=== PATIENT | male | born 1965 | race Caucasian/White ===

== ENCOUNTER → 2017-04-08 09:30 | Outpatient (CLI) | payer MEDICAID ==
[2016-05-19 04:00] VITALS: BMI 26.5
[~2017-04-08 09:30] MED LIST: ANTIVERT25 MG PO; BENTYL10 MG PO; CYCLOBENZAPRINE10 MG PO; ENULOSE10 G/15 ML PO; HYDROCODON-ACE1 EAC7 PO; HYDROCODONE-APA1 TAB PO; IPRAT-ALBUT 0.5-3 ML UPD; LEVAQUIN750 MG PO; MEVACOR20 MG PO; MIRALAX17 GM PO; MUCINEX600 MG PO; NICODERM C1 PATCH .1 TRANSDERM; PERCOCET 10/3251 TA1 PO; PRILOSEC20 MG PO; PROZAC40 MG PO; REQUIP1 MG PO; ROBAXIN500 MG PO; TESSALON PERLE100 MG PO; XANAX0.5 MG PO; ZESTORETIC 10/11 TAB PO
[2017-04-08 11:05] LABS: BASOPHILS 0.2 % (0-2); EOSINOPHILS 0.4 % (0-7); HEMATOCRIT 43.9 % (42.0-54.0); IMMATURE GRANULOCYTES 0.1 % (0-5); LYMPHOCYTES 34.7 % (15-50); MCH 30.2 pg (26.0-34.0); MCHC 34.2 g/dL (31.0-37.0); MCV 88.5 fL (80.0-100.0); MEAN PLATELET VOLUME 9.4 fL (7.4-10.4); MONOCYTES 5.5 % (2-11); NEUTROPHILS 59.1 % (40-80); RBC 4.96 10x6/uL (4.20-6.10); RDW 12.9 % (11.5-14.5); WBC 8.6 10x3/uL (4.8-10.8)
[2017-04-08 11:11] LABS: PLATELET COUNT 200 10x3/uL (130-400)
[2017-04-09 08:22] LABS: IMMUNOGLOBULIN E 5 IU/mL (0-100)
[2017-04-09 09:18] LABS: IMMUNOGLOBULIN A 208 mg/dL (90-386); IMMUNOGLOBULIN G 955 mg/dL (700-1600); IMMUNOGLOBULIN M 22 mg/dL (20-172)
== END | disposition home or self-care (01) ==
LOC: D.RT 09:30
PROVIDERS: Internal Medicine Pulmonary Disease
DX: J44.9 Chronic obstructive pulmonary disease, unspecified (principal)

== ENCOUNTER 2017-06-25 15:03 | Emergency (ER) | payer MEDICAID ==
[2016-05-19 04:00] VITALS: BMI 26.5
[2017-06-25 17:01] LABS: BASOPHILS 0.3 % (0-2); EOSINOPHILS 0.6 % (0-7); HEMATOCRIT 42.6 % (42.0-54.0); HEMOGLOBIN 14.6 g/dL (13.5-17.5); IMMATURE GRANULOCYTES 0.1 % (0-5); LYMPHOCYTES 38.2 % (15-50); MCHC 34.3 g/dL (31.0-37.0); MCV 87.7 fL (80.0-100.0); MONOCYTES 6.6 % (2-11); NEUTROPHILS 54.2 % (40-80); PLATELET COUNT 166 10x3/uL (130-400); RBC 4.86 10x6/uL (4.20-6.10); RDW 12.5 % (11.5-14.5); WBC 6.7 10x3/uL (4.8-10.8)
[2017-06-25 17:15] LABS: APTT 29.8 SECONDS (22.8-39.4); INR 1.01 (0.85-1.17); PROTIME 13.1 SECONDS (11.6-15.0)
[2017-06-25 17:23] LABS: ALBUMIN 3.9 g/dL (3.4-5.0); ALKALINE PHOSPHATASE 114 U/L (46-116); ALT (SGPT) 28 U/L (10-68); BILIRUBIN - TOTAL 0.45 mg/dL (0.2-1.3); CALC OSMOLALITY 276 mosm/kg (275-300); CALCIUM 8.9 mg/dL (8.5-10.1); CARBON DIOXIDE 31.6 mmol/L (21.0-32.0); CHLORIDE - SERUM 100 mmol/L (98-107); CREATININE - SERUM 0.8 mg/dL (0.6-1.3); GLUCOSE 107 mg/dL (74-106); SODIUM 140 mmol/L (136-145); UREA NITROGEN 6 mg/dL (7-18); eGFR NON AFRICAN AMERICAN > 90 mL/min (90-120)
== END 2017-06-25 19:55 | disposition home or self-care (01) ==
LOC: D.ER 15:03
PROVIDERS: Emergency Medicine
DX: R19.4 Change in bowel habit (principal); E87.6 Hypokalemia; K21.9 Gastro-esophageal reflux disease without esophagitis; I10 Essential (primary) hypertension

== ENCOUNTER → 2018-01-08 07:22 | Outpatient (CLI) | payer MEDICAID ==
[2016-05-19 04:00] VITALS: BMI 26.5
== END | disposition home or self-care (01) ==
LOC: D.RT 07:22
DX: J44.9 Chronic obstructive pulmonary disease, unspecified (principal)

== ENCOUNTER 2018-01-27 08:45 | Outpatient (CLI) | payer MEDICAID ==
[~2018-01-27] VITALS: Ht 172.7 cm; Wt 82.6 kg
[2018-01-27] MEDS ORDERED: BREO ELLIPTA 21 EACH (09:08)
[2018-01-27 09:17] VITALS: BP 133/88; Ht 172.7 cm; Wt 82.6 kg
[2018-01-27 09:25] LABS: BASOPHILS 0.4 % (0-2); EOSINOPHILS 1.1 % (0-7); HEMATOCRIT 40.4 % (42.0-54.0); HEMOGLOBIN 13.6 g/dL (13.5-17.5); IMMATURE GRANULOCYTES 0.3 % (0-5); LYMPHOCYTES 30.2 % (15-50); MCH 30.1 pg (26.0-34.0); MCHC 33.7 g/dL (31.0-37.0); MCV 89.4 fL (80.0-100.0); MONOCYTES 6.5 % (2-11); NEUTROPHILS 61.5 % (40-80); PLATELET COUNT 195 10x3/uL (130-400); RBC 4.52 10x6/uL (4.20-6.10); RDW 12.7 % (11.5-14.5)
[2018-01-27 09:31] LABS: APTT 29.1 SECONDS (22.8-39.4); INR 0.98 (0.85-1.17); PROTIME 12.6 SECONDS (11.6-15.0)
[2018-01-27 13:16] LABS: EOS BF 16 %; MACROPHAGES BF 22 %; MESOTHELIALS BF 38 %; NEUT - BF 9 %
[2018-01-29 15:28] LABS: AFB SPECIMEN PROCESSING Concentration (())
[2018-01-30 10:20] LABS: FUNGUS STAIN Final report (())
[2018-02-06 08:16] LABS: VIRAL - RESULT No virus isolated. (())
[2018-02-25 15:28] LABS: FUNGUS MYCOLOGY CULTURE Final report (())
[2018-03-23 13:13] LABS: ACID FAST CULTURE Negative (()); ACID FAST SMEAR Negative (())
== END 2018-01-27 13:45 | disposition home or self-care (01) ==
LOC: D.OPS 08:45
PROVIDERS: Internal Medicine Pulmonary Disease
DX: J84.9 Interstitial pulmonary disease, unspecified (principal); J44.9 Chronic obstructive pulmonary disease, unspecified; R05 Cough; J30.9 Allergic rhinitis, unspecified; K21.9 Gastro-esophageal reflux disease without esophagitis; Z72.0 Tobacco use; R93.8 Abnormal findings on diagnostic imaging of other specified body structures; R94.2 Abnormal results of pulmonary function studies; I10 Essential (primary) hypertension; Z01.812 Encounter for preprocedural laboratory examination

== ENCOUNTER 2018-02-26 23:49 | Observation (INO) | payer MEDICAID ==
[~2018-02-26] VITALS: Ht 172.7 cm; Wt 80.6 kg
--- NOTE | ~2018-02-26 | HEMODYNAMI ---
PATIENT:DAJA LAZARO MEDICAL RECORD: [id number] : 65 [facility] [facility] [id number] ADMISSION DATE: 02/27/18 Generatedon:02/27/201811:32 Patient name: DAJA LAZARO Patient #: [id number] SS N: : 1965 Date of study: 02/27/2018 Page: Of Hemodynamic Procedure Report Patient Data Patient Demographics Procedure consent was obtained First Name: DAJA Gender: Male Last Name: TEJAS : 1965 Middle Initial: E Age: 52 year(s) Patient #: [id number] Race: Unknown Additional ID: [id number] Contact details Address: [address] [place] [address] State: [place] City: [place] Zip code: [address] Admission Admission Data Admission Date: 02/27/2018 Admission Time: 2:18 Room #: .2125 Procedure Procedure Types Cath Procedure Diagnostic Procedure LHC LH w/Coronaries Sedation Charges Moderate Sedation up to 15 minutes PCI Procedure Coronary Stent Coronary Stent Initial PTCA PTCA Additional Peripheral Cath Diagnostic Procedure Cath Peripheral Ldpqf-Uvivwll-Vwu-Off Procedure Description Procedure Date Procedure Date: 02/27/2018 Procedure Start Time: 11:06 Procedure End Time: 11:30 Procedure Staff Name Function Jesus Lake MD Performing Physician Michelle Castro RT Monitor Carli Ashton RN Nurse Marizol Nguyen RT Scrub Procedure Data Cath Procedure Fluoroscopy Diagnostic fluoroscopy Total fluoroscopy Time: 7.2 time: 7.2 min min Diagnostic fluoroscopy Total fluoroscopy dose: dose: 1318 mGy 1318 mGy Contrast Material Contrast Material Type Amount (ml) Isovue 300 175 Entry Location Entry Primary Successful Side Size Upsize Upsize Entry Closure Succes sful Closure Location (Fr) 1 (Fr) 2 (Fr) Remarks Device Remarks Femoral Right 6 Fr Exoseal artery Short Estimated blood loss: 10 ml Diagnostic catheters Device Type Used For End Catheter Placement MULTIPACK Pigtail 5 Fr Procedure catheter MULTIPACK JL 4.0 5Fr Procedure catheter MULTIPACK 3DRC 5Fr Procedure catheter Procedure Complications No complications Procedure Medications Medication Administration Route Dosage Oxygen NC 2 l/min Lidocaine 2% added to field 20 Heparin Flush Bag added to field 2 bags (1000units/500ml NS) 0.9% NaCl I.V. 100 ml/hr Versed I.V. 2 mg Fentanyl I.V. 100 mcg Versed I.V. 1 mg Fentanyl I.V. 50 mcg Versed I.V. 1 mg Fentanyl I.V. 50 mcg Heparin Bolus I.V. 4000 units Integrilin (Bolus I.V. 7.3 ml 2mg/ml) Versed I.V. 0.5 mg Fentanyl I.V. 25 mcg Plavix P.O. 600 mg Hemodynamics Rest Heart Rate: 72 (bpm) Snapshots Pre Cath Intra NCS Post Cath Vital Signs Time Heart Resp SPO2 etCO2 NIBP (mmHg) Rhythm Pain Status Sedation Rate (ipm) (%) (mmHg) Level (bpm) 10:43:38 75 15 95 0 128/90(111) NSR 4 (11) , 10(A) Distressing 10:47:48 79 15 92 37.1 131/83(110) NSR 4 (11) , 10(A) Distressing 10:51:57 79 13 97 28.9 123/88(114) NSR 4 (11) , 10(A) Distressing 10:56:05 74 16 97 13.3 114/84(97) NSR 4 (11) , 10(A) Distressing 11:00:09 77 18 97 19.3 113/87(110) NSR 4 (11) , 10(A) Distressing 11:04:15 73 18 97 17.8 104/72(94) NSR 4 (11) , 10(A) Distressing 11:08:21 76 16 97 17 101/70(96) NSR 4 (11) , 9(A) Distressing 11:13:22 78 16 97 20 114/79(89) NSR 4 (11) , 9(A) Distressing 11:17:23 77 16 97 22.2 111/70(91) NSR 4 (11) , 9(A) Distressing 11:21:29 75 16 97 8.1 93/68(85) NSR 4 (11) , 9(A) Distressing 11:25:35 74 17 97 21.5 100/57(77) NSR 4 (11) , 10(A) Distressing Medications Time Medication Route Dose Verified Delivered Reason Notes Effectiveness by by 10:43:53 Oxygen NC 2 Jesus Buffie used for l/min Aleksandra Ashton RN procedure 10:43:58 Lidocaine 2% added 20ml Jesus Jesus for local to vial Aleksandra Lake MD anesthetic field 10:44:06 Heparin Flush added 2 Jesus Jesus used for Bag to bags Aleksandra Lake MD procedure (1000units/500ml field NS) 10:44:14 0.9% NaCl I.V. 100 Jesus Buffie Per physician ml/hr Aleksandra Ashton RN 11:01:40 Versed I.V. 2 mg Jesus Buffie for sedation Aleksandra Ashton RN 11:01:45 Fentanyl I.V. 100 Jesus Buffie for sedation mcg Aleksandra Ashton RN 11:05:52 Versed I.V. 1 mg Jesus Rhoadesie for sedation Aleksandra Ashton RN 11:05:56 Fentanyl I.V. 50 Jesus Buffie for sedation mcg Aleksandra Ashton RN 11:08:16 Versed I.V. 1 mg Jesus Buffie for sedation Aleksandra Ashton RN 11:08:19 Fentanyl I.V. 50 Jesus Buffie for sedation mcg Aleksandra Ashton RN 11:14:23 Heparin Bolus I.V. 4000 Jesus Buffie for VERIFI ED units Aleksandra Ashton RN anticoagulation WITH DR LAKE 11:15:12 Integrilin I.V. 7.3 Jesus Boyce for WASTED (Bolus 2mg/ml) ml Aleksandra Ashton RN antiplatelet 2.7 ML therapy OF VIAL 11:21:38 Versed I.V. 0.5 Jesus Buffie for sedation mg Aleksandra Ashton RN 11:21:42 Fentanyl I.V. 25 Jesus Buffie for sedation mcg Aleksandra Ashton RN 11:28:46 Plavix P.O. 600 Jesus Buffie for mg Aleksandra Ashton RN antiplatelet therapy Procedure Log Time Note 10:24:21 Diagnostic Cath status Elective 10:24:23 Michelle Castro RT(R) sent for patient. Start room use. 10:24:24 Time tracking: Regular hours 10:24:28 Plan of Care:Hemodynamics will remain stable., Cardiac rhythm will remain stable., Comfort level will be maintained., Respiratory function will remain adequate., Patient/ family verbilizes understanding of procedure., Procedure tolerated without complication., Recovers from procedure without complications.. 10:24:35 Patient received from Med II to CCL 2 Alert and oriented. Tansferred to table in Supine position. 10:41:57 Warm blankets applied, and rebecca hugger turned on for patient comfort. 10:41:58 Correct patient and procedure confirmed by team. 10:41:59 Signed procedure consent form obtained from patient. 10:42:01 ECG and BP/O2 sat monitors applied to patient. 10:42:03 Vital chart was started 10:42:05 Baseline sample Acquired. 10:42:08 Rhythm: sinus rhythm 10:42:09 Full Disclosure recording started 10:42:16 H&P Date Dictated: 02/27/2018 New H&P dictated by physician.. 10:42:18 Pre-procedure instructions explained to patient. 10:42:18 Pre-op teaching completed and patient verbalized understanding. 10:42:20 Family unavailable. 10:42:25 Patient NPO since Midnight. 10:42:37 Is the patient allergic to Iodine/contrast media? No. 10:42:39 Was the patient premedicated? No 10:42:41 Is patient on blood thinner?Yes 10:42:44 ACC The patient was administered the following blood thiners within the last 24 hours: ACCPlavix 10:42:47 Patient diabetic? No. 10:42:49 Previous problem with sedation/anesthesia? No ? 10:42:54 Snore? Yes 10:43:06 Sleep apnea? No 10:43:07 Deviated septum? No 10:43:07 Opens mouth fully? Yes 10:43:08 Sticks out tongue? Yes 10:43:22 Airway obstruction? Yes copd chronic pneumonia 10:43:26 Dentures? No ? 10:43:30 Pre procedure: right dorsailis pedis pulse 1+ Palpable, but thready & weak; easily obliterated 10:43:32 Pre procedure: left dorsailis pedis pulse 1+ Palpable, but thready & weak; easily obliterated 10:43:36 Patient pain scale 4/10 ?. 10:43:42 IV patent on arrival in right forearm with 0.9% NaCl at [facility]. 10:43:45 Lab results completed and on chart. 10:43:51 Bilateral groins area was prepped with chlora-prep and draped in sterile fashion 10:43:53 Oxygen 2 l/min NC was administered by Carli Ashton RN; used for procedure; 10:43:53 Alarms reviewed by R. N. 10:43:53 Sharps counted by scrub and verified by R.N. 10:43:58 Lidocaine 2% 20ml vial added to field was administered by Jesus Lake MD; for local anesthetic; 10:44:06 Heparin Flush Bag (1000units/500ml NS) 2 bags added to field was administered by Jesus Lake MD; used for procedure; 10:44:14 0.9% NaCl 100 ml/hr I.V. was administered by Carli Ashton RN; Per physician; 10:52:15 Physician paged 11:01:17 Physician arrived 11::17 --------ALL STOP TIME OUT------ 11:01:18 Final Timeout: patient, procedure, and site verified with staff and physician. All members of the team are in agreement. 11:01:22 Bilateral groins site verified by team. 11:01:27 Physical assessment completed. ASA score P 2 - A patient with mild systemic disease as per Jesus Lake MD. 11:01:32 Sedation plan: IV Moderate Sedation Medication:Versed, Fentanyl 11:01:40 Versed 2 mg I.V. was administered by Carli Ashton RN; for sedation; 11::45 Fentanyl 100 mcg I.V. was administered by Carli Ashton RN; for sedation; 11:02:07 Use device set Femoral Dx 11:02:09 ACIST Syringe (62092) opened to sterile field. 11:02:09 Bag Decanter (2002) opened to sterile field. 11:02:11 Medline Cath Pack ([id number]) opened to sterile field. 11:02:17 Zero performed for pressure channel P1 11:03:21 SHEATH 6Fr Prelude ([id number]) opened to sterile field. 11:03:24 DIAGNOSTIC WIRE .035 260cm J wire (456639) opened to sterile field. 11:03:27 ACIST Hand Control (24525) opened to sterile field. 11:03:27 ACIST Manifold (48396) opened to sterile field. 11:03:30 DIAGNOSTIC Multipack 5Fr catheter set ([id number]) opened to sterile field. 11:03:31 Tegaderm 4 x 4 (1626W) opened to sterile field. 11:03:38 PERCUTANEOUS ENTRY 19GA needle opened to sterile field. 11:05:52 Versed 1 mg I.V. was administered by Carli Ashton RN; for sedation; 11::56 Fentanyl 50 mcg I.V. was administered by Carli Ashton RN; for sedation; 11:06:33 Procedure started. 11:06:41 Local anesthetic to right femoral artery with Lidocaine 2% by Jesus Lake MD.INITIAL ACCESS ONLY 11:07:30 A 6 Fr Short sheath was inserted into the Right Femoral artery 11:08:16 Versed 1 mg I.V. was administered by Carli Ashton RN; for sedation; 11:08:19 Fentanyl 50 mcg I.V. was administered by Carli Ashton RN; for sedation; 11:09:00 A MULTIPACK Pigtail 5 Fr catheter was advanced over the wire and used for Procedure. 11:09:08 LV angiography performed. 11:09:57 Left leg runoff performed. 11:09:58 Right leg runoff performed. 11:10:06 Catheter removed. 11:10:21 A MULTIPACK JL 4.0 5Fr catheter was advanced over the wire and used for Procedure. 11:11:48 LCA angiography performed. 11:11:50 Catheter removed. 11:12:00 A MULTIPACK 3DRC 5Fr catheter was advanced over the wire and used for Procedure. 11:12:10 RCA angiography performed. 11:12:43 INFLATOR Merit BasixCompak (ZU1574) opened to sterile field. 11:13:40 GUIDE 6FR XBLAD 3.5 catheter ([id number]) opened to sterile field. 11:13:41 CHOICE PT Extra Support 182cm wire ([id number]) opened to sterile field. 11:13:56 Catheter removed. 11:13:58 Proceeding to intervention. 11:14:12 6 Fr XBLAD 3.5 guide catheter was inserted over the wire 11:14:20 Choice pt ex wire advanced. 11:14:21 Wire advanced across lesion. 11:14:23 Heparin Bolus 4000 units I.V. was administered by Carli Ashton RN; for anticoagulation; VERIFIED WITH DR LAKE 11:15:12 Integrilin (Bolus 2mg/ml) 7.3 ml I.V. was administered by Carli Ashton RN; for antiplatelet therapy; WASTED 2.7 ML OF VIAL 11:17:46 Place stent Inflation Number: 1 A INTEGRITY RX 2.5 x 26 stent ([id number]) was prepped and advanced across the Mid LAD. The stent was deployed at 15 CHARLY for 0:07 (min:sec). 11:20:32 Wire redirected to diag. 11:21:38 Versed 0.5 mg I.V. was administered by Carli Ashton RN; for sedation; 11::42 Fentanyl 25 mcg I.V. was administered by Carli Ashton RN; for sedation; 11:21:49 Inflate balloon Inflation number: 1 A EUPHORA 2.0 x 12 Balloon ([id number]) was prepped and advanced across the 2nd Diag, then inflated to 13 CHARLY for 0:11 (min:sec). 11:22:14 Inflation number: 2 The EUPHORA 2.0 x 12 Balloon ([id number]) was reinflated across the 2nd Diag, to 13 CHARLY for 0:20 (min:sec). 11:23:49 Inflation number: 2 The EUPHORA 2.0 x 12 Balloon ([id number]) was reinflated across the Mid LAD, to 13 CHARLY for 0:07 (min:sec). 11:24:39 EXOSEAL 6Fr (EX600) opened to sterile field. 11:24:55 Wire removed. 11:24:55 Guide catheter removed. 11:25:08 Sheath removed intact; hemostasis achieved with Exoseal to the Right Femoral artery. 11:26:07 Procedure ended.(Physican Out) 11:26:33 Fluoroscopy time 07.20 minutes. ::38 Fluoroscopy dose: 1318 mGy ::38 Flurop Dose total: 1318 11::43 Contrast amount:Isovue 300 175ml. 11:26:45 Sharps counted by scrub and verified by R.N. 11:26:47 Insertion/operative site no bleeding no hematoma. 11:26:52 Post right femoral artery:stable 11:26:56 Post Procedure Pulses reassessed and unchanged 11:26:59 Post-procedure physical assessment completed. ASA score P 2 - A patient with mild systemic disease as per Jesus Lake MD. 11:27:06 Post procedure rhythm: unchanged. 11:27:09 Estimated blood loss: 10 ml 11:27:11 Post procedure instruction explained to patient.Patient verbalizes understanding. 11::39 Procedure type changed to Cath procedure, Diagnostic procedure, LHC, LHC w/Coronaries, Sedation Charges, Moderate Sedation up to 15 minutes, PCI procedure, Coronary Stent, Coronary Stent Initial, PTCA, PTCA Additional, Peripheral Cath Diagnostic Procedure, Cath Peripheral, Macci-Mqgemix-Osd-Off 11::43 Procedure and supply charges have been captured, reviewed, submitted and are correct. 11::39 Procedure Complication : No complications 11::43 Vital chart was stopped 11::46 Plavix 600 mg P.O. was administered by Carli Ashton RN; for antiplatelet therapy; 11::55 See physician's report for complete and final results. 11::57 Report given to Pre/Post Procedure Room. 11:30:26 Patient transfered to Pre/Post Procedure Room with Stretcher. 11:30:44 Procedure ended. 11:30:44 Full Disclosure recording stopped 11:30:47 End room use (Document Last) 11:30:58 ACC-PCI Only Patient was given prescriptions, or instructed by Jesus Lake MD to start/continue the following medications upon discharge: Plavix Intervention Summary Intervention Notes Time ActionType Lesion and Equipment Action# Pressure Duration Attributes Used 11:17:46 Place stent Mid LAD INTEGRITY RX 1 15 00:07 2.5 x 26 stent ([id number]) 11:21:49 Inflate 2nd Diag EUPHORA 2.0 1 13 00:11 balloon x 12 Balloon ([id number]) 11:22:14 Reinflate 2nd Diag EUPHORA 2.0 2 13 00:20 balloon x 12 Balloon ([id number]) 11:23:49 Reinflate Mid LAD EUPHORA 2.0 2 13 00:07 balloon x 12 Balloon ([id number]) Device Usage Item Name Manufacture Quantity Catalog Number Hospital Part Current Mini [facility] Lot# / Charge Number Stock Stock Serial# Code [facility] 1 17867 358313 757783 226774 20 Syringe Medical (84744) Systems Inc Bag Decanter Microtek 1 2001S 197449 55062 581267 5 () Medical Inc. Medline Cath Cardinal 1 [id number] 195395 58641 146458 5 Pack Health ([id number]) SHEATH 6Fr Merit 1 [id number] 119983 420845 905189 5 Prelude Medical ([id number]) DIAGNOSTIC St [place] 1 817952 650893 132786 531305 30 WIRE .035 260cm J wire (171311) ACIST Hand Acist 1 55459 253012 538025 594717 5 Control Medical (26924) Systems Inc ACIST Acist 1 89198 613698 410617 994198 5 Manifold Medical (39370) Systems Inc DIAGNOSTIC Cardinal 1 YK5439 668120 43383 596895 30 Multipack Bib + Tuck 5Fr catheter set (SM2550) Tegaderm 4 x 3M 1 1626W 805898 316815 691057 5 4 (1626W) PERCUTANEOUS [facility] 1 M04847 652447 556295 5 ENTRY 19GA needle MULTIPACK Cardinal 1 791830 5 Pigtail 5 Fr Health catheter MULTIPACK JL Cardinal 1 929416 5 4.0 5Fr Health catheter MULTIPACK Cardinal 1 129376 5 3DRC 5Fr Health catheter INFLATOR Merit 1 [id number] 742370 969007 438127 15 ecomom BasixCompak (KF6359) GUIDE 6FR Cardinal 1 [id number] 564669 141241 795723 10 XBLAD 3.5 Health catheter ([id number]) CHOICE PT [place] 1 [id number] 074378 630463 295374 5 Extra Scientific Support 182cm wire ([id number]) INTEGRITY RX Medtronic 1 [id number] 339161 206613 882997 5 [id number] 2.5 x 26 stent ([id number]) EUPHORA 2.0 Medtronic 1 [id number] 048135 178119 614718 5 [id number] x 12 Balloon ([id number]) EXOSEAL 6Fr Cardinal 1 EX600 113525 650538 576112 10 (EX600) Health Signature Audit [place] Stage Time Signature Unsigned Intra-Procedure 02/27/2018 Michelle Castro 11:32:39 AM RT(R) Signatures Monitor : Michelle Matthew Signature : RT Date : Time : [address] [place] [address]
--- NOTE | ~2018-02-26 | OP ---
PATIENT NAME: DAJA LAZARO MEDICAL RECORD: [id number] :65 LOCATION:[facility] ADMISSION DATE:02/27/18 SURGEON: PURNIMA CARTER MD DATE OF OPERATION: 02/27/2018 PROCEDURES: 1. PTCA stent LAD. 2. Left heart catheterization. 3. Selective coronary angiography. 4. Left ventriculogram. 5. PTCA, LAD diagonal PROCEDURE IN DETAIL: After informed consent was obtained and after detailed description of the risks, benefits as well as alternative therapies, the patient elected to proceed with angiogram and angioplasty. The right femoral area is prepped and draped in normal sterile fashion. Right femoral artery was cannulated via modified Seldinger technique with placement of 6-Iraqi sheath. All catheters exchanged through this sheath. FINDINGS: The left ventriculogram was performed in standard 30-degree JONES view, reveals good cardiac wall motion throughout all segments. Overall ejection fraction estimated 60%. SELECTIVE CORONARY ANGIOGRAPHY: 1. Left main is with no significant angiographic disease. 2. Left anterior descending has 75% to 80% stenosis in the mid vessel, otherwise only mild irregularities. 3. Left circumflex has mild irregularities, but no flow-limiting stenosis. 4. Right coronary has mild irregularities, but no flow-limiting stenosis. PTCA STENT OF THE LAD: The stent used was a 2.5 x 26 mm Integrity, this caused plaque shift into the diagonal. The diagonal was ballooned with a 2-0 balloon. Result was 0% residual stenosis. OVERALL IMPRESSION: Successful PTCA stent of the LAD going from 75% initial stenosis to 0% residual with mormonism of RENATO-3 flow. TRANSINT:[id number] Voice Confirmation ID: [id number] DOCUMENT ID: [id number] PURNIMA CARTER MD CC: [id number] DICTATION DATE: 02/27/18 1131 PLANT GENERAL MANAGER: 02/27/18 1211 ADM IN [place] [id number] [place] [address]
--- NOTE | ~2018-02-26 | OP ---
PATIENT NAME: DAJA LAZARO MEDICAL RECORD: [id number] :65 LOCATION:[facility] ADMISSION DATE:02/27/18 SURGEON: PURNIMA CARTER MD DATE OF OPERATION: 02/27/2018 PROCEDURES: 1. Aortofemoral runoff. 2. Abdominal aortography. INDICATION: Claudication and peripheral vascular disease. PROCEDURE IN DETAIL: After informed consent was obtained and after a detailed explanation of risks, benefits as well as alternative therapies, the patient elected to proceed with angiogram and angioplasty. The right femoral area had a preexisting sheath. All catheters from cardiac intervention. All catheters exchanged through this sheath. FINDINGS: Abdominal aortography was performed. The catheter was pulled down for aortofemoral runoff. Abdominal aortography reveals no significant abdominal aortic disease, no dissection or aneurysmal formation. RIGHT LEG: A. Iliac: The common internal and external iliacs have mild irregularities, but no flow-limiting stenosis. B. Femoral system: The common superficial and deep femoral have mild irregularities, but no flow-limiting stenosis. C. Popliteal and infrapopliteal vessels have mild irregularities, but no flow-limiting stenosis. There is preserved 3-vessel runoff to the foot. LEFT LEG: A. Iliac: The common internal and external iliacs have mild irregularities, but no flow-limiting stenosis. B. Femoral system: The common superficial and deep femoral have mild irregularities, but no flow-limiting stenosis. C. Popliteal and infrapopliteal vessels have mild irregularities, but no flow-limiting stenosis. There is preserved 3-vessel runoff to the foot. OVERALL IMPRESSION: No significant peripheral vascular disease is present. Leg pain is nonarterial vascular in etiology. TRANSINT:[id number] Voice Confirmation ID: [id number] DOCUMENT ID: [id number] PURNIMA CARTER MD CC: [id number] DICTATION DATE: 02/27/18 1131 STEAM PRESSER: 02/27/18 1213 ADM IN [place] [id number] [place] [address]
[~2018-02-26 23:49] MED LIST changes: +BREO ELLIPTA 21 EACH
[2018-02-27 00:22] LABS: BASOPHILS 0.3 % (0-2); EOSINOPHILS 0.8 % (0-7); HEMATOCRIT 36.7 % (42.0-54.0); HEMOGLOBIN 12.6 g/dL (13.5-17.5); IMMATURE GRANULOCYTES 0.1 % (0-5); LYMPHOCYTES 39.4 % (15-50); MCH 30.3 pg (26.0-34.0); MCHC 34.3 g/dL (31.0-37.0); MCV 88.2 fL (80.0-100.0); MEAN PLATELET VOLUME 9.7 fL (7.4-10.4); MONOCYTES 6.7 % (2-11); NEUTROPHILS 52.7 % (40-80); PLATELET COUNT 170 10x3/uL (130-400); RBC 4.16 10x6/uL (4.20-6.10)
[2018-02-27 00:43] LABS: ALBUMIN 3.4 g/dL (3.4-5.0); ALKALINE PHOSPHATASE 69 U/L (46-116); ALT (SGPT) 18 U/L (10-68); CALC OSMOLALITY 282 mosm/kg (275-300); CALCIUM 8.6 mg/dL (8.5-10.1); CARBON DIOXIDE 27.4 mmol/L (21.0-32.0); CHLORIDE - SERUM 106 mmol/L (98-107); CREATININE - SERUM 0.9 mg/dL (0.6-1.3); GLUCOSE 105 mg/dL (74-106); PROTEIN - SERUM 6.8 g/dL (6.4-8.2); SODIUM 143 mmol/L (136-145); TROPONIN-I < 0.017 ng/mL (0.000-0.060); UREA NITROGEN 7 mg/dL (7-18); eGFR NON AFRICAN AMERICAN > 90 mL/min (90-120)
[2018-02-27 04:45] VITALS: BP 145/81; BMI 27.0
[2018-02-27 08:57] VITALS: Ht 172.7 cm; Wt 80.6 kg
[2018-02-27 09:03] LABS: BASOPHILS 0.2 % (0-2); EOSINOPHILS 1.1 % (0-7); HEMATOCRIT 37.9 % (42.0-54.0); HEMOGLOBIN 12.7 g/dL (13.5-17.5); IMMATURE GRANULOCYTES 0.2 % (0-5); LYMPHOCYTES 38.4 % (15-50); MCHC 33.5 g/dL (31.0-37.0); MCV 89.4 fL (80.0-100.0); MEAN PLATELET VOLUME 10.3 fL (7.4-10.4); MONOCYTES 5.8 % (2-11); NEUTROPHILS 54.3 % (40-80); PLATELET COUNT 177 10x3/uL (130-400); RBC 4.24 10x6/uL (4.20-6.10); RDW 13.2 % (11.5-14.5); WBC 8.5 10x3/uL (4.8-10.8)
[2018-02-27 09:07] LABS: CALC OSMOLALITY 276 mosm/kg (275-300); CALCIUM 8.7 mg/dL (8.5-10.1); CARBON DIOXIDE 26.3 mmol/L (21.0-32.0); CHLORIDE - SERUM 102 mmol/L (98-107); CREATININE - SERUM 0.9 mg/dL (0.6-1.3); GLUCOSE 94 mg/dL (74-106); POTASSIUM - SERUM 3.2 mmol/L (3.5-5.1); SODIUM 140 mmol/L (136-145); UREA NITROGEN 7 mg/dL (7-18); eGFR NON AFRICAN AMERICAN > 90 mL/min (90-120)
[2018-02-27 09:35] VITALS: BP 150/92
[2018-02-27] MEDS ORDERED: PLAVIX75 MG PO (11:54)
[2018-02-27] MEDS ORDERED: BAYER CHEWABLE81 MG PO (11:54)
== END 2018-02-27 15:31 | disposition home or self-care (01) ==
LOC: D.ER 23:49 → D.M2 02-27 02:18 → OBSVTIME 02-27 02:18 → D.CLR 02-27 11:55
PROVIDERS: Emergency Medicine; Internal Medicine Interventional Cardiology
DX: I25.110 Atherosclerotic heart disease of native coronary artery with unstable angina pectoris (principal); I73.9 Peripheral vascular disease, unspecified; I10 Essential (primary) hypertension; E78.5 Hyperlipidemia, unspecified; K75.9 Inflammatory liver disease, unspecified; J44.9 Chronic obstructive pulmonary disease, unspecified; F41.8 Other specified anxiety disorders; Z72.0 Tobacco use

== ENCOUNTER 2018-03-10 18:19 | Emergency (ER) | payer MEDICAID ==
[2018-02-27 08:57] VITALS: BMI 27.0
[~2018-03-10 18:19] MED LIST changes: +BAYER CHEWABLE81 MG PO; +PLAVIX75 MG PO
[2018-03-10 19:28] LABS: BASOPHILS 0.6 % (0-2); EOSINOPHILS 0.9 % (0-7); HEMATOCRIT 41.5 % (42.0-54.0); HEMOGLOBIN 14.6 g/dL (13.5-17.5); IMMATURE GRANULOCYTES 0.2 % (0-5); LYMPHOCYTES 42.8 % (15-50); MCH 30.7 pg (26.0-34.0); MCHC 35.2 g/dL (31.0-37.0); MCV 87.2 fL (80.0-100.0); MEAN PLATELET VOLUME 9.7 fL (7.4-10.4); MONOCYTES 6.1 % (2-11); NEUTROPHILS 49.4 % (40-80); PLATELET COUNT 186 10x3/uL (130-400); RBC 4.76 10x6/uL (4.20-6.10); RDW 12.6 % (11.5-14.5); WBC 8.2 10x3/uL (4.8-10.8)
[2018-03-10 19:39] LABS: ALBUMIN 3.8 g/dL (3.4-5.0); ALKALINE PHOSPHATASE 75 U/L (46-116); ALT (SGPT) 24 U/L (10-68); BILIRUBIN - TOTAL 0.44 mg/dL (0.2-1.3); CALC OSMOLALITY 276 mosm/kg (275-300); CALCIUM 9.5 mg/dL (8.5-10.1); CARBON DIOXIDE 25.1 mmol/L (21.0-32.0); CHLORIDE - SERUM 101 mmol/L (98-107); CREATININE - SERUM 0.8 mg/dL (0.6-1.3); GLUCOSE 120 mg/dL (74-106); POTASSIUM - SERUM 3.3 mmol/L (3.5-5.1); PROTEIN - SERUM 7.7 g/dL (6.4-8.2); SODIUM 139 mmol/L (136-145); UREA NITROGEN 7 mg/dL (7-18); eGFR NON AFRICAN AMERICAN > 90 mL/min (90-120)
[2018-03-10 19:50] LABS: CKMB 0.1 U/L (0.0-3.6); CREATINE KINASE 97 UL (21-232); TROPONIN-I 0.022 ng/mL (0.000-0.060)
== END 2018-03-10 22:35 | disposition home or self-care (01) ==
LOC: D.ER 18:19
PROVIDERS: Family Medicine
DX: R07.9 Chest pain, unspecified (principal); Z98.890 Other specified postprocedural states; I10 Essential (primary) hypertension; E87.6 Hypokalemia; F17.200 Nicotine dependence, unspecified, uncomplicated

== ENCOUNTER 2019-02-04 21:40 | Observation (INO) | payer MEDICAID ==
[~2019-02-04] VITALS: Ht 172.7 cm; Wt 81.8 kg
--- NOTE | ~2019-02-04 | HEMODYNAMI ---
PATIENT:DAJA LAZARO MEDICAL RECORD: [id number] : 65 LOCATION:[id number] ADMISSION DATE: 02/04/19 Generatedon:02/05/201914:37 Patient name: DAJA LAZARO Patient #: [id number] SS N: : 1965 Date of study: 02/05/2019 Page: Of Hemodynamic Procedure Report Patient Data Patient Demographics Procedure consent was obtained First Name: DAJA Gender: Male Last Name: TEJAS : 1965 Middle Initial: E Age: 53 year(s) Patient #: [id number] Race: Unknown Additional ID: [id number] Contact details [address]: [address] [place] [address] [facility] [place] [facility] Zip code: [address] Past Medical History Allergies: No known allergies Admission Admission Data Admission Date: 02/04/2019 Admission Time: 22:59 Room #: 2203 Procedure Procedure Types Cath Procedure Diagnostic Procedure C [facility] w/Coronaries Aortic Root Angiography Sedation Charges Moderate Sedation up to 15 minutes PCI Procedure Coronary Stent Coronary Stent Initial Procedure Description Procedure Date Procedure Date: 02/05/2019 Procedure Start Time: 14:09 Procedure End Time: 14:37 Procedure Staff Name Function Frederick Rudd MD Performing Physician Lavern Salazar RT Monitor Yolanda Valiente RN Nurse Marizol Nguyen RT Scrub Madi Silva RN Vp Security Procedure Data Cath Procedure Fluoroscopy Diagnostic fluoroscopy Total fluoroscopy Time: 5.1 time: 5.1 min min Diagnostic fluoroscopy Total fluoroscopy dose: dose: 1009 mGy 1009 mGy Contrast Material Contrast Material Type Amount (ml) Isovue 300 120 Entry Location Entry Primary Successful Side Size Upsize Upsize Entry Closure Succes sful Closure Location (Fr) 1 (Fr) 2 (Fr) Remarks Device Remarks Femoral Left 5 Fr 6 Fr Exoseal artery Short Estimated blood loss: 10 ml Diagnostic catheters Device Type Used For End Catheter Placement MULTIPACK JL 4.0 5Fr Left Coronary catheter Angiography MULTIPACK 3DRC 5Fr Right Coronary catheter Angiography MULTIPACK Pigtail 5 Fr LV Angiography catheter MULTIPACK Pigtail 5 Fr Aortic Root catheter Angiography Procedure Complications No complications Procedure Medications Medication Administration Route Dosage 0.9% NaCl I.V. 100 ml/hr Oxygen etCO2 Nasal cannula 2 l/min Lidocaine 2% added to field 20 Heparin Flush Bag added to field 2 bags (1000units/500ml NS) Versed I.V. 2 mg Fentanyl I.V. 50 mcg Versed I.V. 2 mg Fentanyl I.V. 50 mcg Heparin Bolus I.V. 8000 units Hemodynamics Rest Heart Rate: 71 (bpm) Pressure Samples Time Site Value (mmHg) Purpose Heart Use Rate(bpm) 14:15 LV 141/3,19 EDP 82 14:15 AO 132/71(103) Pullback 81 14:15 LV 141/1,18 Pullback 81 Gradients Valve Time Site 1 Site 2 Mean SEP/DFP Peak To Heart Use (mmHg) (sec/min) Peak Rate (mmHg) (bpm) Aortic 14:15 LV AO 15 20 9 81 141/1,18 132/71(103) Calculations Valve P-P Mean Valve Index Valve Source Name Gradient Area Flow (cm2) Aortic 9 15 9 15 Snapshots Pre Cath Intra NCS Post Cath Vital Signs Time Heart Resp SPO2 etCO2 NIBP (mmHg) Rhythm Pain Sedation Rate (ipm) (%) (mmHg) Status Level (bpm) 13:57:34 64 16 100 36.9 165/99(148) NSR 0 (11) 10(A) , No pain 14:01:48 69 16 98 37.7 153/94(130) NSR 0 (11) 10(A) , No pain 14:06:00 77 11 98 27.9 152/110(127) NSR 0 (11) 10(A) , No pain 14:10:12 76 12 98 24.1 149/103(121) NSR 0 (11) 9(A) , No pain 14:14:24 79 10 99 31.6 148/99(131) NSR 0 (11) 9(A) , No pain 14:18:23 83 11 98 38.4 136/97(127) NSR 0 (11) 9(A) , No pain 14:22:31 83 11 98 31.7 138/92(110) NSR 0 (11) 9(A) , No pain 14:26:41 84 11 98 26.3 127/88(106) NSR 0 (11) 9(A) , No pain 14:30:49 81 11 98 20.3 131/82(97) NSR 0 (11) 10(A) , No pain 14:34:57 83 12 98 24.1 137/84(112) NSR 0 (11) 10(A) , No pain Medications Time Medication Route Dose Verified Delivered Reason Notes Effectiveness by by 13:56:36 0.9% NaCl I.V. 100 Frederick Yolanda used for ml/hr Tobin Valiente sheriffs officer 13:56:42 Oxygen etCO2 2 Frederick Yolanda used for Nasal l/min Tobin Valiente procedure cannula RN 13:56:47 Lidocaine 2% added 20ml Frederick Frederick for local to vial Tobin Rudd MD anesthetic field 13:56:52 Heparin Flush added 2 Frederick Frederick used for Bag to bags Tobin Rudd MD procedure (1000units/500ml field NS) 14:03:53 Versed I.V. 2 mg Frederick Yolanda for sedation Tobin Valiente RN 14:03:59 Fentanyl I.V. 50 Frederick Yolanda for sedation mcg Tobin Valiente RN 14:08:01 Versed I.V. 2 mg Frederick Yolanda for sedation Tobin Valiente RN 14:08:12 Fentanyl I.V. 50 Frederick Yolanda for sedation mcg Tobin Valiente RN 14:19:40 Heparin Bolus I.V. 8000 Frederick Yolanda for verif ied units Tobin Valiente anticoagulation with Dr. NAMRATA Rudd Procedure Log Time Note 13:35:48 Time tracking: Regular hours (M-F 7:00 - 5:00) 13:35:52 Plan of Care:Hemodynamics will remain stable., Cardiac rhythm will remain stable., Comfort level will be maintained., Respiratory function will remain adequate., Patient/ family verbilizes understanding of procedure., Procedure tolerated without complication., Recovers from procedure without complications.. 13:36:49 Madi Silva RN sent for patient. Start room use. 13:52:23 Patient received from Med/Surg to CCL 2 Alert and oriented. Tansferred to table in Supine position. 13:52:24 Warm blankets applied, and rebecca hugger turned on for patient comfort. 13:52:24 Correct patient and procedure confirmed by team. 13::25 Signed procedure consent form obtained from patient. 13:52:26 ECG and BP/O2 sat monitors applied to patient. 13:52:27 Full Disclosure recording started 13:56:25 Vital chart was started 13:56:36 0.9% NaCl 100 ml/hr I.V. was administered by Yolanda Valiente RN; used for procedure; 13:56:42 Oxygen 2 l/min etCO2 Nasal cannula was administered by Yolanda Valienet RN; used for procedure; 13:56:47 Lidocaine 2% 20ml vial added to field was administered by Frederick Rudd MD; for local anesthetic; 13:56:52 Heparin Flush Bag (1000units/500ml NS) 2 bags added to field was administered by Frederick Rudd MD; used for procedure; 14:00:14 Baseline sample Acquired. 14:00:16 Rhythm: sinus rhythm 14:00:29 H&P Date Dictated: 02/05/2019 Within 30 days and on chart.. 14:00:31 Pre-procedure instructions explained to patient. 14:00:31 Pre-op teaching completed and patient verbalized understanding. 14:00:34 Family in waiting room. 14:00:36 Patient NPO since Midnight. 14:00:43 Patient allergic to No known allergies 14:00:45 Is the patient allergic to Iodine/contrast media? No. 14:00:47 Is patient on blood thinner?Yes 14:00:48 Patient diabetic? No. 14:00:59 Previous problem with sedation/anesthesia? No ? 14:01:02 Snore? No 14:01:12 Sleep apnea? No 14:01:14 Deviated septum? No 14:01:16 Opens mouth fully? Yes 14:01:17 Sticks out tongue? Yes 14:01:21 Airway obstruction? Yes COPD 14:01:23 Dentures? No ? 14:01:28 Pre procedure: left dorsailis pedis pulse 2+ Normal; easily identifiable; not easily obliterated 14:01:30 Patient pain scale 0/10 ?. 14:01:38 IV patent on arrival in left forearm with 0.9% NaCl at [facility]. 14:01:40 Lab results completed and on chart. 14:01:45 Left groin area was prepped with chlora-prep and draped in sterile fashion 14:01:45 Alarms reviewed by R. N. 14:01:46 Sharps counted by scrub and verified by R.N. 14:02:49 ACC The patient was administered the following blood thiners within the last 24 hours: ACCPlavix 14:02:56 Use device set Femoral Dx 14:02:58 ACIST Syringe (46035) opened to sterile field. 14:02:58 Bag Decanter (2002S) opened to sterile field. 14:02:58 Medline Cath Pack ([id number]) opened to sterile field. 14:02:59 DIAGNOSTIC WIRE .035 260cm J wire (757036) opened to sterile field. 14:03:00 ACIST Hand Control (76803) opened to sterile field. 14:03:00 ACIST Manifold (43603) opened to sterile field. 14:03:01 DIAGNOSTIC Multipack 5Fr catheter set (ID3173) opened to sterile field. 14:03:02 SHEATH 5FR Cameron (NKZ640) opened to sterile field. 14:03:03 Tegaderm 4 x 4 (1626W) opened to sterile field. 14:03:21 Final Timeout: patient, procedure, and site verified with staff and physician. All members of the team are in agreement. 14:03:22 Left groin site verified by team. 14:03:25 Maximum allowable Isovue 300 dose 300ml. Physician notified. (300ml for normal creatinines. For patients with creatinine of 1.7 or higher multiply weight(kg) x 5 divided by creatinine.) 14:03:29 Fire Safety Assessment: A--An alcohol-based skin anteseptic being used preoperatively., C--Open oxygen or nitrous oxide is being used., D--An ESU, laser, or fiber-optic light is being used. 14:03:31 Physical assessment completed. ASA score P 2 - A patient with mild systemic disease as per Frederick Rudd MD. 14:03:34 Sedation plan: IV Moderate Sedation Medication:Versed, Fentanyl 14:03:53 Versed 2 mg I.V. was administered by Yolanda Valiente RN; for sedation; 14:03:59 Fentanyl 50 mcg I.V. was administered by Yolanda Rocco RN; for sedation; 14:07:03 Zero performed for pressure channel P1 14:08:01 Versed 2 mg I.V. was administered by Yolanda Valiente RN; for sedation; 14:08:12 Fentanyl 50 mcg I.V. was administered by Yolanda Valiente RN; for sedation; 14:08:44 Procedure started. 14:09:14 Local anesthetic to left femerol artery with Lidocaine 2% by Frederick Rudd MD.INITIAL ACCESS ONLY 14:10:19 A 5 Fr sheath was inserted into the Left Femoral artery 14:10:56 A MULTIPACK JL 4.0 5Fr catheter was advanced over the wire and used for Left Coronary Angiography. 14:12:29 Catheter removed. 14:12:38 A MULTIPACK 3DRC 5Fr catheter was advanced over the wire and used for Right Coronary Angiography. 14:13:59 Catheter removed. 14:14:10 A MULTIPACK Pigtail 5 Fr catheter was advanced over the wire and used for LV Angiography. 14:14:18 Use device set RUDD PCI 14:14:20 SHEATH 6FR Cameron (NEF156) opened to sterile field. 14:14:23 TUBING High Pressure Extension Tubing (Tobin) ([id number]) opened to sterile field. 14:14:24 INFLATOR Merit BasixCompak (FB1630) opened to sterile field. 14:14:25 BMW 300cm Purdys 2 J wire ([id number]) opened to sterile field. 14:14:28 GUIDE 6FR XBLAD 3.5 catheter ([id number]) opened to sterile field. 14:14:36 LV hemodynamics recorded. 14:14:37 LV gram done using JONES 14:14:41 Injector settings: Ml/sec: 5, Volume: 15, 14:15:37 EF : 55 % 14:17:29 Catheter removed. 14:17:36 Sheath upsized to a 6 Fr Short. 14:17:54 6 Fr XBLAD 3.5 guide catheter was inserted over the wire 14:19:40 Heparin Bolus 8000 units I.V. was administered by Yolanda Valiente RN; for anticoagulation; verified with Dr. Rudd 14:20:36 BMW wire advanced. 14:23:03 Inflate balloon Inflation number: 1 A EUPHORA 2.0 x 20 Balloon ([id number]) was prepped and advanced across the Mid LAD, then inflated to 15 CHARLY for 0:35 (min:sec). 14:24:19 Balloon removed over the wire. 14:25:14 GUIDE 6FR EBU 3.5 catheter ([id number]) opened to sterile field. 14:27:11 Place stent Inflation Number: 2 A DEON OTW 2.5 x 30 stent ([id number]) was prepped and advanced across the Mid LAD. The stent was deployed at 10 CHARLY for 0:17 (min:sec). 14:27:57 Stent catheter was removed intact over wire. 14:28:01 Wire removed. 14:28:01 Guide catheter removed. 14:28:18 EXOSEAL 6Fr (EX600) opened to sterile field. 14:29:37 Procedure type changed to Cath procedure, Diagnostic procedure, LHC, LHC w/Coronaries, Aortic Root Angiography, Sedation Charges, Moderate Sedation up to 15 minutes, PCI procedure, Coronary Stent, Coronary Stent Initial 14:30:36 A MULTIPACK Pigtail 5 Fr catheter was advanced over the wire and used for Aortic Root Angiography. 14:32:25 Sheath removed intact; hemostasis achieved with Exoseal to the Left Femoral artery. 14:32:28 Procedure ended.(Physican Out) 14:32:35 Fluoroscopy time 05.10 minutes. 14:32:38 Fluoroscopy dose: 1009 mGy 14:32:38 Flurop Dose total: 1009 14:32:41 Contrast amount:Isovue 300 120ml. 14:32:58 Sharps counted by scrub and verified by R.N. 14:33:04 Insertion/operative site no bleeding no hematoma. 14:33:07 Post-op/insertion site Left Femoral artery dressed using a 4 x 4 and Tegaderm. 14:33:25 Post Procedure Pulses reassessed and unchanged 14:33:30 Post-procedure physical assessment completed. ASA score P 2 - A patient with mild systemic disease as per Frederick Rudd MD. 14:33:36 Post procedure rhythm: unchanged. 14:33:41 Estimated blood loss: 10 ml 14:33:43 Post procedure instruction explained to patient.Patient verbalizes understanding. 14:33:44 Patient needs reinforcement of post procedure teaching. 14:33:48 Procedure Complication : No complications 14:33:51 See physician's report for complete and final results. 14:35:12 Procedure and supply charges have been captured, reviewed, submitted and are correct. 14:35:23 Patient transfered to Pre/Post Procedure Room with Stretcher. 14:35:30 Vital chart was stopped 14:35:45 Report given to Pre/Post Procedure Room. 14:37:31 Procedure ended. 14:37:31 Full Disclosure recording stopped 14:37:35 End room use (Document Last) Intervention Summary Intervention Notes Time ActionType Lesion and Equipment Action# Pressure Duration Attributes Used 14:23:03 Inflate Mid LAD EUPHORA 2.0 x 1 15 00:35 balloon 20 Balloon ([id number]) 14:27:11 Place stent Mid LAD DEON OTW 2.5 2 10 00:17 x 30 stent ([id number]) Device Usage Item Name Manufacture Quantity Catalog Hospital Part Current Minim al Lot# / Number Charge Number Stock Stock Serial# Code ACIST Syringe Acist 1 12257 190289 867662 731702 20 (14489) Medical Systems Inc Bag Decanter Microtek 1 2001S 307068 93873 605675 5 (2001S) Medical Inc. Medline Cath Medline 1 [id number] 705857 71887 472225 5 Pack ([id number]) DIAGNOSTIC St Gurdeep 1 037317 945751 255005 228747 30 WIRE .035 260cm J wire (280106) ACIST Hand Acist 1 17251 339242 715346 091077 5 Control Medical (96310) Systems Inc ACIST Acist 1 75614 816283 377423 020861 5 Manifold Medical (32123) Systems Inc DIAGNOSTIC Cardinal 1 AK4107 912714 17774 945143 30 Multipack 5Fr Health catheter set (KM4563) SHEATH 5FR Terumo 1 YOX719 019311 904062 925049 5 Cameron (EBC554) Tegaderm 4 x 3M 1 1626W 511592 548627 653538 5 4 (1626W) MULTIPACK JL Cardinal 1 183133 5 4.0 5Fr Health catheter MULTIPACK Cardinal 1 341390 5 3DRC 5Fr Health catheter MULTIPACK Cardinal 1 636913 5 Pigtail 5 Fr Health catheter SHEATH 6FR Terumo 1 HRD156 426974 162224 680677 40 Cameron (CBL526) TUBING High Merit 1 YD4862Q 831781 30731 364954 10 Pressure Medical Extension Tubing (Rudd) (RT8530Y) INFLATOR Merit 1 RC0962 596700 774335 294739 15 Merit Medical BasixCompak (PQ0190) BMW 300cm Langston 1 [id number] 098361 190277 383469 5 Purdys 2 J Vascular wire (6006159M) GUIDE 6FR Cardinal 1 41266367 950393 134978 459257 10 XBLAD 3.5 Health catheter ([id number]) EUPHORA 2.0 x Medtronic 1 [id number] 360012 792640 018397 5 [id number] 20 Balloon (UAA0177U) GUIDE 6FR EBU Medtronic 1 VU7OHY58 989986 10272 217969 3 3.5 catheter (KC9WRT51) DEON OTW 2.5 Medtronic 1 [id number] 054293 80513 779469 5 [id number] x 30 stent ([id number]) EXOSEAL 6Fr Cardinal 1 EX600 419214 213548 189725 10 (EX600) Health Signature Audit [place] Stage Time Signature Unsigned Intra-Procedure 02/05/2019 Lavern 2:37:49 PM Counts RT(R) Signatures Monitor : Lavern Signature : Counts RT Date : Time : [place] [id number] [facility] [place] [address]
[2019-02-04 22:19] LABS: BASOPHILS 0.3 % (0-2); EOSINOPHILS 0.8 % (0-7); HEMATOCRIT 41.2 % (42.0-54.0); HEMOGLOBIN 14.1 g/dL (13.5-17.5); IMMATURE GRANULOCYTES 0.3 % (0-5); LYMPHOCYTES 30.3 % (15-50); MCH 29.6 pg (26.0-34.0); MCHC 34.2 g/dL (31.0-37.0); MCV 86.6 fL (80.0-100.0); MEAN PLATELET VOLUME 9.5 fL (7.4-10.4); MONOCYTES 4.8 % (2-11); NEUTROPHILS 63.5 % (40-80); PLATELET COUNT 193 10x3/uL (130-400); RBC 4.76 10x6/uL (4.20-6.10); RDW 13.6 % (11.5-14.5); WBC 11.5 10x3/uL (4.8-10.8)
[2019-02-04 22:23] LABS: APTT 28.7 SECONDS (22.8-39.4); INR 0.96 (0.85-1.17); PROTIME 12.3 SECONDS (11.6-15.0)
[2019-02-04 22:32] LABS: ALBUMIN 3.7 g/dL (3.4-5.0); ALKALINE PHOSPHATASE 85 U/L (46-116); ALT (SGPT) 18 U/L (10-68); BILIRUBIN - TOTAL 0.27 mg/dL (0.2-1.3); CALC OSMOLALITY 265 mosm/kg (275-300); CARBON DIOXIDE 28.8 mmol/L (21.0-32.0); CHLORIDE - SERUM 99 mmol/L (98-107); CREATININE - SERUM 0.9 mg/dL (0.6-1.3); GLUCOSE 115 mg/dL (74-106); POTASSIUM - SERUM 3.1 mmol/L (3.5-5.1); PROTEIN - SERUM 7.8 g/dL (6.4-8.2); SODIUM 133 mmol/L (136-145); UREA NITROGEN 9 mg/dL (7-18); eGFR NON AFRICAN AMERICAN > 90 mL/min (90-120)
[2019-02-04 22:35] VITALS: BP 147/99
[2019-02-04 22:46] LABS: CKMB 0.3 U/L (0.0-3.6); CREATINE KINASE 118 UL (21-232); MAGNESIUM - SERUM 1.7 mg/dL (1.8-2.4)
[2019-02-04 22:47] LABS: TROPONIN-I < 0.017 ng/mL (0.000-0.060)
--- NOTE | 2019-02-04 23:35 | NUR ---
RECIEVED TO FLOOD ACCOMPANIED BY ER STAFF. STATES PAIN IS LESSENING SINCE MORPHINE. STATES HE HAS HAD DIARRHEA FOR A COUPLE DAYS AND HAS HAD BACK, CHEST, AND STOMACHE PAIN. TELEMETRY APPLIED. WILL CONTINUE TO MONITOR.
[2019-02-04] MEDS ORDERED: TOPROL XL25 MG PO (23:46)
[2019-02-04] MEDS ORDERED: FLOMAX0.4 MG PO (23:47)
[2019-02-04] MEDS ORDERED: REQUIP1 MG PO (23:48)
[2019-02-04] MEDS ORDERED: LOVASTATIN40 MG PO (23:49)
[2019-02-04] MEDS ORDERED: HYDROCODON-ACE1 EAC7 PO (23:51)
[2019-02-04] MEDS ORDERED: SINGULAIR10 MG PO (23:51)
[2019-02-04] MEDS ORDERED: FENOFIBRATE160 MG PO (23:52)
[2019-02-04] MEDS ORDERED: LEVSIN/ANASP0.125 MG PO (23:54)
[2019-02-04] MEDS ORDERED: TESSALON PERLE100 MG PO (23:55)
[2019-02-04] MEDS ORDERED: CYCLOBENZAPRINE10 MG PO (23:56)
[2019-02-04] MEDS ORDERED: PROZAC40 MG PO (23:57)
[2019-02-04] MEDS ORDERED: OMEPRAZOLE40 MG PO (23:57)
[2019-02-04] MEDS ORDERED: LISINOPRIL10 MG PO (23:58)
[2019-02-05 00:55] VITALS: BP 146/94
--- NOTE | 2019-02-05 03:10 | NUR ---
I have reviewed this patient and I concur with the Shift Assessment completed by the Licensed Practical Nurse today this shift.
[2019-02-05 04:42] VITALS: BP 146/94; BMI 27.4
[2019-02-05 05:33] VITALS: BP 150/101
--- NOTE | 2019-02-05 08:19 | NUR ---
AWAKE AND ALERT. ORIENTED X3. NO C/O OF CHEST PAIN AT THIS TIME. REPORTS PAIN FROM RIGHT ABDOMEN TO LEFT SHOULDER AREA. WILL MONITOR. SKIN IS INTACT WITHOUT REDNESS. SL TO RIGHT FOREARM IS PATENT WITHOUT REDNESS AT INSERTION SITE. DENIES NEEDS. PLACED NPO AT THIS TIME FOR POSSIBLE PROCEDURE.
[2019-02-05 08:36] LABS: BASOPHILS 0.3 % (0-2); EOSINOPHILS 0.6 % (0-7); HEMATOCRIT 38.2 % (42.0-54.0); IMMATURE GRANULOCYTES 0.2 % (0-5); LYMPHOCYTES 31.2 % (15-50); MCH 29.7 pg (26.0-34.0); MCV 87.4 fL (80.0-100.0); MEAN PLATELET VOLUME 9.6 fL (7.4-10.4); MONOCYTES 5.4 % (2-11); NEUTROPHILS 62.3 % (40-80); PLATELET COUNT 188 10x3/uL (130-400); RBC 4.37 10x6/uL (4.20-6.10); RDW 13.8 % (11.5-14.5); WBC 10.8 10x3/uL (4.8-10.8)
[2019-02-05 08:43] LABS: CALC OSMOLALITY 279 mosm/kg (275-300); CALCIUM 9.2 mg/dL (8.5-10.1); CARBON DIOXIDE 24.5 mmol/L (21.0-32.0); CHLORIDE - SERUM 102 mmol/L (98-107); CREATININE - SERUM 0.8 mg/dL (0.6-1.3); GLUCOSE 112 mg/dL (74-106); POTASSIUM - SERUM 3.4 mmol/L (3.5-5.1); SODIUM 141 mmol/L (136-145); UREA NITROGEN 8 mg/dL (7-18); eGFR NON AFRICAN AMERICAN > 90 mL/min (90-120)
[2019-02-05 08:54] VITALS: BP 161/93
--- NOTE | 2019-02-05 09:47 | NUR ---
REQUESTED AND GIVNE 4MG MORPHINE SLOW IVP FOR C/O NECK AND BACK OF HEAD PAIN LEVEL 10. WILL MONITOR.
[2019-02-05 11:39] VITALS: Ht 172.7 cm; Wt 81.8 kg
[2019-02-05 12:11] VITALS: BP 157/99
--- NOTE | 2019-02-05 13:45 | NUR ---
OFF UNIT VIA BED FOR SHORTHAND REPORTER. FAMILY IN ROOM.
--- NOTE | 2019-02-05 15:10 | NUR ---
PATIENT RECIEVED FROM THE [facility] VIA HOSPITAL BED AND [facility] TEAM. PATIENT IS STABLE AND VSS. O2PER NC AT 2L/MIN. DRESSING TO LT GROIN C/D/I. PATIENT IS SLEEPY EASILY AROUSES TO VOICE. WILL CONTINUE TO MONITOR CLOSELY. SR UP X 2 BED IN LOW POSITION AND CALL LIGHT IN REACH.
--- NOTE | 2019-02-05 16:22 | MORECARE ---
CASE MANAGEMENT DISCHARGE SUMMARY PATIENT: DAJA LAZARO UNIT: [id number] ADM DATE: 02/04/19 AGE: 53 : 65 SEX: M ROOM/BED: D.2137 AUTHOR: ADRYAN DAVID PHYSICIAN: REFERRING PHYSICIAN: VERONICA SWEET MD DATE OF SERVICE: 02/05/19 Discharge Plan Patient Name: DAJA LAZARO Facility[facility]:[place] : 1965 Planned Disposition: Home Anticipated Discharge Date: 02/05/19 Discharge Date: Expected LOS: 1 Initial Reviewer: [email or web address] Initial Review Date: 02/05/2019 Generated: 02/05/19 5:22 pm Patient Name: DAJA LAZARO Page 38457 at 1622 All edits/amendments must be made on the electronic document DICTATION DATE: 02/05/191621 TREE DOCTOR: BRITTNEE 02/05/191621 RPT#: [id number] DC DATE: STATUS: ADM IN [facility] [address] [place] [address] END OF REPORT
--- NOTE | 2019-02-06 12:17 | NUR ---
PT CALLS TO REPORT HE DID NOT GET RX'S FOR PLAVIX AND HYDROCODONE. RX FOR PLAVIX 75 MG ONE DAILY CALLED TO -AP. ADVISED HE WOULD HAVE TO CONTACT PCP REGARDING RX FOR HYDROCODONE.
== END 2019-02-05 23:45 | disposition home or self-care (01) ==
LOC: D.ER 21:40 → D.EDHOLD 22:59 → D.MS 22:59 → OBSVTIME 22:59 → D.MS 23:19 → D.M2 02-05 14:57
PROVIDERS: Family Medicine; Internal Medicine Cardiovascular Disease; ADMIT Family Medicine; ATTEND Family Medicine
DX: I25.110 Atherosclerotic heart disease of native coronary artery with unstable angina pectoris (principal); T82.855A Stenosis of coronary artery stent, initial encounter; Y83.8 Other surgical procedures as the cause of abnormal reaction of the patient, or of later complication, without mention of misadventure at the time of the procedure; J84.9 Interstitial pulmonary disease, unspecified; J47.9 Bronchiectasis, uncomplicated; Z72.0 Tobacco use; I10 Essential (primary) hypertension; F32.9 Major depressive disorder, single episode, unspecified; F41.9 Anxiety disorder, unspecified

== ENCOUNTER → 2019-02-12 12:50 | Outpatient (CLI) | payer MEDICAID ==
[~2019-02-12 12:50] MED LIST changes: +FENOFIBRATE160 MG PO; +FLOMAX0.4 MG PO; +LEVSIN/ANASP0.125 MG PO; +LISINOPRIL10 MG PO; +LOVASTATIN40 MG PO; +OMEPRAZOLE40 MG PO; +SINGULAIR10 MG PO; +TOPROL XL25 MG PO
== END | disposition home or self-care (01) ==
LOC: D.CT 12:50 → D.RT 15:00
PROVIDERS: ATTEND Internal Medicine Pulmonary Disease
DX: J84.9 Interstitial pulmonary disease, unspecified (principal); J47.9 Bronchiectasis, uncomplicated

== ENCOUNTER 2019-03-01 17:11 | Emergency (ER) | payer MEDICAID ==
[~2019-03-01] VITALS: Ht 172.7 cm; Wt 81.8 kg
[2019-03-01 17:17] VITALS: Ht 172.7 cm; Wt 81.8 kg
[2019-03-01 17:53] LABS: BASOPHILS 0.2 % (0-2); EOSINOPHILS 0.3 % (0-7); HEMATOCRIT 40.3 % (42.0-54.0); HEMOGLOBIN 14.4 g/dL (13.5-17.5); IMMATURE GRANULOCYTES 0.2 % (0-5); LYMPHOCYTES 15.1 % (15-50); MCH 30.5 pg (26.0-34.0); MCHC 35.7 g/dL (31.0-37.0); MCV 85.4 fL (80.0-100.0); MEAN PLATELET VOLUME 9.4 fL (7.4-10.4); MONOCYTES 6.9 % (2-11); NEUTROPHILS 77.3 % (40-80); RBC 4.72 10x6/uL (4.20-6.10); RDW 13.2 % (11.5-14.5); WBC 9.4 10x3/uL (4.8-10.8)
[2019-03-01 17:54] LABS: PLATELET COUNT 146 10x3/uL (130-400)
[2019-03-01 18:10] LABS: APTT 28.3 SECONDS (22.8-39.4); INR 1.07 (0.85-1.17); PROTIME 13.4 SECONDS (11.6-15.0)
[2019-03-01 18:16] LABS: ALBUMIN 3.9 g/dL (3.4-5.0); ALKALINE PHOSPHATASE 92 U/L (46-116); ALT (SGPT) 23 U/L (10-68); BILIRUBIN - TOTAL 0.57 mg/dL (0.2-1.3); CALC OSMOLALITY 276 mosm/kg (275-300); CALCIUM 8.8 mg/dL (8.5-10.1); CARBON DIOXIDE 26.9 mmol/L (21.0-32.0); CHLORIDE - SERUM 100 mmol/L (98-107); CREATININE - SERUM 0.9 mg/dL (0.6-1.3); GLUCOSE 118 mg/dL (74-106); POTASSIUM - SERUM 3.1 mmol/L (3.5-5.1); PROTEIN - SERUM 7.9 g/dL (6.4-8.2); SODIUM 139 mmol/L (136-145); UREA NITROGEN 6 mg/dL (7-18); eGFR NON AFRICAN AMERICAN > 90 mL/min (90-120)
[2019-03-01 18:27] LABS: CKMB 0.3 U/L (0.0-3.6); CREATINE KINASE 93 UL (21-232); MAGNESIUM - SERUM 1.4 mg/dL (1.8-2.4); TROPONIN-I < 0.017 ng/mL (0.000-0.060)
[2019-03-01] MEDS ORDERED: ISOSORBIDE MONO30 M1 PO (18:44)
[2019-03-01 19:22] VITALS: BP 124/86
== END 2019-03-01 19:22 | disposition home or self-care (01) ==
LOC: D.ER 17:11
PROVIDERS: Family Medicine
DX: R07.9 Chest pain, unspecified (principal); I10 Essential (primary) hypertension; I25.10 Atherosclerotic heart disease of native coronary artery without angina pectoris; E87.6 Hypokalemia

== ENCOUNTER → 2019-06-24 13:40 | Outpatient (CLI) | payer MEDICAID ==
[2019-03-01 17:17] VITALS: BMI 27.4
--- NOTE | ~2019-06-24 | EC ---
PATIENT:DAJA LAZARO DATE OF SERVICE: 06/24/19 SEX: M MEDICAL RECORD: [id number] DATE OF : 65 [facility] AGE OF PATIENT: 53 ADMISSION DATE: 06/24/19 REFERRING PHYSICIAN: INTERPRETING PHYSICIAN: PURNIMA LAKE MD ECHOCARDIOGRAM REPORT ECHO CHARGES 4 ECHO COMPLETE Date: 06/24/19 CLINICAL DIAGNOSIS: ANGINA/FATIGUE/SRINIVASAN H/O CAD/HTN ECHOCARDIOGRAPHIC MEASUREMENTS (adult normal given) AC root (d.<3.7cm) 3.7 cm LV Septum d (<1.2 cm> 1.3 cm Valve Excursion 2.4 cm LV Septum (systole) 2.2 cm Left Atria (s.<4.0cm> 4.1 cm LVPW d(<1.2cm) 1.4 cm RV (d.<2.3cm) 3.4 cm LVPW (sytole) 2.2 cm LV diastole(<5.6CM) 4.5 cm MV E-F(>70mm/sec) cm LV systole 2.3 cm LVOT Diameter 2.0 cm MV exc.(>10mm) cm Est.ejection fraction (50-75%) % DOPPLER: LVIT cm/sec A 87.0 cm/sec E 58.0 cm/sec LA cm/sec RVSP 16.0 mmHg LVOT 90.0 cm/sec AOP1/2T m/s Asc. Ao 91.0 cm/sec RVOT 53.0 cm/sec RA cm/sec PA 80.0 cm/sec AV Gradient Peak 3.3 mmHg AV Mean 1.7 mmHg AV Area 2.3 cm MV Gradient Peak 3.7 mmHg MV Mean 1.5 mmHg MV Area cm COMMENTS: OP - HC Review Coordinator: Concepcion CLEMENTEOE Hvac Service Technician: 1 Dr. Lake TAPE# PACS Pericardial Effusion N DATE OF SERVICE: 06/24/2019 FINDINGS: 1. Left ventricular chamber size is within normal limits. Left ventricular systolic function is normal. Overall ejection fraction estimated at 55%. 2. Left atrium is enlarged at 4.1 cm. Right atrium and right ventricular chamber sizes are within normal limits. 3. Valvular structures have normal structure and motion. 4. Doppler interrogation reveals no significant valvular insufficiency or stenosis and pulmonary systolic pressure is normal estimated at 16 mmHg. ECHOCARDIOGRAM REPORT [id number] DAJA LAZARO 5. No evidence of pericardial effusion or left ventricular thrombus. TRANSINT:[id number] Voice Confirmation ID: [id number] DOCUMENT ID: [id number] PURNIMA LAKE MD CC: [id number] DICTATION DATE: 06/25/191658 PSYCH SPECIALIST: 06/25/19 2347 DEP CLI 06/24/19 [facility] [address] [id number]
[~2019-06-24 13:40] MED LIST changes: +ISOSORBIDE MONO30 M1 PO
== END | disposition home or self-care (01) ==
LOC: D.HCCARDIO 06-21 09:30
PROVIDERS: ATTEND Internal Medicine Interventional Cardiology
DX: I25.110 Atherosclerotic heart disease of native coronary artery with unstable angina pectoris (principal); R06.00 Dyspnea, unspecified

== ENCOUNTER → 2019-07-12 09:13 | Outpatient (CLI) | payer MEDICAID ==
[2019-03-01 17:17] VITALS: BMI 27.4
--- NOTE | 2019-07-16 10:47 | ST ---
PATIENT:DAJA LAZARO MEDICAL RECORD: [id number] SEX: M LOCATION:[facility] ORDER #: ADMISSION DATE: 07/12/19 AGE OF PATIENT: 53 REFERRING PHYSICIAN: INTERPRETING PHYSICIAN: PURNIMA CARTER MD DATE OF SERVICE: 07/12/2019 Nuclear Stress Test INDICATIONS: Angina and coronary artery disease, shortness of breath, hypertension, hyperlipidemia. He was exercised on standard Lexiscan protocol where 31 mCi of sestamibi injected at peak stress, 10 mCi were used previously for rest images. FINDINGS: Gated SPECT reveals preserved ejection fraction 63% with good wall motioning and thickening and brightening throughout all segments. SPECT Imaging: Cardiolite was used as myocardial perfusion agent. There is reversibility anteriorly and laterally. This includes the basal, mid, apical anterior segments and basal lateral and mid lateral segments. The degree of reversibility is mild to moderate. The amount of myocardium involved is large. OVERALL IMPRESSION: This is an intermediate- to high-risk nuclear stress test with a large amount of myocardium at risk showing reversible ischemia anteriorly and laterally suggestive of multivessel coronary artery disease. TRANSINT:[id number] Voice Confirmation ID: [id number] DOCUMENT ID: [id number] PURNIMA CARTER MD at 1047 CC: TIMOTHY BECKER MD [id number] DICTATION DATE: 07/13/19 1202 CRUSHER SETTER: 07/14/19 0028 DEP CLI 07/12/19 [facility] [address] [place] [address]
== END | disposition home or self-care (01) ==
LOC: D.HCCARDIO 09:13
PROVIDERS: ATTEND Internal Medicine Interventional Cardiology
DX: I25.10 Atherosclerotic heart disease of native coronary artery without angina pectoris (principal)

== ENCOUNTER 2019-07-23 08:18 | Outpatient (CLI) | payer MEDICAID ==
[~2019-07-23] VITALS: Ht 172.7 cm; Wt 81.8 kg
--- NOTE | ~2019-07-23 | HEMODYNAMI ---
PATIENT:DAJA LAZARO MEDICAL RECORD: [id number] : 65 LOCATION:[facility] ADMISSION DATE: 07/23/19 Generatedon:07/23/201913:05 Patient name: DAJA LAZARO Patient #: [id number] N: [id number] : 1965 Date of study: 07/23/2019 Page: Of Hemodynamic Procedure Report Patient Data Patient Demographics Procedure consent was obtained First Name: DAJA Gender: Male Last Name: TEJAS : 1965 Middle Initial: E Age: 53 year(s) Patient #: [id number] Race: SSN: [id number] Additional ID: [id number] Contact details Address: [address] [place] [address] [facility] [place] [facility] Zip code: [address] Past Medical History Performed procedures and imaging results Date Procedure Procedure Results Comments 07/12/2019 Stress testing Indeterminant with SPECT MPI Allergies: No known allergies Admission Admission Data Admission Date: 07/23/2019 Admission Time: 8:18 Arrival Date: 07/23/2019 Arrival Time: 0:00 Admit Source: Other Insurance Payor: Private health insurance [facility] #: [id number] Height (in.): 68 BSA: 1.95 (m2) Height (cm.): 172.72 BMI: 27.15 (kg/m2) Weight (lbs.): 178.58 Weight (kg.): 81 Lab Results Lab Result Date: 07/23/2019 Lab Result Time: 9:40 Biochemistry Name Units Result Min Max BUN mg/dl 6 -*(----)-- 7 18 Creatinine mg/dl 1 --(--*-)-- 0.6 1.3 CBC Name Units Result Min Max Hematocrit % 39 *-(----)-- 42 54 Hemoglobin g/dl 14 --(*---)-- 13.5 17.5 Procedure Procedure Types Cath Procedure Diagnostic Procedure [facility] w/Coronaries PCI Procedure Coronary Stent Coronary Stent Initial Procedure Description Procedure Date Procedure Date: 07/23/2019 Procedure Start Time: 12:46 Procedure End Time: 13:02 Procedure Staff Name Function Jesus Lake MD Performing Physician Marizol Nguyen RT Monitor [place] RT Scrub Carlos Irving RN Nurse Procedure Data Cath Procedure Fluoroscopy Diagnostic fluoroscopy Total fluoroscopy Time: 3.2 time: 3.2 min min Diagnostic fluoroscopy Total fluoroscopy dose: 927 dose: 927 mGy mGy Contrast Material Contrast Material Type Amount (ml) Isovue 300 80 Entry Location Entry Primary Successful Side Size Upsize Upsize Entry Closure Succes sful Closure Location (Fr) 1 (Fr) 2 (Fr) Remarks Device Remarks Femoral Left 5 Fr 6 Fr Exoseal artery Short Estimated blood loss: 10 ml Diagnostic catheters Device Type Used For End Catheter Placement MULTIPACK Pigtail 5 Fr Procedure catheter MULTIPACK JL 4.0 5Fr Procedure catheter MULTIPACK 3DRC 5Fr Procedure catheter Procedure Complications No complications Procedure Medications Medication Administration Route Dosage 0.9% NaCl I.V. 100 ml/hr Oxygen etCO2 Nasal cannula 2 l/min Heparin Flush Bag added to field 2 bags (1000units/500ml NS) Lidocaine 2% added to field 20 Versed I.V. 2 mg Fentanyl I.V. 100 mcg Versed I.V. 1 mg Fentanyl I.V. 50 mcg Heparin Bolus I.V. 4000 units Plavix P.O. 75 mg Hemodynamics Rest BSA: 1.95 (m2) HGB: 14 (g/dl) O2 Consumption: Estimated: 231.37 (ml/min) O2 Cons umption indexed: Estimated:118.65 (ml/min/m) Heart Rate: 69 (bpm) Pressure Samples Time Site Value (mmHg) Purpose Heart Use Rate(bpm) 12:47 LV 249/99,108 Snapshot 74 Snapshots Pre Cath Intra NCS Post Cath Vital Signs Time Heart Resp SPO2 etCO2 NIBP (mmHg) Rhythm Pain Sedation Rate (ipm) (%) (mmHg) Status Level (bpm) 12:36:05 65 13 97 27 141/101(118) NSR 0 (11) 10(A) , No pain 12:40:19 66 10 97 29.2 152/89(122) NSR 0 (11) 10(A) , No pain 12:44:35 66 11 97 29.2 132/87(115) NSR 0 (11) 10(A) , No pain 12:48:42 74 19 96 3.7 129/92(113) NSR 0 (11) 10(A) , No pain 12:52:53 72 19 96 0 133/79(113) NSR 0 (11) 9(A) , No pain 12:56:56 75 19 96 3 114/86(111) NSR 0 (11) 9(A) , No pain 13:01:00 77 18 97 0 105/81(95) NSR 0 (11) 10(A) , No pain Medications Time Medication Route Dose Verified Delivered Reason Notes Effectiveness by by 12:28:50 0.9% NaCl I.V. 100 Carlos Carlos Per physician ml/hr Maria Fernanda Irving RN RN 12:29:00 Oxygen etCO2 2 Carlos Carlos for low 02 sats Nasal l/min Maria Fernanda Irving cannula RN RN 12:29:12 Heparin Flush added 2 Carlos Carlos used for Bag to bags Maria Fernanda Irving procedure (1000units/500ml RN RN NS) 12:29:25 Lidocaine 2% added 20ml Carlos Carlos for local to vial Maria Fernanda Irving anesthetic RN RN 12:42:44 Versed I.V. 2 mg Carlos Carlos for sedation Maria Fernanda Irving RN RN 12:42:55 Fentanyl I.V. 100 Carlos Carlos for sedation mcg Maria Fernanda Irving RN RN 12:45:55 Versed I.V. 1 mg Carlos Carlos for sedation Maria Fernanda Irving RN RN 12:46:05 Fentanyl I.V. 50 Carlos Carlos for sedation mcg Maria Fernanda Irving RN RN 12:53:28 Heparin Bolus I.V. 4000 Carlos Carlos for units Maria Fernanda Irving anticoagulation RN RN 13:02:15 Plavix P.O. 75 mg Carlos Carlos for Maria Fernanda Irving antiplatelet RN RN therapy Procedure Log Time Note 12:00:39 Carlos Irving RN sent for patient. Start room use. 12:12:57 Informed consent obtained and on chart 12:16:33 Diagnostic Cath Status : Elective 12:17:54 Admit Source: Other 12:17:56 Patient Weight : 178.58 lbs 12:17:59 Patient Height : 68 inches 12:18:05 Insurance Payor : Private health insurance 12:18:24 Arrival Date: 07/23/2019 12:00:00 AM 12:18:31 ACC Patient presents with Unstable Angina CCS Anginal Class 4--Inability to carry out any physical activity w/o angina. Angina may occur at rest. 12:18:36 ACCPatient has been prescribed/administered the following anti-anginal medication within the last 2 weeks: Beta Jerome, Long-Acting Nitrates, Ranexa (Ranolizine) 12:18:38 Procedure Status Elective Heart Cath (OP). 12:18:43 Time tracking: Regular hours (M-F 7:00 - 5:00) 12:18:47 Plan of Care:Hemodynamics will remain stable., Cardiac rhythm will remain stable., Comfort level will be maintained., Respiratory function will remain adequate., Patient/ family verbilizes understanding of procedure., Procedure tolerated without complication., Recovers from procedure without complications.. 12:18:51 Patient received from Pre/Post Procedure Room to [facility] 2 Alert and oriented. Tansferred to table in Supine position. 12:18:53 Warm blankets applied, and rebecca hugger turned on for patient comfort. 12:18:53 Correct patient and procedure confirmed by team. 12:18:55 ECG and BP/O2 sat monitors applied to patient. 12:28:33 H&P Date Dictated: 07/06/2019 Within 30 days and on chart., H&P Addendum completed by physician on day of procedure. (MUST COMPLETE FOR ALL OUTPATIENTS). 12:28:38 Vital chart was started 12:28:41 Baseline sample Acquired. 12:28:45 Rhythm: sinus rhythm 12:28:46 Full Disclosure recording started 12:28:47 Pre-procedure instructions explained to patient. 12:28:47 Pre-op teaching completed and patient verbalized understanding. 12:28:48 Family in waiting room. 12:28:49 Patient NPO since Midnight. 12:28:50 0.9% NaCl 100 ml/hr I.V. was administered by Carlos Irving RN; Per physician; 12:28:53 Patient allergic to No known allergies 12:28:55 Is the patient allergic to Iodine/contrast media? No. 12:29:00 Oxygen 2 l/min etCO2 Nasal cannula was administered by Carlos Lorigan RN; for low 02 sats; 12:29:12 Heparin Flush Bag (1000units/500ml NS) 2 bags added to field was administered by Carlos Irving RN; used for procedure; 12:29:22 Is patient on blood thinner?Yes 12::25 Lidocaine 2% 20ml vial added to field was administered by Carlos Irving RN; for local anesthetic; 12::25 ACC The patient was administered the following blood thiners within the last 24 hours: ACCAspirin, ACCPlavix 12:29:28 Patient diabetic? No. 12:29:30 Previous problem with sedation/anesthesia? No ? 12:29:32 Snore? No 12:29:32 Sleep apnea? No 12:29:33 Deviated septum? No 12:29:34 Opens mouth fully? Yes 12:29:35 Sticks out tongue? Yes 12:29:38 Airway obstruction? Yes COPD 12:29:40 Dentures? No ? 12:29:43 Pre procedure: right dorsailis pedis pulse Doppler 12:30:19 Patient pain scale 7/10 BACK AND HEMORRHOID. 12:30:52 IV patent on arrival in left forearm with 0.9% NaCl at [facility]. 12:31:39 Lab Result : BUN 6 mg/dl 12:31:39 Lab Result : Creatinine 1 mg/dl 12:31:39 Lab Result : Hemoglobin 14 g/dl 12:31:39 Lab Result : Hematocrit 39 % 12:31:42 Lab results completed and on chart. 12:31:44 Left groin area was prepped with chlora-prep and draped in sterile fashion 12:31:45 Alarms reviewed by R. N. 12:31:45 Sharps counted by scrub and verified by R.N. 12:31:48 Use device set Femoral Dx 12:31:48 ACIST Syringe (90930) opened to sterile field. 12:31:49 Bag Decanter (2002) opened to sterile field. 12:31:49 Medline Cath Pack ([id number]) opened to sterile field. 12:31:50 ACIST Hand Control (87654) opened to sterile field. 12:31:50 ACIST Manifold (83831) opened to sterile field. 12:31:51 DIAGNOSTIC Multipack 5Fr catheter set ([id number]) opened to sterile field. 12:31:53 EXOSEAL 5Fr (EX500) opened to sterile field. 12:31:53 SHEATH 5FR Charlotte (GWO006) opened to sterile field. 12:32:12 EMERALD Guide Wire (223-882) opened to sterile field. 12:32:13 Tegaderm 4 x 4 (1626W) opened to sterile field. 12:42:03 Physician arrived 12:42:04 --------ALL STOP TIME OUT------ 12:42:04 Final Timeout: patient, procedure, and site verified with staff and physician. All members of the team are in agreement. 12:42:06 Left groin site verified by team. 12:42:09 Fire Safety Assessment: A--An alcohol-based skin anteseptic being used preoperatively., C--Open oxygen or nitrous oxide is being used., D--An ESU, laser, or fiber-optic light is being used. 12:42:37 Physical assessment completed. ASA score P 2 - A patient with mild systemic disease as per Jesus Lake MD. 12:42:39 2) 60-89 Mildly reduced kidney function, and other findings (as for stage 1) point to kidney disease. 12:42:41 Maximum allowable contrast dose (3.7 X eGFR X 0.75)230 ml. 12:42:44 Versed 2 mg I.V. was administered by Carlos Irving RN; for sedation; 12:42:44 Sedation plan: IV Moderate Sedation Medication:Versed, Fentanyl 12:42:55 Fentanyl 100 mcg I.V. was administered by Carlos rIving RN; for sedation; 12:45:55 Versed 1 mg I.V. was administered by Carlos Irving RN; for sedation; 12:46:03 Procedure started. 12:46:05 Fentanyl 50 mcg I.V. was administered by Carlos Irving RN; for sedation; 12:46:05 Zero performed for pressure channel P1 12:46:13 Local anesthetic to left femerol artery with Lidocaine 2% by Jesus Lake MD.INITIAL ACCESS ONLY 12:46:20 A 5 Fr sheath was inserted into the Left Femoral artery 12:47:46 A MULTIPACK Pigtail 5 Fr catheter was advanced over the wire and used for Procedure. 12:47:58 LV gram done using JONES 12:48:00 Injector settings: Ml/sec: 10, Volume: 20, 12:48:01 LV hemodynamics recorded. 12:48:05 EF : 60 % 12:48:09 Catheter exchanged over wire. 12:48:14 A MULTIPACK JL 4.0 5Fr catheter was advanced over the wire and used for Procedure. 12:48:16 Zero performed for pressure channel P1 12:49:25 LCA angiography performed. 12:49:26 Catheter exchanged over wire. 12:49:29 A MULTIPACK 3DRC 5Fr catheter was advanced over the wire and used for Procedure. 12:49:41 SHEATH 6FR Charlotte (UBE860) opened to sterile field. 12:49:42 INFLATOR Merit BasixCompak (JR0211) opened to sterile field. 12:49:53 CHOICE PT Extra Support 182cm wire ([id number]) opened to sterile field. 12:49:59 RCA angiography performed. 12:50:20 Catheter removed. 12:50:26 GUIDE 6FR XBLAD 3.5 catheter ([id number]) opened to sterile field. 12:50:33 ACCDominant side:Co-Dominant 12:50:35 Sheath upsized to a 6 Fr Short. 12:51:42 6 Fr XBLAD 3.5 guide catheter was inserted over the wire 12:52:26 CHOICE PT ES wire advanced. 12:52:56 ACC Pre-intervention RENATO Flow is 3. 12:53:12 Pre PCI Site: Hopi Diag1 has 90% stenosis. 12:53:16 Wire advanced across lesion. 12:53:21 Inflate balloon Inflation number: 1 A EUPHORA 2.5 x 12 Balloon ([id number]) was prepped and advanced across the 1st Diag , then inflated to 15 CHARLY for 0:10 (min:sec) . 12:53:28 Heparin Bolus 4000 units I.V. was administered by Carlos Irving RN; for anticoagulation; 12:55:10 Balloon removed over the wire. 12:55:50 Place stent Inflation Number: 2 A COBRA RX 2.5 X 15 Stent was prepped and advanced across the 1st Diag . The stent was deployed at 11 CHARLY for 0:10 (min:sec) . 12:55:56 Stent catheter was removed intact over wire. 12:56:03 Post PCI Site: Hopi dLAD has 0% stenosis. 12:56:07 ACC Post-intervention RENATO Flow is 3. 12:56:09 Stent catheter was removed intact over wire. 12:56:10 Wire removed. 12:56:13 Guide catheter removed. 12:56:19 EXOSEAL 6Fr (EX600) opened to sterile field. 12:56:28 Sheath removed intact; hemostasis achieved with Exoseal to the Left Femoral artery. 12:56:30 Procedure ended.(Physican Out) 12:57:31 Fluoroscopy time 03.20 minutes. 12:57:35 Flurop Dose total: 927 12:57:35 Fluoroscopy dose: 927 mGy 12:58:08 Dose Area Product 46292 mGy/cm. 12:59:31 Contrast amount:Isovue 300 80ml. 12:59:32 Maximum allowable dose exceeded? No. 12:59:33 Sharps counted by scrub and verified by R.N. 12:59:34 Insertion/operative site no bleeding no hematoma. 12:59:36 Post-op/insertion site Right Femoral artery dressed using a 4 x 4 and Tegaderm. 12:59:41 Post right femoral artery:stable, soft, clean and dry 12:59:49 Post Procedure Pulses reassessed and unchanged 12:59:53 Post-procedure physical assessment completed. ASA score P 2 - A patient with mild systemic disease as per Jesus Lake MD. 12:59:54 Post procedure rhythm: unchanged. 12:59:57 Estimated blood loss: 10 ml 12:59:58 Post procedure instruction explained to patient.Patient verbalizes understanding. 12:59:58 Patient needs reinforcement of post procedure teaching. 13:00:21 Procedure type changed to Cath procedure, Diagnostic procedure, LHC, LHC w/Coronaries, PCI procedure, Coronary Stent, Coronary Stent Initial 13:01:33 Procedure and supply charges have been captured, reviewed, submitted and are correct. 13:01:35 Procedure Complication : No complications 13:02:13 Vital chart was stopped 13:02:13 See physician's report for complete and final results. 13:02:14 Report given to Pre/Post Procedure Room. 13:02:15 Plavix 75 mg P.O. was administered by Carlos Irving RN; for antiplatelet therapy; 13:02:17 Patient transfered to Pre/Post Procedure Room with Stretcher. 13:02:18 Procedure ended. 13:02:18 Full Disclosure recording stopped 13:02:29 ACC-PCI Only Patient was given prescriptions, or instructed by Jesus Lake MD to start/continue the following medications upon discharge: Aspirin, Plavix 13:02:30 End room use (Document Last) Intervention Summary Intervention Notes Time ActionType Lesion and Equipment Action# Pressure Duration Attributes Used 12:53:21 Inflate 1st Diag EUPHORA 1 15 00:10 balloon 2.5 x 12 Balloon ([id number]) 12:55:50 Place stent 1st Diag COBRA RX 2 11 00:10 2.5 X 15 Stent Device Usage Item Name Manufacture Quantity Catalog Number Hospital Part Current Minimal Lot# / Charge Number Stock Stock Serial# Code ACIST Syringe Acist 1 67717 942313 413186 107069 20 (38209) Medical Systems Inc Bag Decanter Microtek 1 2001S 791264 96872 367749 5 (2001S) Medical Inc. Medline Cath Medline 1 [id number] 586871 20087 372709 5 Pack ([id number]) ACIST Hand Acist 1 41941 683891 628696 834522 5 Control Medical (94227) Systems Inc ACIST Manifold Acist 1 67731 201586 730703 068833 5 (91948) Medical Systems Inc DIAGNOSTIC Cardinal 1 RR8935 910682 00471 706199 30 Multipack 5Fr Health catheter set (JK3839) EXOSEAL 5Fr Cardinal 1 EX500 386417 672404 465736 10 (EX500) Health SHEATH 5FR Terumo 1 FFA133 579823 751777 128549 5 Charlotte (ABK950) EMERALD Guide Cardinal 1 502-455 126295 353413 262300 5 Wire (502-455) Health Tegaderm 4 x 4 3M 1 1626W 100674 307497 486753 5 (1626W) MULTIPACK Cardinal 1 017896 5 Pigtail 5 Fr Health catheter MULTIPACK JL Cardinal 1 528571 5 4.0 5Fr Health catheter MULTIPACK 3DRC Cardinal 1 460989 5 5Fr catheter Health SHEATH 6FR Terumo 1 WKU847 121084 877043 395442 40 Charlotte (JSH719) INFLATOR Merit Merit 1 EB6150 592651 973959 094217 15 [facility] (AQ3616) CHOICE PT Pingree 1 [id number] 401353 090242 331361 5 Extra Support Scientific 182cm wire ([id number]) GUIDE 6FR Cardinal 1 [id number] 171346 142724 013478 10 XBLAD 3.5 Health catheter (73418754) EUPHORA 2.5 x Medtronic 1 [id number] 229578 718394 638351 5 [id number] 12 Balloon (HSK2594G) COBRA RX 2.5 X Celonova 1 281-14-39184 658868 536030458 5190001 8 [id number] 15 stent Biosciences (613-23-76143) EXOSEAL 6Fr Cardinal 1 EX600 273430 971449 713862 10 (EX600) Health Signature Audit Summit Stage Time Signature Unsigned Intra-Procedure 07/23/2019 [place] 1:05:00 PM RT(R) Signatures Performing Physician : Signature : Jesus Lake MD Date : Time : Monitor : Marizol Nguyen RT Signature : Date : Time : Nurse : Carlos Irving Signature : RN Date : Time : [facility] [address] [place] [address]
[2019-07-23 09:38] VITALS: BP 158/87; Ht 172.7 cm; Wt 81.8 kg
[2019-07-23 09:47] LABS: BASOPHILS 0.1 % (0-2); EOSINOPHILS 0.8 % (0-7); IMMATURE GRANULOCYTES 0.2 % (0-5); LYMPHOCYTES 30.3 % (15-50); MCH 30.8 pg (26.0-34.0); MCHC 35.9 g/dL (31.0-37.0); MCV 85.7 fL (80.0-100.0); MEAN PLATELET VOLUME 9.2 fL (7.4-10.4); MONOCYTES 6.6 % (2-11); PLATELET COUNT 166 10x3/uL (130-400); RBC 4.55 10x6/uL (4.20-6.10); WBC 8.5 10x3/uL (4.8-10.8)
[2019-07-23 10:01] LABS: ALT (SGPT) 23 U/L (10-68); CALC OSMOLALITY 278 mosm/kg (275-300); CALCIUM 9.4 mg/dL (8.5-10.1); CHLORIDE - SERUM 102 mmol/L (98-107); CHOL - HDL RATIO 5.5 ratio (2.3-4.9); CHOLESTEROL, TOTAL 164 mg/dL (0-200); GLUCOSE 96 mg/dL (74-106); HDL CHOLESTEROL 30 mg/dL (32-96); LDL CHOLESTEROL 87 mg/dL (0-100); LDL-HDL RATIO 2.9 ratio (1.5-3.5); POTASSIUM - SERUM 3.2 mmol/L (3.5-5.1); SODIUM 141 mmol/L (136-145); TRIGLYCERIDE 238 mg/dL (30-200); UREA NITROGEN 6 mg/dL (7-18); eGFR NON AFRICAN AMERICAN 83 mL/min (90-120)
--- NOTE | 2019-07-23 13:15 | NUR ---
PATIENT ARRIVED TO ROOM 5, PLACED ON CM. VSS ON 2L NC. LEFT GROIN DRESSING IS CDI, NO S/S OF BLEEDING OR HEMATOMA.
--- NOTE | 2019-07-23 13:30 | NUR ---
PATIENT RESTING, VSS ON 2L NC. LEFT GROIN DRESSING IS CDI, NO S/S OF BLEEDING OR HEMATOMA. NO C/O PAIN, NUMBNESS, OR TINGLING. FAMILY PRESENT AT BEDSIDE.
--- NOTE | 2019-07-23 14:00 | NUR ---
PATIENT AWAKE, GIVEN ICE CHIPS PER REQUEST. NO N/V. LEFT GROIN DRESSING IS CDI, NO S/S OF BLEEDING OR HEMATOMA. NO C/O PAIN, NUMBNESS, OR TINGLING. VSS ON 2L NC.
--- NOTE | 2019-07-23 14:30 | NUR ---
PATIENT AWAKE, EATING TURKEY SANDWICH. NO N/V. FAMILY PRESENT AT BEDSIDE. VSS ON 1L NC. LEFT GROIN DRESSING IS CDI, NO S/S OF BLEEDING OR HEMATOMA. PHYSICIAN AT BEDSIDE TO UPDATE PATIENT AND FAMILY.
--- NOTE | 2019-07-23 15:00 | NUR ---
PATIENT RESTING, VSS ON 1L NC. LEFT GROIN DRESSING IS CDI, NO S/S OF BLEEDING OR HEMATOMA. NO C/O PAIN, NUMBNESS, OR TINGLING. FAMILY PRESENT AT BEDSIDE. NO N/V. PHYSICIAN AT BEDSIDE TO UPDATE PATIENT.
--- NOTE | 2019-07-23 15:30 | NUR ---
PATIENT AWAKE, RESTING WITH EYES CLOSED. FAMILY PRESENT AT BEDSIDE, VSS ON ROOM AIR. LEFT GROIN DRESSING IS CDI, NO S/S OF BLEEDING OR HEMATOMA. NO C/O PAIN, NUMBNESS, OR TINGLING.
--- NOTE | 2019-07-23 16:00 | NUR ---
HEAD OF BED ELEVATED TO 60 DEGREES, LEFT GROIN DRESSING IS CDI, NO S/S OF BLEEDING OR HEMATOMA. PATIENT VOIDED WITHOUT DIFFICULTY. VSS ON ROOM AIR. NO C/O PAIN, NUMBNESS, OR TINGLING.
--- NOTE | 2019-07-23 16:15 | NUR ---
IV REMOVED, WRITTEN AND VERBAL DISCHARGE INSTRUCTIONS AND MEDICATION INSTRUCTIONS GIVEN TO PATIENT AND FAMILY, BOTH VOICE UNDERSTANDING. LEFT GROIN DRESSING IS CDI, NO S/S OF BLEEDING OR HEMATOMA. NO C/O PAIN, NUMBNESS, OR TINGLING. NO N/V.
--- NOTE | 2019-07-23 16:40 | NUR ---
PATIENT TRANSPORTED VIA WHEELCHAIR TO CAR WITH FAMILY DRIVING, ALL BELONGINGS WITH PATIENT.
--- NOTE | 2019-07-28 14:31 | OP ---
PATIENT NAME: DAJA LAZARO MEDICAL RECORD: [id number] :65 LOCATION:D.CAT ADMISSION DATE: SURGEON: PURNIMA CARTER MD DATE OF OPERATION: 07/23/2019 PROCEDURES: 1. PTCA stent LAD diagonal. 2. Left heart catheterization. 3. Selective coronary angiography. 4. Left ventriculogram. INDICATION: Angina, coronary artery disease, abnormal nuclear stress test. PROCEDURE IN DETAIL: After informed consent was obtained and after a detailed description of risks, benefits as well as alternative therapies, the patient elected to proceed with angiogram and angioplasty. The right femoral area was prepped and draped in normal sterile fashion. Right femoral artery was cannulated via modified Seldinger technique with placement of 6-Kyrgyz sheath. All catheters exchanged through this sheath. FINDINGS: The left ventriculogram was performed in standard 30-degree JONES view, reveals good cardiac wall motion, ejection fraction 60%. SELECTIVE CORONARY ANGIOGRAPHY: 1. Left main is with no significant angiographic disease. 2. Left anterior descending has previously placed stent that is widely patent. There is a relatively large diagonal system that has 90% stenosis that comes off in the previously stented area. This correlates with the perfusion defect on nuclear stress testing. 3. Left circumflex has mild irregularities, but no flow-limiting stenosis. 4. Right coronary artery has moderate irregularities, but no flow-limiting stenosis. SNAGGER STENT OF THE LAD DIAGONAL: The diagonal was addressed with a 2.5 x 15 mm Cobra stent. Result was 0% residual stenosis. OVERALL IMPRESSION: Successful percutaneous transluminal coronary angioplasty stent of the left anterior descending diagonal going from 90% initial stenosis to 0% residual. TRANSINT:[id number] Voice Confirmation ID: [id number] DOCUMENT ID: [id number] PURNIMA CARTER MD at 1431 CC: [id number] DICTATION DATE: 07/23/19 1300 PROJ MGR: 07/23/19 1315 DEP CLI 07/23/19 [place] [id number]
== END 2019-07-23 16:40 ==
LOC: D.CATH 08:18
PROVIDERS: ATTEND Internal Medicine Interventional Cardiology
DX: I25.119 Atherosclerotic heart disease of native coronary artery with unspecified angina pectoris (principal); R94.30 Abnormal result of cardiovascular function study, unspecified

== ENCOUNTER → 2019-09-22 15:00 | Outpatient (CLI) | payer OTHER ==
[2019-07-23 09:38] VITALS: BMI 27.4
[~2019-09-22 15:00] MED LIST changes: +NITROQUICK0.4 MG SL
== END | disposition home or self-care (01) ==
LOC: D.RT 15:00
PROVIDERS: ATTEND Pediatrics
DX: R06.00 Dyspnea, unspecified (principal); R05 Cough

== ENCOUNTER 2020-02-19 16:18 | Inpatient (IN) | payer MEDICAID ==
[~2020-02-19] VITALS: Ht 172.7 cm; Wt 86.2 kg
[~2020-02-19 16:18] MED LIST changes: +LEVOFLOXACIN500 MG PO; +PREDNISONE10 MG PO
[2020-02-19] MEDS ORDERED: [UNRECOGNIZED DRUG - OTHER] (16:30)
[2020-02-19] MEDS ORDERED: PHENERGAN25 M1 (16:31)
[2020-02-19] MEDS ORDERED: PLAVIX75 MG PO (16:31)
[2020-02-19] MEDS ORDERED: LEVAQUIN (16:33)
[2020-02-19] MEDS ORDERED: ZPAK (16:33)
[2020-02-19 17:20] LABS: BASOPHILS 0.4 % (0-2); EOSINOPHILS 1.5 % (0-7); HEMATOCRIT 41.7 % (42.0-54.0); HEMOGLOBIN 13.9 g/dL (13.5-17.5); IMMATURE GRANULOCYTES 0.2 % (0-5); LYMPHOCYTES 31.8 % (15-50); MCH 30.5 pg (26.0-34.0); MCHC 33.3 g/dL (31.0-37.0); MCV 91.4 fL (80.0-100.0); MEAN PLATELET VOLUME 9.6 fL (7.4-10.4); MONOCYTES 6.8 % (2-11); NEUTROPHILS 59.3 % (40-80); PLATELET COUNT 209 10x3/uL (130-400); RBC 4.56 10x6/uL (4.20-6.10); RDW 12.4 % (11.5-14.5); WBC 8.3 10x3/uL (4.8-10.8)
[2020-02-19 17:24] LABS: APTT 30.4 SECONDS (22.8-39.4); INR 1.04 (0.85-1.17); PROTIME 13.6 SECONDS (11.6-15.0)
[2020-02-19 17:34] LABS: CALC OSMOLALITY 277 mosm/kg (275-300); CALCIUM 9.3 mg/dL (8.5-10.1); CARBON DIOXIDE 25.2 mmol/L (21.0-32.0); CHLORIDE - SERUM 103 mmol/L (98-107); POTASSIUM - SERUM 3.1 mmol/L (3.5-5.1); SODIUM 140 mmol/L (136-145); UREA NITROGEN 6 mg/dL (7-18); eGFR NON AFRICAN AMERICAN 83 mL/min (90-120)
[2020-02-19 17:36] VITALS: BP 134/93
[2020-02-19 17:36] LABS: GLUCOSE 108 mg/dL (74-106)
--- NOTE | 2020-02-19 17:36 | NUR ---
PT PROVIDED WITH WARM BLANKET. COLOR WNL FOR RACE. NO DISTRESS NOTED. VSS. WILL CONTINUE TO MONITOR.
[2020-02-19 17:41] LABS: ALBUMIN 3.7 g/dL (3.4-5.0); ALKALINE PHOSPHATASE 119 U/L (30-120); ALT (SGPT) 17 U/L (10-68); BILIRUBIN - TOTAL 0.48 mg/dL (0.2-1.3); CKMB 0.3 U/L (0.0-3.6); CREATINE KINASE 113 UL (21-232); PRO BNP 48 pg/mL (0-125); PROTEIN - SERUM 7.3 g/dL (6.4-8.2); TROPONIN-I < 0.017 ng/mL (0.000-0.060)
[2020-02-19 17:57] LABS: C-REACTIVE PROTEIN 1.3 mg/dL (0.0-0.9)
[2020-02-19 18:04] LABS: D-DIMER-QUANTITATIVE 0.29 ug/mLFEU (0.20-0.54)
[2020-02-19 18:11] VITALS: BP 131/95
[2020-02-19 18:53] LABS: ERYTHROCYTE SEDIMENTATION RATE 27 mm/hr (0-20)
--- NOTE | 2020-02-19 20:02 | NUR ---
PT TRANSFERRED TO CT AT THIS TIME.
--- NOTE | 2020-02-19 20:21 | NUR ---
PT RETURNED FROM CT AT THIS TIME.
[2020-02-20 00:09] VITALS: BP 135/86; BMI 28.9
--- NOTE | 2020-02-20 01:20 | NUR ---
RECIEVED REPORT FROM JANE OTT IN ER. ARRIVED TO FLOOR ON STRETCHER. TRANSFERED SELF TO BED. ALERT AND ORIENTED X4. UP AD MYCHAL. IV TO LT AC WITH NS AT 100CC/HR. ASSESSMENT COMPLETED.
[2020-02-20 04:56] LABS: BASOPHILS 0.4 % (0-2); EOSINOPHILS 1.6 % (0-7); HEMATOCRIT 38.9 % (42.0-54.0); HEMOGLOBIN 12.6 g/dL (13.5-17.5); IMMATURE GRANULOCYTES 0.1 % (0-5); LYMPHOCYTES 32.5 % (15-50); MCH 29.9 pg (26.0-34.0); MCHC 32.4 g/dL (31.0-37.0); MCV 92.4 fL (80.0-100.0); MEAN PLATELET VOLUME 9.3 fL (7.4-10.4); MONOCYTES 7.6 % (2-11); NEUTROPHILS 57.8 % (40-80); PLATELET COUNT 184 10x3/uL (130-400); RBC 4.21 10x6/uL (4.20-6.10); RDW 12.5 % (11.5-14.5)
[2020-02-20 05:05] LABS: ALBUMIN 3.1 g/dL (3.4-5.0); ALKALINE PHOSPHATASE 101 U/L (30-120); ALT (SGPT) 16 U/L (10-68); BILIRUBIN - TOTAL 0.44 mg/dL (0.2-1.3); CALC OSMOLALITY 274 mosm/kg (275-300); CALCIUM 8.8 mg/dL (8.5-10.1); CARBON DIOXIDE 28.6 mmol/L (21.0-32.0); CHLORIDE - SERUM 105 mmol/L (98-107); CREATININE - SERUM 0.9 mg/dL (0.6-1.3); GLUCOSE 109 mg/dL (74-106); POTASSIUM - SERUM 3.5 mmol/L (3.5-5.1); PROTEIN - SERUM 6.3 g/dL (6.4-8.2); SODIUM 138 mmol/L (136-145); UREA NITROGEN 7 mg/dL (7-18); eGFR NON AFRICAN AMERICAN > 90 mL/min (90-120)
[2020-02-20 05:32] VITALS: BP 117/78
--- NOTE | 2020-02-20 07:00 | NUR ---
RECEIVED REPORT. ASSUMED CARE OF PATIENT. PATIENT REMAINS IN ISOLATION FOR POSSIBLE COVID-19.
[2020-02-20 08:09] VITALS: BP 143/72
--- NOTE | 2020-02-20 09:12 | NUR ---
INCENTIVE SPIROMETER PROVIDED AT THIS TIME AND INSTRUCTED PATIENT ON HOW TO USE. PATIENT VERBALIZED UNDERSTANDING OF THE DEVICE. CALL LIGHT WITHIN REACH. NO DISTRESS.
--- NOTE | 2020-02-20 11:52 | NUR ---
COVID-19 TEST COMPLETE AND TAKEN TO THE LAB AT THIS TIME.
[2020-02-20 12:16] VITALS: BP 130/79
--- NOTE | 2020-02-20 19:20 | NUR ---
RECEIVED REPORT, WILL ASSUME CARE OF PT, COMPLAINS OF PAIN, WILL GIVE NORCO ORDER, EXPLAIN WE NEEDED A UA, PROVIDED A URINAL, BED IS LOW, SRX2, CALL LIGHT IN REACH, WILL CONTINUE PLAN OF CARE
[2020-02-20 19:50] VITALS: BP 125/82
[2020-02-20 22:39] LABS: UDS - AMPHET NEGATIVE QUAL (NEGATIVE); UDS - BARB NEGATIVE QUAL (NEGATIVE); UDS - BENZO NEGATIVE QUAL (NEGATIVE); UDS - COCAINE NEGATIVE QUAL (NEGATIVE); UDS - OPIATE POSITIVE QUAL (NEGATIVE); UDS - PCP NEGATIVE QUAL (NEGATIVE); UDS - THC NEGATIVE QUAL (NEGATIVE)
--- NOTE | 2020-02-20 22:58 | NUR ---
I have reviewed this patient and I concur with the Shift Assessment completed by the Licensed Practical Nurse today this shift.
[2020-02-21 04:24] LABS: BASOPHILS 0 % (0-2); EOSINOPHILS 0.2 % (0-7); HEMATOCRIT 39.3 % (42.0-54.0); HEMOGLOBIN 12.8 g/dL (13.5-17.5); LYMPHOCYTES 13.1 % (15-50); MCH 29.8 pg (26.0-34.0); MCHC 32.6 g/dL (31.0-37.0); MCV 91.6 fL (80.0-100.0); MEAN PLATELET VOLUME 9.6 fL (7.4-10.4); MONOCYTES 0.7 % (2-11); PLATELET COUNT 204 10x3/uL (130-400); RBC 4.29 10x6/uL (4.20-6.10); RDW 12.1 % (11.5-14.5)
[2020-02-21 04:38] LABS: CALCIUM 8.7 mg/dL (8.5-10.1); CARBON DIOXIDE 26.8 mmol/L (21.0-32.0); CHLORIDE - SERUM 103 mmol/L (98-107); MAGNESIUM - SERUM 1.6 mg/dL (1.8-2.4); SODIUM 136 mmol/L (136-145); UREA NITROGEN 8 mg/dL (7-18); eGFR NON AFRICAN AMERICAN 83 mL/min (90-120)
[2020-02-21 04:44] LABS: CALC OSMOLALITY 272 mosm/kg (275-300); GLUCOSE 161 mg/dL (74-106); POTASSIUM - SERUM 4.1 mmol/L (3.5-5.1)
--- NOTE | 2020-02-21 07:32 | NUR ---
RECIEVED REPORT. PATIENT IS AWAKE AND ALERT, HE IS RESTING ON HIS BAKC IN BED AT THIS TIME. DENIES ANY NEEDS.
[2020-02-21 08:47] VITALS: BP 129/86
--- NOTE | 2020-02-21 11:11 | NUR ---
MIRANDA LAZARO [phone] SISTER WANTS CONTACTED IF ANY NEED
--- NOTE | 2020-02-21 11:24 | NUR ---
CALLED [facility]Y KRAFT TO FIND OUT WHAT THE PLAN IS FOR THIS PATIENT. HE WAS MOVED FROM THE BACK AND OUT OF ISOLATION YESTERDAY . HE HAS A COVID 19 TEST PENDING, THAT WAS ORDERED IN THE ER. THE DOCTORS ON HIS CASE NOW AGREE THAT HE DOES NOT HAVE COVID 19 AND THE TEST SHOULD NEVER HAVE BEEN ORDERED. DR MARSHALL AND DR ABEL BOTH AGREE THAT THE PATIENT DOES NOT HAVE COVID 19 AND THAT HE SHOULD NOT HAVE BEEN TESTED FOR IT. HE WAS PULLED OUT OF ISOLATION YESTERDAY BECAUSE OF THIS. THE TEST HAD ALREADY BEEN SENT TO THE FACILITY TO BE PROCESSED, AND SO BECAUSE IT WAS ALREADY SENT OUT IT CAN NOT BE CANCELLED. THE PATIENT IS NOT IN ISOLATION AND DR MARSHALL, DR ABEL, AND HARRY KRAFT WITH INFECTION CONTROL IS AWARE.
[2020-02-21 12:01] VITALS: Ht 172.7 cm; Wt 86.2 kg
--- NOTE | 2020-02-21 16:44 | MORECARE ---
CASE MANAGEMENT DISCHARGE SUMMARY PATIENT: DAJA LAZARO UNIT: [id number] ADM DATE: 02/19/20 AGE: 54 : 65 SEX: M ROOM/BED: D.2102 AUTHOR: JOANN,DOC PHYSICIAN: REFERRING PHYSICIAN: UZMA SHIN MD DATE OF SERVICE: 02/21/20 Discharge Plan Patient Name: DAJA LAZARO Facility: [facility]:[place] : 1965 Planned Disposition: Home Anticipated Discharge Date: Discharge Date: Expected LOS: Initial Reviewer: [email or web address] Initial Review Date: 02/21/2020 Generated: 02/21/20 5:43 pm Comments DCP- Discharge Planning Updated by [email or web address]: Cristobal Brumfield on 02/21/20 3:[address] Patient Name: DAJA LAZARO Admission Status: ER Accout number: [id number] Admission Date: 02-19-2020 : 1965 Admission Diagnosis:PNEUMONIA, UNSPECIFIED ORGANISM Attending: DAVID Current LOS: 2 Anticipated DC Date: Planned Disposition: Home Primary [place]: [place] [employer]IONS RAM[place] Discharge Planning Comments: CM MET WITH PT IN ROOM TO DISCUSS DISCHARGE PLANNING AND NEEDS. PT REPORTS LIVING AT HOME INDEPENDENTLY AND ALONE. PT HAS NO MEDICAL EQUIPMENT AND NO OUTSIDE SERVICES ASSISTING IN THE HOME. CM DISCUSSED AVAILABILITY OF HOME HEALTH, REHAB SERVICES AND MEDICAL EQUIPMENT. PT DENIES DISCHARGE NEEDS; PT STATES HE WOULD CONSIDER HOME HEALTH IF IT IS NEEDED, REPORTS HIS NEIGHBOR WILL PICK HIM UP FOR DISCHARGE HOME PT PLANS TO DISCHARGE HOME ALONE. NEIGHBOR TO TRANSPORT HOME. PT WILL CONSIDER HOME HEALTH IF IT IS NEEDED. CM TO FOLLOW AND ASSIST IF NEEDED. Admin Assistant: Cristobal Brumfield DCPIA - Discharge Planning Initial Assessment Updated by [email or web address]: Cristobal Brumfield on 02/21/20 4:39 pm * Is the patient Alert and Oriented? Yes * How many steps to enter\exit or inside your home? * PCP DR. BECKER [place] * [facility] [address] * Preadmission Environment Home Alone * ADLs Independent * Equipment None * Other Equipment NO MEDICAL EQUIPMENT PROVIDER PREFERENCE * List name and contact numbers for known caregivers / representatives who currently or will assist patient after discharge: ELIZA BILLINGS, * Verbal permission to speak to the caregivers and representatives has been obtained from the patient. N/A * Community resources currently utilized None * Please name any agencies selected above. NONE * Additional services required to return to the preadmission environment? No * Can the patient safely return to the preadmission environment? Yes * Has this patient been hospitalized within the prior 30 days at any hospital? No Patient Name: DAJA LAZARO Page 12473 at 1644 All edits/amendments must be made on the electronic document DICTATION DATE: 02/21/201642 LABORER GOLD LEAF: BRITTNEE 02/21/201642 RPT#: [id number] DC DATE: STATUS: ADM IN [facility] [address] [place] [address] END OF REPORT
--- NOTE | 2020-02-21 19:11 | NUR ---
ASSISTED PT WITH NEEDS AND MADE SURE CALL LIGHT WAS IN REWACH BED IS LOW AND LOCKED
[2020-02-21 20:43] VITALS: BP 117/77
[2020-02-22 03:29] VITALS: BP 126/83
[2020-02-22 05:30] LABS: BASOPHILS 0 % (0-2); EOSINOPHILS 0 % (0-7); HEMATOCRIT 37.3 % (42.0-54.0); HEMOGLOBIN 11.9 g/dL (13.5-17.5); IMMATURE GRANULOCYTES 0.3 % (0-5); LYMPHOCYTES 7.1 % (15-50); MCH 29.7 pg (26.0-34.0); MCHC 31.9 g/dL (31.0-37.0); MEAN PLATELET VOLUME 9.8 fL (7.4-10.4); MONOCYTES 1.6 % (2-11); PLATELET COUNT 232 10x3/uL (130-400); RBC 4.01 10x6/uL (4.20-6.10); RDW 12.4 % (11.5-14.5)
[2020-02-22 05:44] LABS: WBC 18.4 10x3/uL (4.8-10.8)
[2020-02-22 05:53] LABS: CALCIUM 8.6 mg/dL (8.5-10.1); CARBON DIOXIDE 25.7 mmol/L (21.0-32.0); CHLORIDE - SERUM 105 mmol/L (98-107); CREATININE - SERUM 0.9 mg/dL (0.6-1.3); GLUCOSE 169 mg/dL (74-106); MAGNESIUM - SERUM 1.6 mg/dL (1.8-2.4); SODIUM 140 mmol/L (136-145); eGFR NON AFRICAN AMERICAN > 90 mL/min (90-120)
[2020-02-22 05:58] LABS: CALC OSMOLALITY 281 mosm/kg (275-300); POTASSIUM - SERUM 3.4 mmol/L (3.5-5.1); UREA NITROGEN 11 mg/dL (7-18)
--- NOTE | 2020-02-22 07:25 | NUR ---
REPORT RECEIVED FROM DIRECTOR AMBULATORY AND PATIENT CARE ASSUMED. PATIENT LAYING IN BED ON RT SIDE WITH EYES CLOSED AND BREATHING EVENLY. WILL CONTINUE WITH PLAN OF CARE. SR UP X 2 BED IN LOW POSITION AND CALL LIGHT IN REACH.
[2020-02-22 09:42] VITALS: BP 126/78
[2020-02-22] MEDS ORDERED: DOXYCYCLINE HY100 M2 PO (13:28)
--- NOTE | 2020-02-22 15:00 | NUR ---
SMOKING CESSATION HANDOUT GIVEN TO PRIMARY NURSE SHRUTHI BERMUDEZ RN TO HAVE PATIENT FILL OUT FOR DISCHARGE.
--- NOTE | 2020-02-22 16:36 | NUR ---
ALERT AND ORIENTED X4. SITTING UP IN BED. DISCHARGE INSTRUCTIONS GIVEN VERBALLY AND WRITTEN. DISCHARGE PAPERS SIGNED ON CHART. DC LT AC IV TIP INTACT. SPOUSE CALLED FOR RIDE. CONTINUE PLAN OF CARE AND SAFETY PRECAUTIONS.
--- NOTE | 2020-02-24 08:18 | MORECARE ---
CASE MANAGEMENT DISCHARGE SUMMARY PATIENT: DAJA LAZARO UNIT: [id number] ADM DATE: 02/19/20 AGE: 54 : 65 SEX: M ROOM/BED: D.2102 AUTHOR: JOANN,DOC PHYSICIAN: REFERRING PHYSICIAN: UZMA SHIN MD DATE OF SERVICE: 02/24/20 Discharge Plan Patient Name: DAJA LAZARO Facility: [facility]:[place] : 1965 Planned Disposition: Home Anticipated Discharge Date: 02/22/20 Discharge Date: 02/22/2020 Expected LOS: 3 Initial Reviewer: MARC Initial Review Date: 02/21/2020 Generated: 02/24/20 9:17 am DCP- Discharge Planning Updated by [email or web address]: Cristobal Brumfield on 02/21/20 3:[address] Patient Name: DAJA LAZARO Admission Status: ER Accout number: [id number] Admission Date: 02-19-2020 : 1965 Admission Diagnosis:PNEUMONIA, UNSPECIFIED ORGANISM Attending: DAVID Current LOS: 2 Anticipated DC Date: Planned Disposition: Home Primary Insurance: [place] PRIVATE OPTIONS RAMÍREZ Discharge Planning Comments: CM MET WITH PT IN ROOM TO DISCUSS DISCHARGE PLANNING AND NEEDS. PT REPORTS LIVING AT HOME INDEPENDENTLY AND ALONE. PT HAS NO MEDICAL EQUIPMENT AND NO OUTSIDE SERVICES ASSISTING IN THE HOME. CM DISCUSSED AVAILABILITY OF HOME HEALTH, REHAB SERVICES AND MEDICAL EQUIPMENT. PT DENIES DISCHARGE NEEDS; PT STATES HE WOULD CONSIDER HOME HEALTH IF IT IS NEEDED, REPORTS HIS NEIGHBOR WILL PICK HIM UP FOR DISCHARGE HOME PT PLANS TO DISCHARGE HOME ALONE. NEIGHBOR TO TRANSPORT HOME. PT WILL CONSIDER HOME HEALTH IF IT IS NEEDED. CM TO FOLLOW AND ASSIST IF NEEDED. Felt Hat Steamer: Cristobal Brumfield DCPIA - Discharge Planning Initial Assessment Updated by [email or web address]: Cristobal Brumfield on 02/21/20 4:39 pm * Is the patient Alert and Oriented? Yes * How many steps to enter\exit or inside your home? * PCP DR. BECKER IN [place] * Pharmacy [facility] * Preadmission Environment Home Alone * ADLs Independent * Equipment None * Other Equipment NO MEDICAL EQUIPMENT PROVIDER PREFERENCE * List name and contact numbers for known caregivers / representatives who currently or will assist patient after discharge: ELIZA BILLINGS, * Verbal permission to speak to the caregivers and representatives has been obtained from the patient. N/A * Community resources currently utilized None * Please name any agencies selected above. NONE * Additional services required to return to the preadmission environment? No * Can the patient safely return to the preadmission environment? Yes * Has this patient been hospitalized within the prior 30 days at any hospital? No Last DP export: 02/21/20 3:44 pm Patient Name: DAJA LAZARO Page [id number] at 0818 All edits/amendments must be made on the electronic document DICTATION DATE: 02/24/20816 SOFTWARE ENGINEER WEB SERVICES: BRITTNEE 02/24/20816 RPT#: [id number] DC DATE:02/22/20 STATUS: DIS IN [facility] [address] [place] [address] END OF REPORT
== END 2020-02-22 18:35 | disposition home or self-care (01) | DRG 196 ==
LOC: D.ER 16:18 → D.M2 19:48
PROVIDERS: Family Medicine; ADMIT Family Medicine; ATTEND Family Medicine
DX: J84.9 Interstitial pulmonary disease, unspecified (principal); J18.9 Pneumonia, unspecified organism; J47.0 Bronchiectasis with acute lower respiratory infection; F17.203 Nicotine dependence unspecified, with withdrawal; I25.10 Atherosclerotic heart disease of native coronary artery without angina pectoris; K21.9 Gastro-esophageal reflux disease without esophagitis; E03.9 Hypothyroidism, unspecified; I10 Essential (primary) hypertension; E78.5 Hyperlipidemia, unspecified; F41.8 Other specified anxiety disorders; N40.0 Benign prostatic hyperplasia without lower urinary tract symptoms; D50.9 Iron deficiency anemia, unspecified; Z86.73 Personal history of transient ischemic attack (TIA), and cerebral infarction without residual deficits; M19.90 Unspecified osteoarthritis, unspecified site

== ENCOUNTER → 2020-03-31 10:51 | Outpatient (CLI) | payer MEDICAID ==
[2020-02-21 12:01] VITALS: BMI 28.8
[~2020-03-31 10:51] MED LIST changes: +DOXYCYCLINE HY100 M2 PO; +LEVAQUIN; +PHENERGAN25 M1; +ZPAK; +[UNRECOGNIZED DRUG - OTHER]
== END | disposition home or self-care (01) ==
LOC: D.RT 03-29 14:00
PROVIDERS: ATTEND Internal Medicine Pulmonary Disease
DX: J84.9 Interstitial pulmonary disease, unspecified (principal)

== ENCOUNTER 2020-05-25 10:55 | Inpatient (IN) | payer MEDICAID ==
[~2020-05-25] VITALS: Ht 172.7 cm; Wt 75.0 kg
[2020-05-25] MEDS ORDERED: EFFEXOR XR150 MG PO (11:09)
[2020-05-25 11:46] LABS: BASOPHILS 0.2 % (0-2); EOSINOPHILS 0.9 % (0-7); HEMATOCRIT 41.3 % (42.0-54.0); HEMOGLOBIN 13.9 g/dL (13.5-17.5); IMMATURE GRANULOCYTES 0.2 % (0-5); LYMPHOCYTES 20.7 % (15-50); MCH 28.5 pg (26.0-34.0); MCHC 33.7 g/dL (31.0-37.0); MCV 84.8 fL (80.0-100.0); MEAN PLATELET VOLUME 9.4 fL (7.4-10.4); MONOCYTES 5.7 % (2-11); NEUTROPHILS 72.3 % (40-80); PLATELET COUNT 269 10x3/uL (130-400); RBC 4.87 10x6/uL (4.20-6.10); RDW 12.8 % (11.5-14.5); WBC 12.9 10x3/uL (4.8-10.8)
[2020-05-25 11:58] LABS: APTT 30.8 SECONDS (22.8-39.4); INR 1.08 (0.85-1.17); PROTIME 13.9 SECONDS (11.6-15.0)
[2020-05-25 12:18] LABS: ALKALINE PHOSPHATASE 168 U/L (30-120); ALT (SGPT) 18 U/L (10-68); BILIRUBIN - TOTAL 0.94 mg/dL (0.2-1.3); CALCIUM 8.9 mg/dL (8.5-10.1); CARBON DIOXIDE 32.5 mmol/L (21.0-32.0); CHLORIDE - SERUM 98 mmol/L (98-107); CKMB 1.1 U/L (0.0-3.6); CREATINE KINASE 154 UL (21-232); CREATININE - SERUM 1.1 mg/dL (0.6-1.3); PRO BNP 174 pg/mL (0-125); PROTEIN - SERUM 8.3 g/dL (6.4-8.2); SODIUM 137 mmol/L (136-145); UREA NITROGEN 5 mg/dL (7-18); eGFR NON AFRICAN AMERICAN 74 mL/min (90-120)
[2020-05-25 12:25] LABS: CALC OSMOLALITY 271 mosm/kg (275-300); GLUCOSE 119 mg/dL (74-106); TROPONIN-I < 0.017 ng/mL (0.000-0.060)
[2020-05-25 12:39] LABS: POTASSIUM - SERUM 2.6 mmol/L (3.5-5.1)
--- NOTE | 2020-05-25 15:35 | NUR ---
IV RIGHT AC DC'D CATH INTACT, IV RESITED LEFT HAND 22G.
[2020-05-25 16:00] VITALS: BP 134/73; BP 147/100
[2020-05-25 17:00] VITALS: BP 144/96
[2020-05-25 17:16] LABS: BILIRUBIN NEGATIVE (NEGATIVE); GLUCOSE NEGATIVE (NEGATIVE); KETONE NEGATIVE (NEGATIVE); NITRITE NEGATIVE (NEGATIVE); SPECIFIC GRAVITY 1.005 (1.005-1.020); UROBILINOGEN NORMAL (NORMAL)
[2020-05-25 18:00] VITALS: BP 152/106
--- NOTE | 2020-05-25 18:17 | NUR ---
REPORT CALLED TO CHANCE OTT, ROOM NOT CLEAN, WILL CALL WHEN READY.
--- NOTE | 2020-05-25 21:00 | NUR ---
PT ARRIVED TO THE FLOOR. ALERT AND ORIENTED. NO SIGNS OF DISTRESS. BREATHING EVEN AND UNLABORED. IV SITE LT HAND DRESSING CLEAN DRY AND INTACT. NO SIGNS OF INFECTION OR INFULTRATION. BILATERAL ARMS MULTI SCABS AND SORES. BOWEL SOUNDS ACTIVE. NO LOWER LEG SWELLING PRESENT. WILL CONTINUE PLAN OF CARE. CALL LIGHT IN REACH. BED LOWERED AND LOCKED. BED RAILS UPX2.
[2020-05-26] VITALS: BP 158/106
[2020-05-26 04:00] VITALS: BP 150/93
[2020-05-26 04:30] VITALS: BMI 27.4
[2020-05-26 05:40] LABS: BASOPHILS 0 % (0-2); EOSINOPHILS 0 % (0-7); HEMATOCRIT 38.3 % (42.0-54.0); HEMOGLOBIN 12.8 g/dL (13.5-17.5); IMMATURE GRANULOCYTES 0.1 % (0-5); LYMPHOCYTES 11.9 % (15-50); MCH 28.4 pg (26.0-34.0); MCHC 33.4 g/dL (31.0-37.0); MCV 85.1 fL (80.0-100.0); MONOCYTES 3.3 % (2-11); NEUTROPHILS 84.7 % (40-80); PLATELET COUNT 263 10x3/uL (130-400); RDW 13.1 % (11.5-14.5)
[2020-05-26 05:42] LABS: WBC 7.3 10x3/uL (4.8-10.8)
[2020-05-26 06:06] LABS: ALBUMIN 3.5 g/dL (3.4-5.0); BILIRUBIN - TOTAL 0.67 mg/dL (0.2-1.3); CALCIUM 8.8 mg/dL (8.5-10.1); CARBON DIOXIDE 28.6 mmol/L (21.0-32.0); CREATININE - SERUM 1.1 mg/dL (0.6-1.3); MAGNESIUM - SERUM 1.2 mg/dL (1.8-2.4); PROTEIN - SERUM 7.6 g/dL (6.4-8.2)
[2020-05-26 06:14] LABS: ANION GAP 15.1 mmol/L (8-16); POTASSIUM - SERUM 2.7 mmol/L (3.5-5.1)
[2020-05-26 08:00] VITALS: BP 139/97
[2020-05-26 12:00] VITALS: BP 145/98
--- NOTE | 2020-05-26 13:04 | NUR ---
I have reviewed this patient and I concur with the Shift Assessment completed by the Licensed Practical Nurse today this shift.
[2020-05-26 14:37] VITALS: BMI 27.3
[2020-05-26 16:00] VITALS: BP 92/51
[2020-05-26 20:00] VITALS: BP 104/64
--- NOTE | 2020-05-26 20:00 | NUR ---
PATIENT RESTING IN BED WATCHING TV. NO S/S OF ACUTE DISTRESS. NO C/O AT THIS TIME. PATIENT HAS 2L OF NASAL CANNULA. PATIENT HAS LEFT HAND IV, SALINE LOC. IV IS PATENT WITHOUT REDNESS, SWELLING, OR TENDERNESS. PATIENT HAS GENERALIZED SORES ALL OVER BODY. PATIENT COMMENTED THAT "IT FEELS LIKE I HAVE A HEMORROID AGAIN. ALSO MY STOOL SEEMS TO HAVE BLOOD IN IT." INSTRUCTED PATIENT THAT NEXT TIME HE HAS A BOWEL MOVEMENT TO LET ME SEE. PATIENT IS UP ADLIB TO THE BATHROOM. CALL LIGHT WITHIN REACH. WILL CONTINUE TO MONITOR.
--- NOTE | 2020-05-27 02:12 | NUR ---
I have reviewed this patient and I concur with the Shift Assessment completed by the Licensed Practical Nurse today this shift.
[2020-05-27 07:59] LABS: ALBUMIN 3.7 g/dL (3.4-5.0); BILIRUBIN - TOTAL 0.46 mg/dL (0.2-1.3); CALCIUM 8.6 mg/dL (8.5-10.1); CARBON DIOXIDE 30.9 mmol/L (21.0-32.0); CREATININE - SERUM 1.3 mg/dL (0.6-1.3); MAGNESIUM - SERUM 1.4 mg/dL (1.8-2.4); PROTEIN - SERUM 7.4 g/dL (6.4-8.2)
[2020-05-27 08:02] LABS: HEMATOCRIT 38.2 % (42.0-54.0); HEMOGLOBIN 12.8 g/dL (13.5-17.5); LYMPHOCYTES 26.6 % (15-50); MCH 28.9 pg (26.0-34.0); MCHC 33.5 g/dL (31.0-37.0); MCV 86.2 fL (80.0-100.0); MEAN PLATELET VOLUME 9.9 fL (7.4-10.4); NEUTROPHILS 65.2 % (40-80); PLATELET COUNT 236 10x3/uL (130-400); RBC 4.43 10x6/uL (4.20-6.10); RDW 12.8 % (11.5-14.5)
[2020-05-27 08:03] LABS: ANION GAP 11.4 mmol/L (8-16); POTASSIUM - SERUM 3.3 mmol/L (3.5-5.1)
[2020-05-27 08:06] LABS: WBC 15.7 10x3/uL (4.8-10.8)
[2020-05-27 08:51] VITALS: BP 118/77
--- NOTE | 2020-05-27 09:59 | NUR ---
PAITENT ALERT AND ORIENTED, RESTING QUIETLY IN BED. RESPIRATIONS EVEN NONLABORED. NO SIGNS OF DISTRESS NOTED. O2 2L. LEFT HAND IV AT 100ML/HR. UP AD MYCHAL. STATES PAIN IS A "10." MORPHINE GIVEN AND TOLERATED. SORES/SCABS ON ARMS. CLEAN DRY IN TACT. DENIES FURTHER NEEDS. SIDE RAILS UP X3. CALL LIGHT IN REACH. WILL CONTINUE TO MONITOR FOR SAFETY.
--- NOTE | 2020-05-27 11:18 | NUR ---
PATIENT ALERT AND ORIENTED IN BED. STATES IV SITE IS "HURTING AND BURNING." IV RESITED TO LEFT FOREARM, PATENT. RESPIRATIONES EVEN NONLABORED. NO SIGNS OF DISTRESS NOTED. DENIES FURTHER NEEDS. SIDE RAILS UP X3. CALL LIGHT IN REACH. WILL CONTINUE TO MONITOR FOR SAFETY.
[2020-05-27 14:02] VITALS: BP 109/75
--- NOTE | 2020-05-27 17:20 | NUR ---
PATIENT ALERT AND ORIENTED. RESTING QUIETLY IN BED WTIH EYES OPEN. RESPIRATIONS EVEN NONLABORED. NO SIGNS OF DISTRESS NOTED. MAG LEVEL 1.4 PO MAG GIVEN AND TOLERATED WELL. POTASSIUM LEVEL 3.4. PO POTASSIUM GIVEN AND TOLERATED WELL. DENIES FURTHER NEEDS. SIDE RAILS UP X3. CALL LIGHT IN REACH. WILL CONTINUE TO MONITOR FOR SAFETY.
[2020-05-27 18:21] VITALS: BP 127/81
--- NOTE | 2020-05-27 18:39 | NUR ---
PATIENT ALERT AND ORIENTED.RESTING IN BED EYES OPEN. RESPIRATIONS EVEN LABORED. NO SIGNS OF DISTRESS NOTED. DENIES FURTHER NEEDS. SIDE RAILS UP X3. CALL LIGHT IN REACH. WILL CONTINUE TO MONITOR FOR SAFETY.
--- NOTE | 2020-05-27 19:00 | NUR ---
BEDSIDE REPORT RECEIVED AND CARE OF PT ASSUMED. PT SITTING UP ON SIDE OF BED...UPSET THAT HE HAD TO GET LABS DRAWN THIS EVENING. C/O IV LEAKING...CHECKED AND RE-TAPED. PT PACING AND HITTING HIS FOREHEAD.
[2020-05-27 20:00] VITALS: BP 114/73
--- NOTE | 2020-05-27 20:21 | NUR ---
HS MEDICATIONS GIVEN TO INCLUDE MORPHINE PER REQUEST. WILL MONITOR FOR EFFECTIVENESS.
--- NOTE | 2020-05-27 20:45 | NUR ---
PT CONTINUES TO BE UPSET WITH ERRATIC BEHAVIOR. CALLED FOR REPORT...SHE SAID THAT SHE WOULD COME TO SEE IF SHE CAN CALM PT DOWN.
--- NOTE | 2020-05-27 23:30 | NUR ---
PT RESTING AT THIS TIME WITH EYES CLOSED AND EASY RESPIRATIONS.
[2020-05-28] VITALS (7 sets, daily range): BP systolic 115–137; BP diastolic 82–93; Ht 172.7 cm; Wt 75.0 kg
[2020-05-28 07:44] LABS: HEMATOCRIT 35.2 % (42.0-54.0); HEMOGLOBIN 11.7 g/dL (13.5-17.5); LYMPHOCYTES 9.6 % (15-50); MCH 28.7 pg (26.0-34.0); MCHC 33.2 g/dL (31.0-37.0); MCV 86.5 fL (80.0-100.0); MEAN PLATELET VOLUME 10.1 fL (7.4-10.4); NEUTROPHILS 89.9 % (40-80); PLATELET COUNT 195 10x3/uL (130-400); RBC 4.07 10x6/uL (4.20-6.10); RDW 12.7 % (11.5-14.5)
[2020-05-28 08:08] LABS: ALBUMIN 3.4 g/dL (3.4-5.0); ALKALINE PHOSPHATASE 112 U/L (30-120); ALT (SGPT) 42 U/L (10-68); BILIRUBIN - TOTAL 0.55 mg/dL (0.2-1.3); CALCIUM 8.7 mg/dL (8.5-10.1); CARBON DIOXIDE 29.9 mmol/L (21.0-32.0); CHLORIDE - SERUM 100 mmol/L (98-107); MAGNESIUM - SERUM 1.5 mg/dL (1.8-2.4); POTASSIUM - SERUM 3.4 mmol/L (3.5-5.1); PROTEIN - SERUM 7.1 g/dL (6.4-8.2); SODIUM 138 mmol/L (136-145); eGFR NON AFRICAN AMERICAN 83 mL/min (90-120)
[2020-05-28 08:16] LABS: CALC OSMOLALITY 277 mosm/kg (275-300); GLUCOSE 157 mg/dL (74-106); UREA NITROGEN 10 mg/dL (7-18)
--- NOTE | 2020-05-28 11:07 | NUR ---
PATIENT ALERT AND ORIENTED RESTING IN BED WITH EYES OPEN. O2 ON 4L. UP AD MYCHAL. SORES ON BOTH UPPER EXTREMETIES. CLEAN DRY INTACT. IV LEAKING. RESITED TO LEFT HAND. PATENT. AM MEDS TOLERATED WELL. PATIENT DRY COUGHING. RESPIRATORY NOTED AND TREATMENT PERFORMED. RESPIRATIONS EVEN NON LABORED. NO FURTHER SIGNS OF DISTRESS. DENIES FURTHER NEEDS. SIDE RAILS UP X3. CALL LIGHT IN REACH. WILL CONTINUE TO MONITOR FOR SAFETY.
--- NOTE | 2020-05-28 14:48 | NUR ---
PATIENT HAULLUNCINATING. PULLED OUT IV. VERY JITTERY. WILL NOT STOP PACING. CONTACTED YOUSUF HOWARDN. STAT ORDER FOR ABG. WILL CONTINUE TO MONITOR.
--- NOTE | 2020-05-28 15:10 | NUR ---
PT BECAME MORE AGITATED AND HITTING AT THE MANZANO, CONTINUES TO HALLUCINATE, CALLED BETO HOPKINS AND RECEIVED ORDER FOR 1 TIME HALDOL. PT STATES HE IS GOING TO KILL HIMSELF AND OTHERS AROUND, HAS ARMS SWINGING IN THE AIR AND HIS LEGS TURNING SIDE TO SIDE. ADMINISTERED MEDICATION IN PT RT ARM.
--- NOTE | 2020-05-28 15:29 | NUR ---
PATIENT REFUSED TO PUT O2 ON AND SIT DOWN. HALLUCINATING, PUNCHING MANZANO. ICU CAME DOWN PUT HIM IN SOFT POINT RESTRAINTS IN BED. TRANSFERRED DOWN TO ICU.
--- NOTE | 2020-05-28 15:33 | NUR ---
RECIEVED PT FROM MS. PT BEING AGRESSIVE AND KICKING AND SPITTING AT STAFF. DR ABEL AND DR RANGEL AT BEDSIDE. GEODON 10MG IM GIVEN PER ORDERS. PLACED ON MONITOR. WILL CONT TO MONITOR.
--- NOTE | 2020-05-28 15:45 | NUR ---
PT CALM AT THIS TIME. VSS. SR ON THE MONITOR. WILL CONT TO MONITOR. PRN ORDERS PER DR RANGEL.
[2020-05-28 16:19] LABS: UDS - AMPHET NEGATIVE QUAL (NEGATIVE); UDS - BARB NEGATIVE QUAL (NEGATIVE); UDS - BENZO NEGATIVE QUAL (NEGATIVE); UDS - COCAINE NEGATIVE QUAL (NEGATIVE); UDS - OPIATE POSITIVE QUAL (NEGATIVE); UDS - PCP NEGATIVE QUAL (NEGATIVE); UDS - THC NEGATIVE QUAL (NEGATIVE)
--- NOTE | 2020-05-28 17:20 | NUR ---
PT LAYING IN BED, EYES CLOSED, RESP EVEN AND UNLABORED. SR ON THE MONITOR.
--- NOTE | 2020-05-28 17:41 | NUR ---
PT GETTING AGITATED. ATIVAN 1MG IV GIVEN PER ORDERS. WILL CONT TO MONITOR.
[2020-05-29] VITALS (22 sets, daily range): BP systolic 109–167; BP diastolic 56–106
[2020-05-29 04:09] LABS: HEMOGLOBIN 12.4 g/dL (13.5-17.5); LYMPHOCYTES 8.3 % (15-50); MCHC 33.5 g/dL (31.0-37.0); MCV 86.4 fL (80.0-100.0); MEAN PLATELET VOLUME 9.8 fL (7.4-10.4); NEUTROPHILS 85.2 % (40-80); PLATELET COUNT 223 10x3/uL (130-400); RBC 4.28 10x6/uL (4.20-6.10); RDW 12.8 % (11.5-14.5)
[2020-05-29 04:34] LABS: ALBUMIN 3.5 g/dL (3.4-5.0); ALKALINE PHOSPHATASE 111 U/L (30-120); ALT (SGPT) 41 U/L (10-68); CALC OSMOLALITY 284 mosm/kg (275-300); CALCIUM 9.2 mg/dL (8.5-10.1); CARBON DIOXIDE 34.5 mmol/L (21.0-32.0); CHLORIDE - SERUM 102 mmol/L (98-107); GLUCOSE 135 mg/dL (74-106); MAGNESIUM - SERUM 1.5 mg/dL (1.8-2.4); PHOSPHOROUS 2.4 mg/dL (2.5-4.9); POTASSIUM - SERUM 3.3 mmol/L (3.5-5.1); PRO BNP 1373 pg/mL (0-125); PROTEIN - SERUM 7.3 g/dL (6.4-8.2); SODIUM 142 mmol/L (136-145); eGFR NON AFRICAN AMERICAN 83 mL/min (90-120)
[2020-05-29 04:43] LABS: UREA NITROGEN 13 mg/dL (7-18)
--- NOTE | 2020-05-29 07:45 | NUR ---
PT INCONTINENT. CLEANED UP AND GIVEN CHG BATH. TOLERATED WELL. WAS ABLE TO HELP SLIGHTLY.
--- NOTE | 2020-05-29 11:40 | NUR ---
Nutrition follow-up: Pt now in ICU / agressive behaviour Kirk bed in use Diet: AHA with po intake ~75% of meals Labs reviewed Wt: 180# RDN following.
[2020-05-29 21:45] LABS: CKMB 2.9 U/L (0.0-3.6)
[2020-05-29 21:46] LABS: CREATINE KINASE 989 UL (21-232); TROPONIN-I < 0.017 ng/mL (0.000-0.060)
[2020-05-30] VITALS (23 sets, daily range): BP systolic 99–149; BP diastolic 67–100
[2020-05-30 01:16] LABS: CKMB 2.1 U/L (0.0-3.6); CREATINE KINASE 785 UL (21-232); TROPONIN-I < 0.017 ng/mL (0.000-0.060)
--- NOTE | 2020-05-30 07:00 | NUR ---
ASSESSMENT COMPLETE PER FLOWSHEET. CHANGED 100 NRB TO 15 LITERS HIGHFLOW. OUT OF RESTRAINTS UP IN CHAIR.
[2020-05-30 07:07] LABS: HEMATOCRIT 39.8 % (42.0-54.0); HEMOGLOBIN 13.1 g/dL (13.5-17.5); MCH 28.5 pg (26.0-34.0); MCHC 32.9 g/dL (31.0-37.0); MCV 86.7 fL (80.0-100.0); NEUTROPHILS 78.4 % (40-80); RBC 4.59 10x6/uL (4.20-6.10); RDW 13.5 % (11.5-14.5); WBC 18.5 10x3/uL (4.8-10.8)
[2020-05-30 07:13] LABS: PLATELET COUNT 270 10x3/uL (130-400)
[2020-05-30 07:35] LABS: CKMB 1.4 U/L (0.0-3.6); CREATINE KINASE 593 UL (21-232); TROPONIN-I < 0.017 ng/mL (0.000-0.060)
[2020-05-30 07:52] LABS: ALBUMIN 3.7 g/dL (3.4-5.0); ALKALINE PHOSPHATASE 108 U/L (30-120); ALT (SGPT) 39 U/L (10-68); BILIRUBIN - TOTAL 1.07 mg/dL (0.2-1.3); CALCIUM 9.5 mg/dL (8.5-10.1); CARBON DIOXIDE 31.4 mmol/L (21.0-32.0); CHLORIDE - SERUM 98 mmol/L (98-107); CREATININE - SERUM 0.9 mg/dL (0.6-1.3); GLUCOSE 122 mg/dL (74-106); MAGNESIUM - SERUM 1.8 mg/dL (1.8-2.4); PROTEIN - SERUM 7.6 g/dL (6.4-8.2); SODIUM 139 mmol/L (136-145); eGFR NON AFRICAN AMERICAN > 90 mL/min (90-120)
[2020-05-30 07:57] LABS: CALC OSMOLALITY 280 mosm/kg (275-300); UREA NITROGEN 19 mg/dL (7-18)
[2020-05-30 08:01] LABS: POTASSIUM - SERUM 2.9 mmol/L (3.5-5.1)
--- NOTE | 2020-05-30 10:00 | NUR ---
CONTINUE TO BE UP IN CHAIR. O2 AT 15 LITERS. VOICES NO CO AT TIME.
--- NOTE | 2020-05-30 11:30 | NUR ---
BACK TO BED WITH ASSIST. VOICES NO CO AT TIME. CONTINUE WITHOUT RESTRAINTS PT MORE COGNITIVE TODAY.
--- NOTE | 2020-05-30 13:00 | NUR ---
SLEEPING NO DISTRESS NOTED. SR UP X 2.
--- NOTE | 2020-05-30 17:13 | NUR ---
SLEEPING NO DISTRESS NOTED. SR UP X 2. CALL LIGHT WITHIN REACH.
--- NOTE | 2020-05-30 19:19 | NUR ---
PT SITTING UP IN BED EATING DINNER. HE WANTED TO KNOW HOW LONG HE HAS BEEN IN THE HOSPITAL. REORIENTED HIM TO TIME AND SITUATION. VSS. HE DENIES PAIN OR NEEDS. BED LOW AND CALL LIGHT WITHIN REACH.
--- NOTE | 2020-05-30 23:29 | NUR ---
PT RESTING WITH EYES CLOSED. RESPIRATIONS EVEN AND UNLABORED. VSS. 300ML OF CONCENTRATED URINE EMPTIED FROM URINAL. BED IS LOW AND CALL LIGHT WITHIN REACH.
[2020-05-31] VITALS (23 sets, daily range): BP systolic 97–136; BP diastolic 69–97
--- NOTE | 2020-05-31 02:19 | NUR ---
NO DISTRESS NOTED. VSS. PT RESTING WITH EYES CLOSED. RESPIRATIONS EVEN AND UNLABORED. HE IS ON 15L HIGH FLOW NC. BED IS LOW AND CALL LIGHT IS WITHIN REACH.
[2020-05-31 04:32] LABS: HEMATOCRIT 39.2 % (42.0-54.0); LYMPHOCYTES 8.7 % (15-50); MCH 28.8 pg (26.0-34.0); MCHC 33.2 g/dL (31.0-37.0); MCV 86.9 fL (80.0-100.0); MEAN PLATELET VOLUME 9.7 fL (7.4-10.4); NEUTROPHILS 86.9 % (40-80); PLATELET COUNT 269 10x3/uL (130-400); RBC 4.51 10x6/uL (4.20-6.10); RDW 13.4 % (11.5-14.5); WBC 17.8 10x3/uL (4.8-10.8)
[2020-05-31 04:54] LABS: ALBUMIN 3.4 g/dL (3.4-5.0); ALKALINE PHOSPHATASE 100 U/L (30-120); ALT (SGPT) 36 U/L (10-68); BILIRUBIN - TOTAL 1.04 mg/dL (0.2-1.3); CALC OSMOLALITY 278 mosm/kg (275-300); CALCIUM 9.1 mg/dL (8.5-10.1); CARBON DIOXIDE 34.1 mmol/L (21.0-32.0); CHLORIDE - SERUM 99 mmol/L (98-107); CREATININE - SERUM 0.9 mg/dL (0.6-1.3); GLUCOSE 149 mg/dL (74-106); PROTEIN - SERUM 6.7 g/dL (6.4-8.2); SODIUM 137 mmol/L (136-145); UREA NITROGEN 19 mg/dL (7-18); eGFR NON AFRICAN AMERICAN > 90 mL/min (90-120)
[2020-05-31 04:56] LABS: POTASSIUM - SERUM 4.2 mmol/L (3.5-5.1)
--- NOTE | 2020-05-31 07:00 | NUR ---
RECEIVED REPORT. AAOX3. BED IN LOW POSITION WITH SR UP X 2. CALL LIGHT IN REACH.
--- NOTE | 2020-05-31 09:00 | NUR ---
FRIEND AT BEDSIDE FOR VISIT. NO NEEDS AT THIS TIME. SR UP X2. BED IN LOW POSITION. WILL CONTINUE TO MONITOR FOR ANY CHANGES
--- NOTE | 2020-05-31 11:00 | NUR ---
NO CHANGES FROM PREVIOUS ASSESSMENT. SR UP X 2. CALL LIGHT IN REACH.
--- NOTE | 2020-05-31 11:11 | NUR ---
Nutrition follow-up: Diet: low sodium PO intake ~75% of meals Labs reviewed Wt:180# Pt continues with confusion per nurse; no aggresion today PO intake continues to be good RDN following.
--- NOTE | 2020-05-31 13:00 | NUR ---
UP TO EAT LUNCH. NO ISSUES VOICED AT THIS TIME. SR UP X 2. CALL LIGHT IN REACH. BED IN LOW POSITION.
--- NOTE | 2020-05-31 15:00 | NUR ---
AWAKE WATCHING TV. NO ISSUES. CALL LIGHT IN REACH. SR UP X 2
--- NOTE | 2020-05-31 17:00 | NUR ---
UP TO CHAIR FOR BATH. TOLERATES WELL. NO CHANGE FROM PREVIOUS ASSESSMENT
--- NOTE | 2020-05-31 19:30 | NUR ---
BEDSIDE SHIFT REPORT COMPLETED. INTRODUCED MYSELF TO PT PRIMARY RN FOR [facility] SHIFT. PT IS A&O SITTING UP IN BED RESTING QUIETLY. RR NONLABORED WITH HI-FLOW NC @14L IN PLACE, O2 SAT 99% WILL TRY TO WEAN PT DOWN TOLERATED. PT HAS A L.WRIST PIV WITH NS INFUSING @15ML/HR. PT ALSO HAS A R.FA PIV THAT IS SL. PT STATES HE IS FEELING GOOD OVERALL. DENIES ANY IMMEDIATE NEEDS AT THIS TIME. CL IN REACH, BED IN LOWEST, SIDE RAILS X2. WILL REVIEW CHART AND ORDERS AND CPOC.
--- NOTE | 2020-05-31 21:41 | NUR ---
NIGHTLY MEDICATIONS GIVEN AND PT SWALLOWED WITHOUT ANY DIFFICULTIES. PT IS SITTING UP IN BED WATCHING TV VISITING WITH HIS AT BEDSIDE. RR NONLABORED WITH HI-FLOW NC @8L, I WEANED HIM DOWN TO 5L AND PT KNOWS TO CALL ME IF HE FEELS SOB OR LABORED. NO IMMEDIATE NEEDS AT THIS TIME. IV ANBX INFUSING VIA L.WRIST PIV, CL IN REACH, BED IN LOWEST, SIDE RAILS X2, WILL CPOC.
[2020-06-01] VITALS (12 sets, daily range): BP systolic 106–127; BP diastolic 68–91
--- NOTE | 2020-06-01 01:11 | NUR ---
PT REQUESTING TO GET OOB TO USE BR. DISCONNECTED PT SO HE COULD SAFELY AMBULATE. PT UP TO BEDSIDE COMMODE WITH SLOW STEADY GAIT. NO FURTHER NEEDS. WILL CTM.
--- NOTE | 2020-06-01 01:49 | NUR ---
PT PASSED A LOT OF GAS AND HAD VERY SCANT AMOUNT OF BOWEL MOVEMENT, DARK AND FORMED. PT BACK IN BED AND DENIES ANY CURRENT PAIN OR NEEDS. RR NONLABORED WITH HIFLOW NC @5L IN PLACE. WILL CPOC.
--- NOTE | 2020-06-01 04:22 | NUR ---
NO SPUTUM COLLECTED PT WAS NOT ABLE TO PROVIDE A SPECIMEN.
--- NOTE | 2020-06-01 06:18 | NUR ---
PT SITTING UP IN BED PLAYING ON HIS PHONE. PT REQUESTED A WARM BLANKET AND WAS PROVIDED WITH IT. EMPTIED BEDSIDE URINAL. PT STATES HE HASNT BEEN ABLE TO SLEEP THE PAST COUPLE OF NIGHTS AND C/O NIGHTMARES. WILL PASS ON IN REPORT AND SEE IF SLEEPING MEDICATION MAY HELP. PT VOICED THANKS AND DENIES ANY FURTHER NEEDS AT THIS TIME. CL IN REACH, BED IN LOWEST, SIDE RAILS X2. WILL CPOC.
[2020-06-01 06:43] LABS: CALC OSMOLALITY 274 mosm/kg (275-300); CALCIUM 9.1 mg/dL (8.5-10.1); CARBON DIOXIDE 30.2 mmol/L (21.0-32.0); CHLORIDE - SERUM 99 mmol/L (98-107); CREATININE - SERUM 0.7 mg/dL (0.6-1.3); GLUCOSE 140 mg/dL (74-106); MAGNESIUM - SERUM 1.8 mg/dL (1.8-2.4); SODIUM 136 mmol/L (136-145); UREA NITROGEN 15 mg/dL (7-18); eGFR NON AFRICAN AMERICAN > 90 mL/min (90-120)
--- NOTE | 2020-06-01 07:00 | NUR ---
AM ASSESSEMENT COMPLETE. SR UP X 2. CALL LIGHT IN REACH. BEDSIDE ALARM WITH PARAMETERS SET.
[2020-06-01 07:42] LABS: HEMATOCRIT 38.9 % (42.0-54.0); HEMOGLOBIN 12.9 g/dL (13.5-17.5); LYMPHOCYTES 10.7 % (15-50); MCH 28.9 pg (26.0-34.0); MCHC 33.2 g/dL (31.0-37.0); MCV 87.2 fL (80.0-100.0); MEAN PLATELET VOLUME 10.6 fL (7.4-10.4); NEUTROPHILS 83.7 % (40-80); PLATELET COUNT 299 10x3/uL (130-400); RBC 4.46 10x6/uL (4.20-6.10); RDW 13.6 % (11.5-14.5); WBC 18.4 10x3/uL (4.8-10.8)
--- NOTE | 2020-06-01 09:00 | NUR ---
NO CHANGE FROM PREVIOUS ASSESSEMENT. UP TO CHAIR FOR BATH. LINENS CHANGED.
--- NOTE | 2020-06-01 11:00 | NUR ---
ON PHONE WITH FAMILY. NO DISTRESS NOTED. SR UP X 2. CALL LIGHT IN REACH
--- NOTE | 2020-06-01 13:34 | NUR ---
REPORT GIVEN TO MED SURG NURSE. PATIENT GOING TO ROOM 2223. WILL TRANSPORT VIA W/C
--- NOTE | 2020-06-01 14:00 | NUR ---
PT ARRIVES TO ROOM VIA WHEELCHAIR ESCORTED BY ICU NURSE. PT IS AAO X 4 AND ANSWERS ALL QUESTIONS APPROPRIATLEY. PIV TO RIGHT FA AND LEFT HAND ARE SALINE LOCKED. O2 VIA HFNC 5L PT DENIES PRESENCE OF PAIN/N/V/DYSPNEA AT THIS TIME. PT ORIENTED TO ROOM AND FLOOR. PT VERBALIZES UNDERSTANDING. SCDS ARE ON BLE AND WORKING. BED ALARM IS ON AND WORKING. BED IS IN THE LOWEST POSITION. CALL LIGHT AND BEDSIDE TABLE ARE WITHIN REACH. SIDE RAILS X 2. PT DENIES FURTHER NEEDS. WILL CONT TO MONITOR.
--- NOTE | 2020-06-01 21:51 | NUR ---
PT UPSET BECAUSE HE STATES HE IS NOT SLEEPING WELL AT NIGHT AND HE IS VERY TIRED. ATIVAN GIVEN PER PRN ORDER. HE DENIES FURTHER NEEDS. BED LOW AND CALL LIGHT IS WITHIN REACH.
[2020-06-02 04:00] VITALS: BP 108/73
[2020-06-02 06:25] LABS: APTT 25.5 SECONDS (22.8-39.4); INR 1.09 (0.85-1.17); PROTIME 14.1 SECONDS (11.6-15.0)
[2020-06-02 06:33] LABS: CALC OSMOLALITY 280 mosm/kg (275-300); CARBON DIOXIDE 32.3 mmol/L (21.0-32.0); CHLORIDE - SERUM 99 mmol/L (98-107); GLUCOSE 111 mg/dL (74-106); SODIUM 139 mmol/L (136-145); UREA NITROGEN 18 mg/dL (7-18)
[2020-06-02 06:48] LABS: CREATININE - SERUM 0.9 mg/dL (0.6-1.3); eGFR NON AFRICAN AMERICAN > 90 mL/min (90-120)
[2020-06-02 06:49] LABS: POTASSIUM - SERUM 2.5 mmol/L (3.5-5.1)
[2020-06-02 07:27] LABS: HEMATOCRIT 39.4 % (42.0-54.0); LYMPHOCYTES 25.6 % (15-50); MCH 28.8 pg (26.0-34.0); MCV 87.4 fL (80.0-100.0); MEAN PLATELET VOLUME 10.3 fL (7.4-10.4); NEUTROPHILS 69.5 % (40-80); PLATELET COUNT 297 10x3/uL (130-400); RBC 4.51 10x6/uL (4.20-6.10); RDW 13.9 % (11.5-14.5); WBC 18.6 10x3/uL (4.8-10.8)
--- NOTE | 2020-06-02 07:51 | NUR ---
ALERT AND ORIENTED. LUNGS DIMINISHED BILATERALLY. HEART SOUNDS S1 AND S2 HEARD IN ALL NAVA. BOWEL SOUNDS ACTIVE X 4. IV TO RFA PATENT WITHOUT REDNESS. O2 IN PLACE AT 5LHFNC. DENIES NEEDS. BED LOW. CALL OCHOA AND PERSONAL ITEMS IN REACH. WILL CONTINUE TO MOITOR.
[2020-06-02 08:30] VITALS: BP 106/68
--- NOTE | 2020-06-02 09:10 | NUR ---
PATIENT STATES IV TO LFA AND RFA HURT AND WANTS REMOVED. BOTH REMOVED WITH TIP INTACT. RESITED TO LEFT HAND AFTER ONE ATTEMPT WITH 22 GAUGE.
--- NOTE | 2020-06-02 09:12 | NUR ---
ATTEMPTED TO CALL PATIENT'S DAUGHTER AND SON PER REQUEST WITH NO ANSWER FROM ETHER.
--- NOTE | 2020-06-02 09:24 | NUR ---
HAVE BEEN ATTEMPTED TO RUN IV POTASSIUM SINCE START OF SHIFT. PATIENT C/O PAIN WITH BOTH PREVIOUS IV EVEN IF RATE TURNED DOWN. PATIENT NOW C/O PAIN WITH NEW IV IN LEFT HAND. IV FLUSHES AND DRAWS WITHOUT ISSUE. STATES CANNOT TOLERATE IV POTASSIUM. PATIENT NPO. WILL TALK TO SANDEEP HERR.
--- NOTE | 2020-06-02 10:16 | NUR ---
SPOKE WITH SANDEEP HERR ABOUT PATIENT'S POTASSIUM LEVEL AND INABILITY TO TOLERATE POTASSIUM IV. STATES "LET ME THINK ABOUT IT FOR A SECOND." WAITING ORDERS.
--- NOTE | 2020-06-02 11:05 | NUR ---
SPOKE WITH SANDEEP HERR WHO STATES CALL IR AND SEE IF OK TO TX LOW POTASSIUM WITH PO POTASSIUM. CALLED IR AND STATES OK.
[2020-06-02 12:00] VITALS: BP 97/71
--- NOTE | 2020-06-02 12:05 | NUR ---
SPOKE WITH IR WHO STATES NOT TAKING PATIENT TODAY D/T CL POTASSIUM. STATES WILL TAKE FRIDAY.
[2020-06-02 17:19] VITALS: BP 96/73
[2020-06-02 20:00] VITALS: BP 91/60
[2020-06-03 04:00] VITALS: BP 97/59
[2020-06-03 07:14] LABS: BASOPHILS 0.1 % (0-2); EOSINOPHILS 1.6 % (0-7); HEMATOCRIT 41.7 % (42.0-54.0); HEMOGLOBIN 13.6 g/dL (13.5-17.5); IMMATURE GRANULOCYTES 0.4 % (0-5); LYMPHOCYTES 22.7 % (15-50); MCH 28.3 pg (26.0-34.0); MCHC 32.6 g/dL (31.0-37.0); MCV 86.7 fL (80.0-100.0); MEAN PLATELET VOLUME 10.2 fL (7.4-10.4); MONOCYTES 6.8 % (2-11); NEUTROPHILS 68.4 % (40-80); PLATELET COUNT 316 10x3/uL (130-400); RBC 4.81 10x6/uL (4.20-6.10); RDW 13.6 % (11.5-14.5); WBC 14.1 10x3/uL (4.8-10.8)
[2020-06-03 07:27] LABS: CALC OSMOLALITY 280 mosm/kg (275-300); CALCIUM 9.1 mg/dL (8.5-10.1); CARBON DIOXIDE 31.9 mmol/L (21.0-32.0); CHLORIDE - SERUM 101 mmol/L (98-107); CREATININE - SERUM 0.8 mg/dL (0.6-1.3); GLUCOSE 110 mg/dL (74-106); POTASSIUM - SERUM 3.6 mmol/L (3.5-5.1); SODIUM 140 mmol/L (136-145); UREA NITROGEN 14 mg/dL (7-18); eGFR NON AFRICAN AMERICAN > 90 mL/min (90-120)
--- NOTE | 2020-06-03 07:43 | NUR ---
PT TONO GIN BED ON RT SIDE, STARTED PT ABX, NO S/SX OF DISTRESS, CL IN REACH, IV IN LEFT FA CDI, PT O2 AT 3L, NO OTHER NEEDS AT THIS TIME. CONTINUE WITH PLAN OF CARE
[2020-06-03 08:00] VITALS: BP 95/64
[2020-06-03 12:00] VITALS: BP 82/52
[2020-06-03 16:00] VITALS: BP 85/49
--- NOTE | 2020-06-03 17:55 | NUR ---
I have reviewed this patient and I concur with the Shift Assessment completed by the Licensed Practical Nurse today this shift.
--- NOTE | 2020-06-03 19:00 | NUR ---
BEDSIDE REPORT RECEIVED AND CARE OF PT ASSUMED. PT LYING IN HIGH AMBROSE'S POSITION WATCHING TV. IV TO LEFT FA SALINE LOCKED. O2 IN USE VIA NC AT 3L. TELEMETRY IN PLACE PER ORDER. WILL MONITOR FOR NEEDS.
[2020-06-03 20:00] VITALS: BP 90/59
--- NOTE | 2020-06-03 20:33 | NUR ---
HS MEDICATIONS GIVEN TO INCLUDE FLEXERIL PER PRN ORDER, PER REQUEST. PT DECLINED ANUSOL CREAM AND SUPPOSITORY AT THIS TIME. WILL CONTINUE TO MONITOR FOR NEEDS.
[2020-06-04 01:50] VITALS: BP 118/72
[2020-06-04 04:00] VITALS: BP 98/52
--- NOTE | 2020-06-04 04:36 | NUR ---
PT REFUSED TO HAVE AM LABS DRAWN.
--- NOTE | 2020-06-04 08:53 | NUR ---
resting in bed, no distress noted, tele in place, bed alarm for safety, refused am labs, cont to monitor
[2020-06-04 09:04] VITALS: BP 104/73
[2020-06-04 13:00] VITALS: BP 115/72
[2020-06-04 16:00] VITALS: BP 98/68
--- NOTE | 2020-06-04 19:00 | NUR ---
BEDSIDE REPORT RECEIVED AND CARE OF PT ASSUMED. PT LYING IN HIGH AMBROSE'S POSITION VISITING WITH FAMILY MEMBER. IV TO LEFT FA SALINE LOCKED. TELEMETRY IN USE PER ORDER AND READING [address] AT THIS ASSESSMENT. O2 IN USE VIA NC AT 3L. WILL MONITOR FOR NEEDS.
[2020-06-04 20:00] VITALS: BP 110/77
--- NOTE | 2020-06-04 20:19 | NUR ---
HS MEDICATIONS GIVEN TO INCLUDE FLEXERIL PER PRN ORDER, PER REQUEST. WILL CONTINUE TO MONITOR FOR NEEDS.
--- NOTE | 2020-06-04 20:30 | NUR ---
GAVE CHOCOLATE ICE CREAM FOR HS SNACK.
[2020-06-05] VITALS: BP 118/76
[2020-06-05 04:00] VITALS: BP 121/78
--- NOTE | 2020-06-05 07:45 | NUR ---
PATIENT STATED HE DOES NOT WANT CT BIOPSY, WAS TOLD BY PHYSICIAN THAT HE WOULD HAVE A OP PET SCAN. STATED HE IS GOING HOME. NO COMPLAINTS AT THIS TIME. CALL LIGHT WITHIN REACH.
[2020-06-05 08:00] VITALS: BP 105/67
[2020-06-05 12:25] VITALS: BP 105/68
[2020-06-05 13:09] LABS: HEMATOCRIT 40.5 % (42.0-54.0); HEMOGLOBIN 13.3 g/dL (13.5-17.5); MCH 28.9 pg (26.0-34.0); MCHC 32.8 g/dL (31.0-37.0); MCV 87.9 fL (80.0-100.0); MEAN PLATELET VOLUME 9.7 fL (7.4-10.4); PLATELET COUNT 272 10x3/uL (130-400); RBC 4.61 10x6/uL (4.20-6.10); RDW 13.4 % (11.5-14.5); WBC 20.3 10x3/uL (4.8-10.8)
[2020-06-05 13:18] LABS: APTT 29.8 SECONDS (22.8-39.4); INR 1.03 (0.85-1.17); PROTIME 13.4 SECONDS (11.6-15.0)
[2020-06-05 13:27] LABS: CALC OSMOLALITY 272 mosm/kg (275-300); CARBON DIOXIDE 32.5 mmol/L (21.0-32.0); CHLORIDE - SERUM 98 mmol/L (98-107); GLUCOSE 100 mg/dL (74-106); MAGNESIUM - SERUM 1.4 mg/dL (1.8-2.4); PHOSPHOROUS 1.9 mg/dL (2.5-4.9); POTASSIUM - SERUM 3.2 mmol/L (3.5-5.1); SODIUM 136 mmol/L (136-145); UREA NITROGEN 15 mg/dL (7-18); eGFR NON AFRICAN AMERICAN 83 mL/min (90-120)
[2020-06-05 14:32] LABS: LYMPHOCYTES 18 % (15-50); MONOCYTES 9 % (2-11); NEUTROPHILS 73 % (40-80); PLATELET ESTIMATE NORMAL
[2020-06-05] MEDS ORDERED: LEVAQUIN750 MG PO (16:48)
[2020-06-05] MEDS ORDERED: NICODERM CQ1 EAC3 TOPICAL (17:02)
[2020-06-05] MEDS ORDERED: LASIX40 MG PO (17:02)
--- NOTE | 2020-06-05 17:28 | MORECARE ---
CASE MANAGEMENT DISCHARGE SUMMARY PATIENT: DAJA LAZARO UNIT: [id number] ADM DATE: 05/25/20 AGE: 54 : 65 SEX: M ROOM/BED: D.2223 AUTHOR: ADRYAN DAVID PHYSICIAN: REFERRING PHYSICIAN: ESTEBAN LORENZO MD DATE OF SERVICE: 06/05/20 Discharge Plan Patient Name: DAJA LAZARO Facility: [facility]:[place] : 1965 Planned Disposition: Anticipated Discharge Date: Discharge Date: Expected LOS: Initial Reviewer: [email or web address] Initial Review Date: 06/05/2020 Generated: 06/05/20 6:28 pm Patient Name: DAJA LAZARO Page [id number] at 1728 All edits/amendments must be made on the electronic document DICTATION DATE: 06/05/201727 AREA SALES MANAGER: BRITTNEE 06/05/201727 RPT#: [id number] DC DATE: STATUS: ADM IN [facility] [address] [place] [address] END OF REPORT
--- NOTE | 2020-06-05 17:36 | MORECARE ---
CASE MANAGEMENT DISCHARGE SUMMARY PATIENT: DAJA LAZARO UNIT: [id number] ADM DATE: 05/25/20 AGE: 54 : 65 SEX: M ROOM/BED: D.2223 AUTHOR: ADRYAN DAVID PHYSICIAN: REFERRING PHYSICIAN: ESTEBAN LORENZO MD DATE OF SERVICE: 06/05/20 Discharge Plan Patient Name: DAJA LAZARO Facility: [facility]:[place] : 1965 Planned Disposition: Anticipated Discharge Date: Discharge Date: Expected LOS: Initial Reviewer: [email or web address] Initial Review Date: 06/05/2020 Generated: 06/05/20 6:35 pm Comments DCP- Discharge Planning Updated by [email or web address]: Rola Farris on 06/05/20 4:[address] Patient Name: DAJA LAZARO Admission Status: ER Accout number: [id number] Admission Date: 05-25-2020 : 1965 Admission Diagnosis:PNEUMONIA, UNSPECIFIED ORGANISM Attending: ANTHONY Current LOS: 11 Anticipated DC Date: Planned Disposition: Primary Insurance: [place] PRIVATE OPTIONS RAMÍREZ Discharge Planning Comments: CM met with patient at bedside after explaining CM role and obtaining verbal consent. CM discussed availability / needs of home health, REHAB and medical equipment. PATIENT DENIES ANY DISCHARGE NEEDS. Cash Application Clerk: Rola Farris DCPIA - Discharge Planning Initial Assessment Updated by [email or web address]: Rola Farris on 06/05/20 5:29 pm * Is the patient Alert and Oriented? Yes * PCP MAURA * Pharmacy [facility] [address] * Preadmission Environment Home with Family * ADLs Independent * Other Equipment 02, [facility] WITH [facility] PATIENT * Additional services required to return to the preadmission environment? No * Can the patient safely return to the preadmission environment? Yes * Has this patient been hospitalized within the prior 30 days at any hospital? No Last DP export: 06/05/20 4:28 p Patient Name: DAJA LAZARO Page [phone] at 1736 All edits/amendments must be made on the electronic document DICTATION DATE: 06/05/201734 LICENSED PRACTICAL NURSE INSTRUCTOR: DM 06/05/201734 RPT#: [id number] DC DATE: STATUS: ADM IN [facility] [address] [place] [address] END OF REPORT
--- NOTE | 2020-06-05 17:50 | NUR ---
PATIENT RECIEVED DC INSTRUCTIONS. VERBALIZED UNDERSTANDING. NO QUESTIONS AT THIS TIME. IV REMOVED WITH CATH TIP INTACT. FAMILY AT SIDE. EXPLAINED TO LEADERSHIP RECRUITER MEDS AT PHARMACY. WAITING FOR WC FOR DC. CALL LIGHT WITHIN REACH.
--- NOTE | 2020-06-07 08:45 | MORECARE ---
CASE MANAGEMENT DISCHARGE SUMMARY PATIENT: DAJA LAZARO UNIT: [id number] ADM DATE: 05/25/20 AGE: 54 : 65 SEX: M ROOM/BED: D.2223 AUTHOR: ADRYAN DAVID PHYSICIAN: REFERRING PHYSICIAN: ESTEBAN LORENZO MD DATE OF SERVICE: 06/07/20 Discharge Plan Patient Name: DAJA LAZARO Facility: [facility]:[place] : 1965 Planned Disposition: Anticipated Discharge Date: Discharge Date: 06/05/2020 Expected LOS: Initial Reviewer: [email or web address] Initial Review Date: 06/05/2020 Generated: 06/07/20 9:44 am Comments DCP- Discharge Planning Updated by [email or web address]: Rola Farris on 06/05/20 4:[address] Patient Name: DAJA LAZARO Admission Status: ER Accout number: [id number] Admission Date: 05-25-2020 : 1965 Admission Diagnosis:PNEUMONIA, UNSPECIFIED ORGANISM Attending: ANTHONY Current LOS: 11 Anticipated DC Date: Planned Disposition: Primary Insurance: [place] PRIVATE [employer]IONS RAMÍREZ Discharge Planning Comments: CM met with patient at bedside after explaining CM role and obtaining verbal consent. CM discussed availability / needs of home health, REHAB and medical equipment. PATIENT DENIES ANY DISCHARGE NEEDS. Field Artillery Crewmember: Rola Farris DCPIA - Discharge Planning Initial Assessment Updated by [email or web address]: Rola Farris on 06/05/20 5:29 pm * Is the patient Alert and Oriented? Yes * PCP MAURA * [facility] * Preadmission Environment Home with Family * ADLs Independent * Other Equipment 02, [facility] PATIENT * Additional services required to return to the preadmission environment? No * Can the patient safely return to the preadmission environment? Yes * Has this patient been hospitalized within the prior 30 days at any hospital? No Last DP export: 06/05/20 4:36 p Patient Name: DAJA LAZARO Page [phone] at 0845 All edits/amendments must be made on the electronic document DICTATION DATE: 06/07/2044 HAZARDOUS MATERIALS DRIVER: BRITTNEE 06/07/20 0844 RPT#: [id number] DC DATE:06/05/20 STATUS: DIS IN [facility] [address] [place] [address] END OF REPORT
--- NOTE | 2020-06-07 14:49 | EC ---
PATIENT:DAJA LAZARO DATE OF SERVICE: 05/25/20 SEX: M MEDICAL RECORD: [id number] DATE OF : 65 LOCATION:D.[facility] AGE OF PATIENT: 54 ADMISSION DATE: 05/25/20 REFERRING PHYSICIAN: INTERPRETING PHYSICIAN: YAMILA DOSS MD ECHOCARDIOGRAM REPORT ECHO CHARGES 4 ECHO COMPLETE Date: 06/02/20 CLINICAL DIAGNOSIS: CP, SOB ECHOCARDIOGRAPHIC MEASUREMENTS (adult normal given) AC root (d.<3.7cm) 3.4 cm LV Septum d (<1.2 cm> 0.7 cm Valve Excursion 1.7 cm LV Septum (systole) 0.8 cm Left Atria (s.<4.0cm> 3.5 cm LVPW d(<1.2cm) 1.0 cm RV (d.<2.3cm) 3.4 cm LVPW (sytole) 1.3 cm LV diastole(<5.6CM) 5.0 cm MV E-F(>70mm/sec) cm LV systole 4.3 cm LVOT Diameter 1.9 cm MV exc.(>10mm) cm Est.ejection fraction (50-75%) % DOPPLER: LVIT cm/sec A 65 cm/sec E 46 cm/sec LA cm/sec RVSP 17.5 mmHg LVOT 73 cm/sec AOP1/2T m/s Asc. Ao 91 cm/sec RVOT 53 cm/sec RA cm/sec PA 62 cm/sec AV Gradient Peak 3.3 mmHg AV Mean 1.8 mmHg AV Area 2.2 cm MV Gradient Peak 2.2 mmHg MV Mean 1.3 mmHg MV Area cm COMMENTS: Life Insurance Salesperson: Christophe SUN Peanut Shaker: Lorenza Doss TAPE# PACS Pericardial Effusion N DATE OF SERVICE: PROCEDURE: Transthoracic echocardiogram. FINDINGS: 1. Left ventricle is normal size, shape, structure, and function. 2. Left atrium is normal size, shape, structure, and function. 3. Aortic valve is normal. 4. Mitral valve is normal. 5. Tricuspid valve has trace tricuspid regurgitation with normal right ECHOCARDIOGRAM REPORT [id number] DAJA LAZARO ventricular systolic pressures. 6. Right ventricle is mildly enlarged with normal function. 7. Right atrium is normal size, shape, structure, and function. 8. Pulmonic valve is normal. TRANSINT:[id number] Voice Confirmation ID: [id number] DOCUMENT ID: [id number] YAMILA DOSS MD at 1449 CC: [id number] DICTATION DATE: 06/06/20 105 TRANSCRIPTION SPECIALIST: 06/06/20 1159 DIS IN 06/05/20 [facility] [address] [id number]
== END 2020-06-05 18:12 | disposition home or self-care (01) | DRG 193 ==
LOC: D.ER 10:55 → D.ICU 16:29 → D.MS 16:29 → D.ICU 05-28 15:35 → D.MS 06-01 13:29
PROVIDERS: Family Medicine; Family Medicine Adult Medicine; General Practice; Radiology Diagnostic Radiology; ADMIT Family Medicine; ATTEND Family Medicine
DX: J18.9 Pneumonia, unspecified organism (principal); J96.21 Acute and chronic respiratory failure with hypoxia; F17.203 Nicotine dependence unspecified, with withdrawal; E87.6 Hypokalemia; R31.9 Hematuria, unspecified; I10 Essential (primary) hypertension; E78.5 Hyperlipidemia, unspecified; I25.10 Atherosclerotic heart disease of native coronary artery without angina pectoris; K21.9 Gastro-esophageal reflux disease without esophagitis; N40.0 Benign prostatic hyperplasia without lower urinary tract symptoms; E03.9 Hypothyroidism, unspecified; M19.90 Unspecified osteoarthritis, unspecified site; G89.29 Other chronic pain; F41.8 Other specified anxiety disorders; F19.10 Other psychoactive substance abuse, uncomplicated; D50.9 Iron deficiency anemia, unspecified; J47.9 Bronchiectasis, uncomplicated; J30.9 Allergic rhinitis, unspecified

== ENCOUNTER 2020-06-09 12:30 | Inpatient (IN) | payer MEDICAID ==
[2020-06-09] VITALS (15 sets, daily range): BP systolic 105–148; BP diastolic 71–90; BMI 26.5
[~2020-06-09] VITALS: Ht 172.7 cm; Wt 81.5 kg
[~2020-06-09 12:30] MED LIST changes: +EFFEXOR XR150 MG PO; +LASIX40 MG PO; +NICODERM CQ1 EAC3 TOPICAL
--- NOTE | 2020-06-09 13:00 | NUR ---
PT ANXIOUS AT THIS TIME ABOUT IV START AND NEEDLES. NOTED INCREASED RESP, PULSE, WILL MONITOR ONCE PT RELAXES.
--- NOTE | 2020-06-09 13:16 | NUR ---
PT RESTING QUIETLY AT THIS TIME. NO ACUTE DISTRESS NOTED. CONTINUE TO MONITOR.
[2020-06-09 13:19] LABS: BASOPHILS 0.1 % (0-2); EOSINOPHILS 1.7 % (0-7); HEMATOCRIT 38.8 % (42.0-54.0); HEMOGLOBIN 12.9 g/dL (13.5-17.5); IMMATURE GRANULOCYTES 0.5 % (0-5); MCH 28.9 pg (26.0-34.0); MCHC 33.2 g/dL (31.0-37.0); MCV 86.8 fL (80.0-100.0); MEAN PLATELET VOLUME 10.1 fL (7.4-10.4); MONOCYTES 6.9 % (2-11); NEUTROPHILS 76.8 % (40-80); PLATELET COUNT 298 10x3/uL (130-400); RBC 4.47 10x6/uL (4.20-6.10); RDW 13.3 % (11.5-14.5); WBC 18.9 10x3/uL (4.8-10.8)
[2020-06-09 13:30] LABS: CALC OSMOLALITY 260 mosm/kg (275-300); CALCIUM 9.2 mg/dL (8.5-10.1); CARBON DIOXIDE 31.4 mmol/L (21.0-32.0); CHLORIDE - SERUM 92 mmol/L (98-107); CREATININE - SERUM 1.1 mg/dL (0.6-1.3); GLUCOSE 115 mg/dL (74-106); SODIUM 131 mmol/L (136-145); UREA NITROGEN 5 mg/dL (7-18); eGFR NON AFRICAN AMERICAN 74 mL/min (90-120)
[2020-06-09 13:31] LABS: INR 1.1 (0.85-1.17); PROTIME 14.2 SECONDS (11.6-15.0)
[2020-06-09 13:33] LABS: D-DIMER-QUANTITATIVE 0.77 ug/mLFEU (0.20-0.54)
[2020-06-09 13:45] LABS: ALBUMIN 3.2 g/dL (3.4-5.0); ALKALINE PHOSPHATASE 107 U/L (30-120); ALT (SGPT) 30 U/L (10-68); BILIRUBIN - TOTAL 0.71 mg/dL (0.2-1.3); CKMB 0.9 U/L (0.0-3.6); CREATINE KINASE 43 UL (21-232); PRO BNP 247 pg/mL (0-125); PROTEIN - SERUM 7.5 g/dL (6.4-8.2); TROPONIN-I < 0.017 ng/mL (0.000-0.060)
--- NOTE | 2020-06-09 14:45 | NUR ---
PT TO CT AT THIS TIME.
[2020-06-09 18:44] LABS: BILIRUBIN NEGATIVE (NEGATIVE); GLUCOSE NEGATIVE (NEGATIVE); KETONE NEGATIVE (NEGATIVE); NITRITE NEGATIVE (NEGATIVE); UROBILINOGEN NORMAL (NORMAL)
[2020-06-09 18:58] LABS: UDS - AMPHET NEGATIVE QUAL (NEGATIVE); UDS - BARB NEGATIVE QUAL (NEGATIVE); UDS - BENZO NEGATIVE QUAL (NEGATIVE); UDS - COCAINE NEGATIVE QUAL (NEGATIVE); UDS - OPIATE POSITIVE QUAL (NEGATIVE); UDS - PCP NEGATIVE QUAL (NEGATIVE); UDS - THC NEGATIVE QUAL (NEGATIVE)
[2020-06-09] MEDS ORDERED: CHRONULAC30 ML PO (22:08)
--- NOTE | 2020-06-09 23:22 | NUR ---
2149- PATIENT ARRIVED VIA ER STRETCHER. O2 AT 4L VIA NC. WHEN PUT ON MOINTOR, O2 SAT WAS 84%. INCREASED O2 AT 6L VIA NC TO GET O2 SAT OF 94%. ABLE TO ANSWER QUESTIONS. A/O X 4. C/O PAIN. PRN MORPHINE GIVEN. 0- MAXIPIME STARTED PER ORDERS. VANC WAS GOING IN LEFT AC AND LR BOLUS IN RIGHT AC ON ARRIVAL. MAXIPIME SCHEDULE OFF.
[2020-06-10] VITALS (24 sets, daily range): BP systolic 103–146; BP diastolic 68–92; Ht 172.7 cm; Wt 81.5 kg
--- NOTE | 2020-06-10 01:09 | NUR ---
EYES CLOSED, VSS. INDEPENDENT WITH REPOSITIONING
--- NOTE | 2020-06-10 01:43 | NUR ---
CALLED AND SPOKE WITH [facility] ABOUT CHANGING THE TIME OF MAXIPIME SINCE INTITIAL DOSE WASN'T STARTED UNTIL 2308 AND IT IS EVERY 8 HOURS. THEY ARE RE-TIMING IT.
--- NOTE | 2020-06-10 03:46 | NUR ---
0300-REASSESSMENT COMPLETED. NO CHANGES.
[2020-06-10 04:29] LABS: BASOPHILS 0.2 % (0-2); EOSINOPHILS 2.6 % (0-7); HEMATOCRIT 31.6 % (42.0-54.0); IMMATURE GRANULOCYTES 0.2 % (0-5); LYMPHOCYTES 19.2 % (15-50); MCH 28.6 pg (26.0-34.0); MCHC 32.3 g/dL (31.0-37.0); MCV 88.5 fL (80.0-100.0); MEAN PLATELET VOLUME 9.9 fL (7.4-10.4); MONOCYTES 7.4 % (2-11); NEUTROPHILS 70.4 % (40-80); RDW 13.4 % (11.5-14.5)
[2020-06-10 04:30] LABS: HEMOGLOBIN 10.2 g/dL (13.5-17.5); PLATELET COUNT 220 10x3/uL (130-400); RBC 3.57 10x6/uL (4.20-6.10); WBC 11.7 10x3/uL (4.8-10.8)
[2020-06-10 04:56] LABS: ALBUMIN 2.4 g/dL (3.4-5.0); ALKALINE PHOSPHATASE 82 U/L (30-120); BILIRUBIN - TOTAL 0.41 mg/dL (0.2-1.3); CALC OSMOLALITY 265 mosm/kg (275-300); CALCIUM 8.4 mg/dL (8.5-10.1); CARBON DIOXIDE 32.2 mmol/L (21.0-32.0); CHLORIDE - SERUM 99 mmol/L (98-107); CKMB 0.9 U/L (0.0-3.6); CREATINE KINASE 44 UL (21-232); CREATININE - SERUM 0.9 mg/dL (0.6-1.3); GLUCOSE 110 mg/dL (74-106); MAGNESIUM - SERUM 1.2 mg/dL (1.8-2.4); POTASSIUM - SERUM 3.4 mmol/L (3.5-5.1); PROTEIN - SERUM 5.8 g/dL (6.4-8.2); SODIUM 134 mmol/L (136-145); UREA NITROGEN 5 mg/dL (7-18); eGFR NON AFRICAN AMERICAN > 90 mL/min (90-120)
[2020-06-10 04:57] LABS: ALT (SGPT) 20 U/L (10-68); TROPONIN-I < 0.017 ng/mL (0.000-0.060)
--- NOTE | 2020-06-10 05:35 | NUR ---
REPLACED POTASSIUM AND MAG PER PROTOCOL.
--- NOTE | 2020-06-10 10:00 | NUR ---
0700 REPORT RECIEVED AND CARE ASSUMED OF PATIENT.. SEE FLOW SHEET FOR SHIFT ASSESMENT FINDINGS..
--- NOTE | 2020-06-10 17:29 | NUR ---
0900 MEDS GIVEN.. PT HAS C/O PAIN MORPHINE HAS BEEN GIVEN.. [address] COL[address] DR ABEL IN TO SEE PATIENT AT THIS TIME.. 1300 IN TO SEE PATIENT.. 1400 GONE FROM BEDSIDE 1500 RESTING QUIETLY AT THIS TIME. 1600 AT BEDSIDE.. MORPHINE GIVEN FOR C/O PAIN.. 1700 DDIET SERVED FEEDING SELF..
--- NOTE | 2020-06-10 23:00 | NUR ---
1900-ASSESSMENT COMPLETED. 2100- VSS. NO CHANGES 2300-REASSESSMENT COMPLETED. INDEPENDENT WITH REPOSITIONING REFUSED G
[2020-06-11] VITALS (24 sets, daily range): BP systolic 107–147; BP diastolic 64–97
--- NOTE | 2020-06-11 00:25 | NUR ---
SPUTUM COLLECTED. SENT TO LAB
--- NOTE | 2020-06-11 04:37 | NUR ---
0300-REASSESSMENT COMPLETED. NO CHANGES 0435- C/O ANXIETY OVER HAVING TO GET BLOOD DRAWN. NO CHANGES
[2020-06-11 08:25] LABS: BASOPHILS 0.1 % (0-2); EOSINOPHILS 0 % (0-7); HEMATOCRIT 33.1 % (42.0-54.0); HEMOGLOBIN 10.8 g/dL (13.5-17.5); IMMATURE GRANULOCYTES 0.1 % (0-5); LYMPHOCYTES 9.8 % (15-50); MCH 28.7 pg (26.0-34.0); MCHC 32.6 g/dL (31.0-37.0); MEAN PLATELET VOLUME 9.7 fL (7.4-10.4); MONOCYTES 0.6 % (2-11); NEUTROPHILS 89.4 % (40-80); PLATELET COUNT 246 10x3/uL (130-400); RBC 3.76 10x6/uL (4.20-6.10); RDW 13.3 % (11.5-14.5); WBC 6.7 10x3/uL (4.8-10.8)
[2020-06-11 08:35] LABS: ALKALINE PHOSPHATASE 92 U/L (30-120); ALT (SGPT) 25 U/L (10-68); BILIRUBIN - TOTAL 0.37 mg/dL (0.2-1.3); CALC OSMOLALITY 276 mosm/kg (275-300); CALCIUM 8.9 mg/dL (8.5-10.1); CARBON DIOXIDE 30.7 mmol/L (21.0-32.0); CHLORIDE - SERUM 100 mmol/L (98-107); GLUCOSE 166 mg/dL (74-106); MAGNESIUM - SERUM 1.5 mg/dL (1.8-2.4); POTASSIUM - SERUM 3.5 mmol/L (3.5-5.1); PROTEIN - SERUM 6.4 g/dL (6.4-8.2); SODIUM 138 mmol/L (136-145); UREA NITROGEN 4 mg/dL (7-18); VANCOMYCIN - TROUGH 7.2 ug/mL (10.0-20.0); eGFR NON AFRICAN AMERICAN 83 mL/min (90-120)
--- NOTE | 2020-06-11 17:18 | NUR ---
0700 REPORT RECIEVED AND CARE ASSUMED OF PATIENT.. SEE FLOW SHEET FOR SHIFT ASSESMENT FINDINGS.. 0830 MEDS GIVEN AND BREAKFAST SERVED.. IV MOVED TO RIGHT AC.. LEFT IS PUFFY AND RED 0900 IN TO SEE PATIENT.. 1050 DR ABEL IN TO SEE PATIENT .. UPDATE GIVEN.. PATIENT IS HIGHLY ANXIOUS.. 1200 IN TO SEE PATIENT.. LUNCH SERVED FEEDING SELF 1230 MEDS GIVEN.. 1330 GONE FROM BEDSIDE 1430 PT IS MORE RELAXED AT THIS TIME.. 1530 I AND O DONE 1630 DINNER SERVED AND PATIENT FEEDING SELF.. 16
--- NOTE | 2020-06-11 20:15 | NUR ---
REC'D AGITATED, MOANING "TERRIBLE PAIN" INITIAL ASSESSMENT COMPLETED RECORDED PER FLOW SHEET. RIGHT AC PIV PATENT WITH NS @ 5CC/HR. ON 4L NC, WITH CRACKLES AUSCULTATED. BALANCE OF ASSESSMENT WNL. IN PASCALE SCDS
--- NOTE | 2020-06-11 23:30 | NUR ---
MEDICATED WITH PERCOCET AND MORPHINE ABOUT A HALF HOUR AGO. LYING QUIETER BUT STILL MAKING THE MOANING SOUNDS. HAS TRIED TO HAVE A BM A COUPLE OF TIMES WITHOUT SUCCESS. WILL CONT TO MONITOR.
[2020-06-12] VITALS (11 sets, daily range): BP systolic 90–124; BP diastolic 57–77
--- NOTE | 2020-06-12 03:15 | NUR ---
C/O OF PAIN AT A 7 WANTING TO TRY TO SEPARATE PAIN MEDS GAVE MORPHINE 4MG @ 0310 BUT THROUGH THE VIAL IN SHARPS AFTER SCANNING BUT SCAN DID NOT TAKE. WILL GIVE PERCOCET AT AROUND 5.
[2020-06-12 04:18] LABS: HEMATOCRIT 30.7 % (42.0-54.0); HEMOGLOBIN 10.1 g/dL (13.5-17.5); MCH 28.9 pg (26.0-34.0); MCHC 32.9 g/dL (31.0-37.0); MCV 87.7 fL (80.0-100.0); MEAN PLATELET VOLUME 9.8 fL (7.4-10.4); PLATELET COUNT 296 10x3/uL (130-400); RDW 13.3 % (11.5-14.5); WBC 23.8 10x3/uL (4.8-10.8)
[2020-06-12 04:22] LABS: ALBUMIN 2.6 g/dL (3.4-5.0); ALKALINE PHOSPHATASE 80 U/L (30-120); ALT (SGPT) 25 U/L (10-68); CALC OSMOLALITY 279 mosm/kg (275-300); CALCIUM 8.8 mg/dL (8.5-10.1); CARBON DIOXIDE 31.6 mmol/L (21.0-32.0); CHLORIDE - SERUM 102 mmol/L (98-107); CREATININE - SERUM 0.9 mg/dL (0.6-1.3); GLUCOSE 131 mg/dL (74-106); MAGNESIUM - SERUM 1.4 mg/dL (1.8-2.4); POTASSIUM - SERUM 3.3 mmol/L (3.5-5.1); PROTEIN - SERUM 6.4 g/dL (6.4-8.2); SODIUM 140 mmol/L (136-145); UREA NITROGEN 10 mg/dL (7-18); eGFR NON AFRICAN AMERICAN > 90 mL/min (90-120)
[2020-06-12 05:04] LABS: LYMPHOCYTES 9 % (15-50); NEUTROPHILS 85 % (40-80); PLATELET ESTIMATE NORMAL
--- NOTE | 2020-06-12 06:00 | NUR ---
HAVE BEEN ABLE TO MAINTAIN A MODICUM OF COMFORT THROUGHOUT THE NIGHT. STARTED TO GET OUT OF BED, 'HAVE TO GO TO BATHROOM". GOT BACK UP IN BED BUT HAS REMOVED ALL DEVICES. 'CAN'T WIPE MY BUTT WITH THAT THING ON MY FINGER'
--- NOTE | 2020-06-12 07:00 | NUR ---
ASSESSMENT COMPLETE PER FLOWSHEET. VOICES NO CO AT TIME.
--- NOTE | 2020-06-12 09:00 | NUR ---
SITTING UP IN CHAIR. BATH GIVEN. VOICES NO CO AT TIME.
--- NOTE | 2020-06-12 10:13 | NUR ---
Nutrition follow-up: Pt sleeping at time of RDN visit Pt receiving a regular diet with po intake ~60% average of last 2 meals; pt able to feed self Labs reviewed Wt: 180# +BM RDN following.
--- NOTE | 2020-06-12 12:00 | NUR ---
SITTING UP IN BED. VOICES NO CO AT TIME.
--- NOTE | 2020-06-12 15:00 | NUR ---
SLEEPING NO DISTRESS NOTED. SR UP X 2. CALL LIGHT WITHIN REACH.
--- NOTE | 2020-06-12 17:23 | NUR ---
EATING DINNER. VOICES NO CO AT TIME.
--- NOTE | 2020-06-12 21:08 | NUR ---
PT FAMILY UPDATED NO QUESTIONS OR CONCERNS AT THIS TIME. PT A/O X4. VITALS STABLE AT THIS TIME. BED LOW CALL LIGHT WITHIN REACH. WILL CONTINUE TO MONITOR.
[2020-06-13] VITALS (11 sets, daily range): BP systolic 96–131; BP diastolic 50–86
[2020-06-13 03:13] LABS: BASOPHILS 0 % (0-2); EOSINOPHILS 0.6 % (0-7); HEMOGLOBIN 10.4 g/dL (13.5-17.5); IMMATURE GRANULOCYTES 0.7 % (0-5); LYMPHOCYTES 4.1 % (15-50); MCHC 32.5 g/dL (31.0-37.0); MCV 89.1 fL (80.0-100.0); MEAN PLATELET VOLUME 9.8 fL (7.4-10.4); MONOCYTES 1.7 % (2-11); NEUTROPHILS 92.9 % (40-80); PLATELET COUNT 331 10x3/uL (130-400); RBC 3.59 10x6/uL (4.20-6.10); RDW 13.9 % (11.5-14.5); WBC 28.5 10x3/uL (4.8-10.8)
[2020-06-13 03:23] LABS: ALKALINE PHOSPHATASE 82 U/L (30-120); ALT (SGPT) 27 U/L (10-68); BILIRUBIN - TOTAL 0.26 mg/dL (0.2-1.3); CALC OSMOLALITY 281 mosm/kg (275-300); CALCIUM 9.3 mg/dL (8.5-10.1); CARBON DIOXIDE 31.8 mmol/L (21.0-32.0); CHLORIDE - SERUM 101 mmol/L (98-107); GLUCOSE 153 mg/dL (74-106); MAGNESIUM - SERUM 1.7 mg/dL (1.8-2.4); POTASSIUM - SERUM 3.3 mmol/L (3.5-5.1); PROTEIN - SERUM 6.8 g/dL (6.4-8.2); SODIUM 139 mmol/L (136-145); eGFR NON AFRICAN AMERICAN 83 mL/min (90-120)
[2020-06-13 03:28] LABS: UREA NITROGEN 16 mg/dL (7-18)
--- NOTE | 2020-06-13 12:57 | NUR ---
up in chair. voices no co at time.
--- NOTE | 2020-06-13 15:00 | NUR ---
REPORT CALLED TO LELAND OTT.
--- NOTE | 2020-06-13 15:43 | NUR ---
TRANSFER VIA WC.
--- NOTE | 2020-06-13 19:10 | NUR ---
PATIENT RESTING WHEN ENTERING THE ROOM. AROUSES WHEN NAME IS CALLED. PATIENT IS ALERT AND ORIENTED. WEARING 5L NC PER ORDER. PATIENT HAS SHALLOW BREATHING. ENCOURAGED BREATHING EXERCISES. FALL PRECAUTIONS IN PLACE. ASSESSMENT COMPLETE. CALL LIGHT CLOSE. CPOC.
--- NOTE | 2020-06-14 03:01 | NUR ---
PATIENT REQUESTING PRN PAIN MEDICINE FOR 07/27. ADMINISTERED MORPHINE PER ORDER. DENIES FURTHER NEEDS. FALL PRECAUTIONS REMAIN IN PLACE. CALL LIGHT CLOSE. CPOC.
[2020-06-14 04:00] VITALS: BP 111/76
[2020-06-14 05:17] LABS: BASOPHILS 0 % (0-2); EOSINOPHILS 0 % (0-7); HEMATOCRIT 29.5 % (42.0-54.0); HEMOGLOBIN 9.4 g/dL (13.5-17.5); IMMATURE GRANULOCYTES 0.5 % (0-5); LYMPHOCYTES 5.8 % (15-50); MCH 28.4 pg (26.0-34.0); MCHC 31.9 g/dL (31.0-37.0); MCV 89.1 fL (80.0-100.0); MEAN PLATELET VOLUME 9.3 fL (7.4-10.4); MONOCYTES 2.8 % (2-11); NEUTROPHILS 90.9 % (40-80); PLATELET COUNT 276 10x3/uL (130-400); RBC 3.31 10x6/uL (4.20-6.10)
[2020-06-14 05:37] LABS: WBC 18.5 10x3/uL (4.8-10.8)
[2020-06-14 05:47] LABS: ALBUMIN 2.6 g/dL (3.4-5.0); ALKALINE PHOSPHATASE 72 U/L (30-120); ALT (SGPT) 21 U/L (10-68); BILIRUBIN - TOTAL 0.31 mg/dL (0.2-1.3); CALC OSMOLALITY 282 mosm/kg (275-300); CALCIUM 8.8 mg/dL (8.5-10.1); CARBON DIOXIDE 33.7 mmol/L (21.0-32.0); CHLORIDE - SERUM 103 mmol/L (98-107); CREATININE - SERUM 0.9 mg/dL (0.6-1.3); GLUCOSE 160 mg/dL (74-106); MAGNESIUM - SERUM 1.9 mg/dL (1.8-2.4); SODIUM 140 mmol/L (136-145); UREA NITROGEN 14 mg/dL (7-18); eGFR NON AFRICAN AMERICAN > 90 mL/min (90-120)
[2020-06-14 08:00] VITALS: BP 128/80
--- NOTE | 2020-06-14 09:45 | NUR ---
PT LAYING IN BED, MOANING AND C/O PAIN IN ABD, PROVIDED PAIN MEDS PER ORDER. PIV IN RIGHT AC, PATENT, NON-TENDER, NO REDNESS OR SWELLING. O2 VIA NC 7L, 98% SAT. BRUISES BILAT UPPER EXTREMITIES AND ABD. PT ABLE TO AMBULATE WITH ASSIST TO BC, REFUSES SCDS, LOVENOX FOR DVT PROPH. EDUCATED PT ON CL, VERBALIZED UNDERSTANDING. BED LOW, RAILS X2. CL IN REACH. DENIES FURTHER NEEDS. WILL CONTINUE TO MONITOR.
[2020-06-14 12:00] VITALS: BP 122/78
--- NOTE | 2020-06-14 12:45 | NUR ---
PT LAYING IN BED, C/O PAIN IN ABD. PROVIDED PAIN MEDS PER ORDER. ASSISTED TO BC, UNABLE TO HAVE BM. PT STATES HE WILL TRY AGAIN LATER. DENIES FURTHER NEEDS. BED LOW, RAILS X2. CL IN REACH. WILL CONTIUE TO MONITOR.
[2020-06-14 16:00] VITALS: BP 117/75
--- NOTE | 2020-06-14 19:45 | NUR ---
PT LAYING IN BED, EYES CLOSED, EVEN RESPIRATIONS. WILL CONTINUE TO MONITOR.
[2020-06-14 20:00] VITALS: BP 131/85
[2020-06-15] VITALS: BP 132/87
[2020-06-15 04:00] VITALS: BP 136/79
[2020-06-15 06:20] LABS: HEMATOCRIT 32.6 % (42.0-54.0); HEMOGLOBIN 10.6 g/dL (13.5-17.5); MCHC 32.5 g/dL (31.0-37.0); MCV 89.3 fL (80.0-100.0); MEAN PLATELET VOLUME 9.7 fL (7.4-10.4); PLATELET COUNT 296 10x3/uL (130-400); RBC 3.65 10x6/uL (4.20-6.10); RDW 13.9 % (11.5-14.5); WBC 21.3 10x3/uL (4.8-10.8)
[2020-06-15 06:31] LABS: ALBUMIN 2.8 g/dL (3.4-5.0); ALKALINE PHOSPHATASE 86 U/L (30-120); ALT (SGPT) 20 U/L (10-68); BILIRUBIN - TOTAL 0.38 mg/dL (0.2-1.3); CALC OSMOLALITY 283 mosm/kg (275-300); CARBON DIOXIDE 37.2 mmol/L (21.0-32.0); CHLORIDE - SERUM 100 mmol/L (98-107); CREATININE - SERUM 0.9 mg/dL (0.6-1.3); GLUCOSE 175 mg/dL (74-106); POTASSIUM - SERUM 3.8 mmol/L (3.5-5.1); PROTEIN - SERUM 6.2 g/dL (6.4-8.2); SODIUM 139 mmol/L (136-145); UREA NITROGEN 18 mg/dL (7-18); eGFR NON AFRICAN AMERICAN > 90 mL/min (90-120)
[2020-06-15 06:45] LABS: LYMPHOCYTES 5 % (15-50); MONOCYTES 1 % (2-11); NEUTROPHILS 92 % (40-80); PLATELET ESTIMATE NORMAL
[2020-06-15 10:59] VITALS: BP 141/83
[2020-06-15 13:16] VITALS: BP 124/79
[2020-06-15 18:02] VITALS: BP 137/77
--- NOTE | 2020-06-15 18:35 | NUR ---
PATIENT RECIEVED MORPHINE 4 MG IVP SLOWLY OVER 4 MINUTES. IV INTACT. O2 ON AT THIS TIME. NO COMPLAINTS OR SIGNS OF DISTRESS. CALL LIGHT WITHIN REACH.
[2020-06-15 20:00] VITALS: BP 104/83
[2020-06-15 21:01] LABS: BILIRUBIN NEGATIVE (NEGATIVE); GLUCOSE NEGATIVE (NEGATIVE); KETONE NEGATIVE (NEGATIVE); NITRITE NEGATIVE (NEGATIVE); UROBILINOGEN NORMAL (NORMAL)
--- NOTE | 2020-06-16 02:26 | NUR ---
I have reviewed this patient and I concur with the Shift Assessment completed by the Licensed Practical Nurse today this shift.
[2020-06-16 06:51] LABS: BASOPHILS 0.1 % (0-2); EOSINOPHILS 0.1 % (0-7); HEMATOCRIT 33.8 % (42.0-54.0); HEMOGLOBIN 10.7 g/dL (13.5-17.5); IMMATURE GRANULOCYTES 0.8 % (0-5); LYMPHOCYTES 8.8 % (15-50); MCH 28.3 pg (26.0-34.0); MCHC 31.7 g/dL (31.0-37.0); MCV 89.4 fL (80.0-100.0); MEAN PLATELET VOLUME 9.4 fL (7.4-10.4); MONOCYTES 2.8 % (2-11); NEUTROPHILS 87.4 % (40-80); PLATELET COUNT 277 10x3/uL (130-400); RBC 3.78 10x6/uL (4.20-6.10); RDW 13.8 % (11.5-14.5)
[2020-06-16 07:02] LABS: CALC OSMOLALITY 278 mosm/kg (275-300); CALCIUM 8.7 mg/dL (8.5-10.1); CARBON DIOXIDE 37.9 mmol/L (21.0-32.0); CHLORIDE - SERUM 97 mmol/L (98-107); CREATININE - SERUM 0.8 mg/dL (0.6-1.3); GLUCOSE 210 mg/dL (74-106); POTASSIUM - SERUM 3.9 mmol/L (3.5-5.1); SODIUM 136 mmol/L (136-145); UREA NITROGEN 16 mg/dL (7-18); eGFR NON AFRICAN AMERICAN > 90 mL/min (90-120)
--- NOTE | 2020-06-16 08:45 | NUR ---
PATIENT IN BED WITH IV INTACT. NO COMPLAINTS OR SIGNS OF DISTRESS. CALL LIGHT WITHIN REACH.
[2020-06-16 09:50] VITALS: BP 127/81
[2020-06-16 12:15] VITALS: BP 142/85
--- NOTE | 2020-06-16 13:57 | MORECARE ---
CASE MANAGEMENT DISCHARGE SUMMARY PATIENT: DAJA LAZARO UNIT: [id number] ADM DATE: 06/09/20 AGE: 54 : 65 SEX: M ROOM/BED: D.2218 AUTHOR: ADRYAN DAVID PHYSICIAN: REFERRING PHYSICIAN: ANJELICA COLUNGA MD DATE OF SERVICE: 06/16/20 Discharge Plan Patient Name: DAJA LAZARO Facility: [facility]:[place] : 1965 Planned Disposition: Anticipated Discharge Date: Discharge Date: Expected LOS: Initial Reviewer: [email or web address] Initial Review Date: 06/09/2020 Generated: 06/16/20 2:56 pm Patient Name: DAJA LAZARO Page [phone] at 1357 All edits/amendments must be made on the electronic document DICTATION DATE: 06/16/20 1356 TRAINING AND DEVELOPMENT OFFICER: BRITTNEE 06/16/20 1356 RPT#: [id number] DC DATE: STATUS: ADM IN [facility] [address] [place] [address] END OF REPORT
--- NOTE | 2020-06-16 14:09 | MORECARE ---
CASE MANAGEMENT DISCHARGE SUMMARY PATIENT: DAJA LAZARO UNIT: [id number] ADM DATE: 06/09/20 AGE: 54 : 65 SEX: M ROOM/BED: D.2218 AUTHOR: ADRYAN DAVID PHYSICIAN: REFERRING PHYSICIAN: ANJELICA COLUNGA MD DATE OF SERVICE: 06/16/20 Discharge Plan Patient Name: DAJA LAZARO Facility: [facility]:[place] : 1965 Planned Disposition: Anticipated Discharge Date: Discharge Date: Expected LOS: Initial Reviewer: [email or web address] Initial Review Date: 06/09/2020 Generated: 06/16/20 3:08 pm Comments DCP- Discharge Planning Updated by [id number]: Charlotte Driver on 06/16/20 12:[address] ATTEMPTED TO SEE THE PATIENT FOR CM ASSESSMENT AND WHEN I ARRIVED HE WAS HAVING TROUBLE BREATHING HIS POX WAS 47% ON 10L, HIS BREATHING SLOWED AND THEY INCREASED HIS O2 TO 15L POX WAS RISING, RT AT BEDSIDE AND DR SWEET ON FLOOR WAS NOTIFIED. WILL ATTEMPT TO SEE AGAIN AT A LATER TIME. HIS IS AT THE BEDSIDE Last DP export: 06/16/20 12:57 p Patient Name: DAJA LAZARO Page [id number] at 1409 All edits/amendments must be made on the electronic document DICTATION DATE: 06/16/201407 BIOFUELS PLANT CONSTRUCTION WORKER: BRITTNEE 06/16/20 1408 RPT#: [id number] DC DATE: STATUS: ADM IN [facility] [address] [place] [address] END OF REPORT
--- NOTE | 2020-06-16 14:45 | NUR ---
PATIENT SATS DROPPED WHILE AMBULATING. WENT BACK TO ROOM AND IN BED. TURNED O2 UP AND EXPLAINED TO PATIENT TO TAKE DEEP BREATHS THRU NOSE AND OUT THRU MOUTH. FOLLOWED INSTRUCTIONS, RESPIRATORY TO ROOM. PATIENT SATS UP TO 92 ON 13LHFC. CALL LIGHT WITHIN REACH. FAMILY AT BEDSIDE. RT GIVING TREATMENT.
--- NOTE | 2020-06-16 15:00 | NUR ---
RT STATED PATIENT SATS ARE BACK TO 98 ON 5L HFC
[2020-06-16 16:33] VITALS: BP 131/83
--- NOTE | 2020-06-16 18:45 | NUR ---
PATIENT IN BED WITH IV INTACT. CALL LIGHT WITHIN REACH.
[2020-06-16 20:00] VITALS: BP 118/81
[2020-06-17 00:18] VITALS: BP 120/82
[2020-06-17 04:00] VITALS: BP 117/74
[2020-06-17 05:36] LABS: BASOPHILS 0 % (0-2); EOSINOPHILS 0 % (0-7); HEMATOCRIT 33.8 % (42.0-54.0); HEMOGLOBIN 10.7 g/dL (13.5-17.5); IMMATURE GRANULOCYTES 0.6 % (0-5); LYMPHOCYTES 9.3 % (15-50); MCH 28.4 pg (26.0-34.0); MCHC 31.7 g/dL (31.0-37.0); MCV 89.7 fL (80.0-100.0); MEAN PLATELET VOLUME 8.9 fL (7.4-10.4); MONOCYTES 3.4 % (2-11); NEUTROPHILS 86.7 % (40-80); PLATELET COUNT 255 10x3/uL (130-400); RBC 3.77 10x6/uL (4.20-6.10); RDW 14.1 % (11.5-14.5); WBC 18.1 10x3/uL (4.8-10.8)
[2020-06-17 05:49] LABS: CALCIUM 8.7 mg/dL (8.5-10.1); CHLORIDE - SERUM 98 mmol/L (98-107); CREATININE - SERUM 0.9 mg/dL (0.6-1.3); POTASSIUM - SERUM 3.8 mmol/L (3.5-5.1); SODIUM 137 mmol/L (136-145); UREA NITROGEN 19 mg/dL (7-18); eGFR NON AFRICAN AMERICAN > 90 mL/min (90-120)
[2020-06-17 05:50] LABS: CALC OSMOLALITY 278 mosm/kg (275-300); GLUCOSE 154 mg/dL (74-106)
[2020-06-17 05:51] LABS: CARBON DIOXIDE 42.7 mmol/L (21.0-32.0)
--- NOTE | 2020-06-17 07:05 | NUR ---
RECEIVED REPORT, ASSUMED CARE, DENIES NEEDS, BREATHING EVEN UNLABORED, SITTING UP IN BED, CALL LIGHT IN REACH, IV PATENT SL, 5L HF NC, WILL CONTINUE POC
[2020-06-17 09:42] VITALS: BP 128/78
[2020-06-17 12:52] VITALS: BP 115/75
[2020-06-17 17:15] VITALS: BP 112/74
--- NOTE | 2020-06-17 19:00 | NUR ---
BEDSIDE REPORT RECEIVED AND CARE OF PT ASSUMED. PT LYING IN HIGH AMBROSE'S POSITION WITH EYES CLOSED. IV TO RIGHT AC SALINE LOCKED. O2 IN USE VIA HI FLOW NS AT 5L. WILL MONITOR FOR NEEDS.
[2020-06-17 20:00] VITALS: BP 107/74
--- NOTE | 2020-06-17 21:26 | NUR ---
HS MEDICATIONS GIVEN. WILL CONTINUE TO MONITOR FOR NEEDS.
[2020-06-18] VITALS: BP 110/72
--- NOTE | 2020-06-18 02:45 | NUR ---
PT WOKE UP COUGHING AND C/O SOB. SPO2 57% ON 5L O2. TURNED UP TO 7L AND HAD PT SLOW DOWN BREATHING AND DEEP BREATH. CALLED RESPIRATORY TO EVAL. SPO2 UP TO 90% NOW...RT AT BEDSIDE.
[2020-06-18 04:00] VITALS: BP 118/78
[2020-06-18 09:07] VITALS: BP 110/60
[2020-06-18 09:45] LABS: BASOPHILS 0 % (0-2); EOSINOPHILS 0.1 % (0-7); HEMATOCRIT 37.5 % (42.0-54.0); IMMATURE GRANULOCYTES 0.8 % (0-5); LYMPHOCYTES 8.5 % (15-50); MCV 90.6 fL (80.0-100.0); MEAN PLATELET VOLUME 9.7 fL (7.4-10.4); MONOCYTES 2.9 % (2-11); NEUTROPHILS 87.7 % (40-80); PLATELET COUNT 295 10x3/uL (130-400); RBC 4.14 10x6/uL (4.20-6.10); RDW 14.4 % (11.5-14.5); WBC 17.1 10x3/uL (4.8-10.8)
[2020-06-18 09:48] LABS: CALC OSMOLALITY 283 mosm/kg (275-300); CHLORIDE - SERUM 95 mmol/L (98-107); CREATININE - SERUM 0.9 mg/dL (0.6-1.3); GLUCOSE 174 mg/dL (74-106); POTASSIUM - SERUM 3.5 mmol/L (3.5-5.1); SODIUM 139 mmol/L (136-145); UREA NITROGEN 17 mg/dL (7-18); eGFR NON AFRICAN AMERICAN > 90 mL/min (90-120)
[2020-06-18 09:56] LABS: CARBON DIOXIDE 42.5 mmol/L (21.0-32.0)
--- NOTE | 2020-06-18 11:04 | NUR ---
HF NC IN PLACE. DENIES ANY NEEDS OR CONCERNS. PT LAYING ON BACK IN BED. CL IN REACH. WCTM
[2020-06-18 13:48] VITALS: BP 117/73
[2020-06-18 17:03] VITALS: BP 103/70
--- NOTE | 2020-06-18 19:00 | NUR ---
BEDSIDE REPORT RECEIVED AND CARE OF PT ASSUMED. PT LYING IN HIGH AMBROSE'S POSITION WITH EYES CLOSED. O2 IN USE VIA HIGH FLOW NC AT 6L. WILL MONITOR FOR NEEDS.
[2020-06-18 20:00] VITALS: BP 97/67
--- NOTE | 2020-06-18 21:03 | NUR ---
HS MEDICATIONS GIVEN. BHAVANA CONTINUE TO MONITOR FOR NEEDS.
[2020-06-19] VITALS: BP 104/58
[2020-06-19 06:21] LABS: BASOPHILS 0.1 % (0-2); EOSINOPHILS 5.2 % (0-7); HEMATOCRIT 33.8 % (42.0-54.0); HEMOGLOBIN 10.5 g/dL (13.5-17.5); LYMPHOCYTES 23.2 % (15-50); MCH 28.2 pg (26.0-34.0); MCHC 31.1 g/dL (31.0-37.0); MCV 90.9 fL (80.0-100.0); MEAN PLATELET VOLUME 9.3 fL (7.4-10.4); MONOCYTES 4.3 % (2-11); NEUTROPHILS 66.2 % (40-80); PLATELET COUNT 260 10x3/uL (130-400); RBC 3.72 10x6/uL (4.20-6.10); RDW 14.7 % (11.5-14.5); WBC 14.5 10x3/uL (4.8-10.8)
[2020-06-19 06:35] LABS: CALCIUM 8.3 mg/dL (8.5-10.1); CHLORIDE - SERUM 97 mmol/L (98-107); CREATININE - SERUM 0.9 mg/dL (0.6-1.3); POTASSIUM - SERUM 3.3 mmol/L (3.5-5.1); SODIUM 135 mmol/L (136-145); UREA NITROGEN 15 mg/dL (7-18); eGFR NON AFRICAN AMERICAN > 90 mL/min (90-120)
[2020-06-19 06:39] LABS: CALC OSMOLALITY 271 mosm/kg (275-300); GLUCOSE 116 mg/dL (74-106)
[2020-06-19 06:41] LABS: CARBON DIOXIDE 45.4 mmol/L (21.0-32.0)
[2020-06-19 08:41] VITALS: BP 126/82
[2020-06-19 12:27] VITALS: BP 102/74
[2020-06-19 16:38] VITALS: BP 112/72
--- NOTE | 2020-06-19 19:00 | NUR ---
BEDSIDE REPORT RECEIVED AND CARE OF PT ASSUMED. PT SITTING UP IN HIGH AMBROSE'S POSITION WATCHING TV. IV TO RIGHT AC SALINE LOCKED. O2 IN USE VIA HI FLOW NC AT 6L. WILL MONITOR FOR NEEDS.
--- NOTE | 2020-06-19 19:55 | NUR ---
HS MEDICATIONS GIVEN. WILL CONTINUE TO MONITOR FOR NEEDS.
[2020-06-19 20:00] VITALS: BP 151/70
--- NOTE | 2020-06-19 20:30 | NUR ---
HS SNACK GIVEN: X2 ICE CREAM.
[2020-06-20] VITALS: BP 103/70
[2020-06-20 04:00] VITALS: BP 98/67
[2020-06-20 08:51] LABS: BASOPHILS 0 % (0-2); EOSINOPHILS 2.1 % (0-7); HEMATOCRIT 35.7 % (42.0-54.0); HEMOGLOBIN 11.5 g/dL (13.5-17.5); IMMATURE GRANULOCYTES 0.7 % (0-5); LYMPHOCYTES 17.3 % (15-50); MCH 29.3 pg (26.0-34.0); MCHC 32.2 g/dL (31.0-37.0); MCV 90.8 fL (80.0-100.0); MEAN PLATELET VOLUME 8.6 fL (7.4-10.4); MONOCYTES 4.5 % (2-11); NEUTROPHILS 75.4 % (40-80); PLATELET COUNT 241 10x3/uL (130-400); RBC 3.93 10x6/uL (4.20-6.10); RDW 14.5 % (11.5-14.5); WBC 16.6 10x3/uL (4.8-10.8)
[2020-06-20 09:07] VITALS: BP 133/84
[2020-06-20 09:08] LABS: CALC OSMOLALITY 267 mosm/kg (275-300); CALCIUM 9.1 mg/dL (8.5-10.1); CARBON DIOXIDE 39.3 mmol/L (21.0-32.0); CHLORIDE - SERUM 96 mmol/L (98-107); CREATININE - SERUM 0.9 mg/dL (0.6-1.3); GLUCOSE 92 mg/dL (74-106); POTASSIUM - SERUM 4.3 mmol/L (3.5-5.1); SODIUM 134 mmol/L (136-145); UREA NITROGEN 13 mg/dL (7-18); eGFR NON AFRICAN AMERICAN > 90 mL/min (90-120)
[2020-06-20 12:42] VITALS: BP 112/80
[2020-06-20] MEDS ORDERED: TESSALON PERLE100 MG PO (13:17)
[2020-06-20] MEDS ORDERED: PREDNISONE10 MG PO (13:18)
[2020-06-20] MEDS ORDERED: MUCINEX DM ER1 EAC1 PO (13:18)
[2020-06-20] MEDS ORDERED: FLUTICASONE PRO16 GM NASAL (13:18)
--- NOTE | 2020-06-20 13:51 | MORECARE ---
CASE MANAGEMENT DISCHARGE SUMMARY PATIENT: DAJA LAZARO UNIT: [id number] ADM DATE: 06/09/20 AGE: 54 : 65 SEX: M ROOM/BED: D.2218 AUTHOR: ADRYAN DAVID PHYSICIAN: REFERRING PHYSICIAN: ANJELICA COLUNGA MD DATE OF SERVICE: 06/20/20 Discharge Plan Patient Name: DAJA LAZARO Facility: [facility]:[place] : 1965 Planned Disposition: Home with Home Health Anticipated Discharge Date: Discharge Date: Expected LOS: Initial Reviewer: [email or web address] Initial Review Date: 06/09/2020 Generated: 06/20/20 2:51 pm Comments DCP- Discharge Planning Updated by [id number]: Charlotte Driver on 06/16/20 12:[address] ATTEMPTED TO SEE THE PATIENT FOR CM ASSESSMENT AND WHEN I ARRIVED HE WAS HAVING TROUBLE BREATHING HIS POX WAS 47% ON 10L, HIS BREATHING SLOWED AND THEY INCREASED HIS O2 TO 15L POX WAS RISING, RT AT BEDSIDE AND DR SWEET ON FLOOR WAS NOTIFIED. WILL ATTEMPT TO SEE AGAIN AT A LATER TIME. HIS IS AT THE BEDSIDE DCPIA - Discharge Planning Initial Assessment Updated by [email or web address]: Charlotte Driver on 06/20/20 1:50 pm * Is the patient Alert and Oriented? Yes * How many steps to enter\exit or inside your home? * P[facility] MAURA [facility] * Preadmission Environment Home with Family * ADLs Independent * Equipment Nebulizer Other Oxygen * List name and contact numbers for known caregivers / representatives who currently or will assist patient after discharge: LINH ROCKWELL [phone] * Verbal permission to speak to the caregivers and representatives has been obtained from the patient. N/A * Community resources currently utilized None * Additional services required to return to the preadmission environment? Yes * Can the patient safely return to the preadmission environment? Yes * Has this patient been hospitalized within the prior 30 days at any hospital? Yes Last DP export: 06/16/20 1:09 p Patient Name: DAJA LAZARO Page 37574 at 1351 All edits/amendments must be made on the electronic document DICTATION DATE: 06/20/20 1351 DIRECTOR LEARNING: BRITTNEE 06/20/20 1351 RPT#: [id number] DC DATE: STATUS: ADM IN [facility] [address] [place] [address] END OF REPORT
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
--- NOTE | 2020-06-20 17:45 | NUR ---
PATIENT RECIEVED DC INSTRUCTIONS. VERBAIZED UNDERSTANDING. NO QUESTIONS AT THIS TIME. IV REMOVED WITH CATH TIP INTACT. WAITING FOR TRANSPORTATION TO DC. METAL BASE BLOCKER ASSISTING WITH DRESSING AND BELONGINGS. CALL IGHT WITHIN REACH.
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
== END 2020-06-20 18:45 | disposition home or self-care (01) | DRG 199 ==
LOC: D.ER 12:30 → D.MS 20:11 → D.ICU 20:11 → D.MS 06-13 15:41
PROVIDERS: Family Medicine; ADMIT Emergency Medicine; ATTEND Emergency Medicine
DX: J93.83 Other pneumothorax (principal); J96.21 Acute and chronic respiratory failure with hypoxia; J18.9 Pneumonia, unspecified organism; E87.1 Hypo-osmolality and hyponatremia; J47.1 Bronchiectasis with (acute) exacerbation; F17.203 Nicotine dependence unspecified, with withdrawal; J98.2 Interstitial emphysema; E87.6 Hypokalemia; K21.9 Gastro-esophageal reflux disease without esophagitis; E03.9 Hypothyroidism, unspecified; I10 Essential (primary) hypertension; E78.5 Hyperlipidemia, unspecified; N40.0 Benign prostatic hyperplasia without lower urinary tract symptoms; D50.9 Iron deficiency anemia, unspecified; K73.9 Chronic hepatitis, unspecified; I25.10 Atherosclerotic heart disease of native coronary artery without angina pectoris; F41.9 Anxiety disorder, unspecified; F32.9 Major depressive disorder, single episode, unspecified; R31.9 Hematuria, unspecified

== ENCOUNTER 2020-06-25 08:22 | Emergency (ER) | payer MEDICAID ==
[~2020-06-25] VITALS: Ht 172.7 cm; Wt 81.8 kg
[~2020-06-25 08:22] MED LIST changes: +CHRONULAC30 ML PO; +FLUTICASONE PRO16 GM NASAL; +MUCINEX DM ER1 EAC1 PO
[2020-06-25 08:26] VITALS: Ht 172.7 cm; Wt 81.8 kg
[2020-06-25 09:06] LABS: APTT 26.3 SECONDS (22.8-39.4); CALC OSMOLALITY 276 mosm/kg (275-300); CALCIUM 9.9 mg/dL (8.5-10.1); CARBON DIOXIDE 29.2 mmol/L (21.0-32.0); CHLORIDE - SERUM 99 mmol/L (98-107); CREATININE - SERUM 1.1 mg/dL (0.6-1.3); GLUCOSE 140 mg/dL (74-106); INR 1.01 (0.85-1.17); PROTIME 13.3 SECONDS (11.6-15.0); SODIUM 136 mmol/L (136-145); UREA NITROGEN 22 mg/dL (7-18); eGFR NON AFRICAN AMERICAN 74 mL/min (90-120)
[2020-06-25 09:08] LABS: D-DIMER-QUANTITATIVE 0.54 ug/mLFEU (0.20-0.54)
[2020-06-25 09:11] LABS: HEMATOCRIT 45.2 % (42.0-54.0); HEMOGLOBIN 15.3 g/dL (13.5-17.5); MCH 29.5 pg (26.0-34.0); MCHC 33.8 g/dL (31.0-37.0); MCV 87.3 fL (80.0-100.0); MEAN PLATELET VOLUME 9.2 fL (7.4-10.4); PLATELET COUNT 299 10x3/uL (130-400); RBC 5.18 10x6/uL (4.20-6.10); RDW 14.3 % (11.5-14.5); WBC 20.2 10x3/uL (4.8-10.8)
[2020-06-25 09:20] LABS: ALBUMIN 3.6 g/dL (3.4-5.0); ALKALINE PHOSPHATASE 115 U/L (30-120); ALT (SGPT) 23 U/L (10-68); BILIRUBIN - TOTAL 0.91 mg/dL (0.2-1.3); CREATINE KINASE 83 UL (21-232); PRO BNP 534 pg/mL (0-125); PROTEIN - SERUM 8.2 g/dL (6.4-8.2)
[2020-06-25 09:22] LABS: TROPONIN-I < 0.017 ng/mL (0.000-0.060)
[2020-06-25 09:29] LABS: EOSINOPHILS 2 % (0-7); LYMPHOCYTES 21 % (15-50); MONOCYTES 7 % (2-11); NEUTROPHILS 70 % (40-80); PLATELET ESTIMATE NORMAL
[2020-06-25 10:54] VITALS: BP 116/78
== END 2020-06-25 10:58 | disposition other institution (70) ==
LOC: D.ER 08:22
PROVIDERS: Family Medicine
DX: R06.02 Shortness of breath (principal); D38.1 Neoplasm of uncertain behavior of trachea, bronchus and lung; R09.02 Hypoxemia; J84.9 Interstitial pulmonary disease, unspecified; D72.829 Elevated white blood cell count, unspecified; R00.0 Tachycardia, unspecified; I11.0 Hypertensive heart disease with heart failure; I50.9 Heart failure, unspecified; J44.9 Chronic obstructive pulmonary disease, unspecified; Z99.81 Dependence on supplemental oxygen